=== PATIENT | female | born 1930 | race African-American/Black ===

== ENCOUNTER 2016-09-07 20:20 | Observation (INO) | payer MEDICARE, OTHER ==
[~2016-09-07] VITALS: Ht 162.6 cm; Wt 98.7 kg
[~2016-09-07 20:20] MED LIST: ADVA100A INH; ALBUAER3 INH; ASPI1TAB69 PO; CALCCHW9 CHEW; CARV6.252 PO; FURO1TAB60 PO; HYDR-3533 PO; ISOS30TA3 PO; LISI10TA3 PO; METF500T PO; POTA10TA2 PO; TRIA40P I-ARTICULR; TRIA40P IA; VITA200012 PO
[2016-09-07 20:23] VITALS: BP 210/96; PULSE 72; RESP 20; TEMP 98.1; O2SAT 96
--- NOTE | 2016-09-07 21:07 | PD ---
HPI Chief Complaint: Fall Time Seen by Provider: 20:30 Travel History International Travel<30 days: No Contact w/Intl Traveler<30days: No Traveled to known affect area: No History of Present Illness HPI Patient is an 85-year-old female presenting to emergency for evaluation after a mechanical fall at home approximate hour and half prior to arrival. Consciousness per EMS patient was washing her dog when she fell backwards hitting her back on the bathtub. Patient was given 6 mg of morphine en route as well as IV Zofran. Patient denies any chest pain, shortness of breath, abdominal pain, weakness or numbness in her legs, no saddle paresthesia, no bladder or bowel incontinence. Patient was able to get herself into her living room and then called a friend and then 911 was called when they arrived. Patient rates her pain a 6 out of 10. It's worse with movement, relieved somewhat with rest. PFSH Past Medical History Arthritis: Yes Asthma: Yes Autoimmune Disease: No Blood Disorders: No Anxiety: No Depression: No Heart Rhythm Problems: No Cancer: No High Cholesterol: No Chemotherapy: No Chest Pain: No Congestive Heart Failure: Yes COPD: Yes Cerebrovascular Accident: Yes Coronary Artery Disease: Yes Diabetes: Yes Patient Takes Glucophage: Yes Diminished Hearing: Yes Endocrine: Yes Gastrointestinal Disorders: No GERD: Yes Glaucoma: No Genitourinary: No Headaches: Yes Hepatitis: No Hiatal Hernia: No Hypertension: Yes Immune Disorder: No Implanted Vascular Access Dvce: Yes (AICD, Medtronic) Kidney Stones: No Musculoskeletal: No Psychiatric: No Reproductive: No Integumentary: No Immunizations Current: No Migraines: No Myocardial Infarction: Yes Radiation Therapy: No Renal Failure: No Seizures: No Sickle Cell Disease: No Sleep Apnea: No Thyroid Disease: No Ulcer: No PNEUMOCCOCAL Vaccine (Year): 2010 ?: Not Menopausal: Yes Past Surgical History AICD: No Appendectomy: Yes Arteriovenous Shunt: No Cardiac Surgery: No Cholecystectomy: Yes Ear Surgery: No Endocrine Surgery: No Eye Surgery: No Hysterectomy: Yes Insulin Pump: No Joint Replacement: No Neurologic Surgery: No Oral Surgery: No Pacemaker: Yes Thoracic Surgery: No Other Surgery: No Social History Alcohol Use: No Tobacco Use: Yes (FORMER) Substance Use: No Allergies-Medications (Allergen,Severity, Reaction): Coded Allergies: Effexor (Verified Allergy, Intermediate, swelling, 09/07/16) swelling in feet Reported Meds & Prescriptions Reported Meds & Active Scripts Active Advair Diskus Inh (Fluticasone-Salmeterol Inh) 100-50 Mcg/Blist Aer 1 Puff INH BID Rinse mouth after use. Lisinopril 10 Mg Tab 10 Mg PO DAILY Lasix (Furosemide) 40 Mg Tab 40 Mg PO BID Lortab (Hydrocodone-Acetaminophen) 5-325 Mg Tab 0.5-1 Tab PO Q6HR PRN Proair Hfa 8.5 GM Inh (Albuterol Sulfate) 90 Mcg/Act Aer 2 Puff INH Q4-6H PRN 108 mcg/actuation Isosorbide Mononitrate ER (Isosorbide Mononitrate) 30 Mg [place] 30 Mg PO DAILY Potassium Chloride ER (Potassium Chloride) 10 Meq Tab 10 Meq PO DAILY Carvedilol 6.25 Mg Tab 6.25 Mg PO BID Metformin (Metformin HCl) 500 Mg Tab 500 Mg PO DAILY With a meal Reported Vitamin D3 (Cholecalciferol) 2,000 Unit Tab 2,000 Units PO DAILY Aspirin 81 Mg Tabdr 81 Mg PO DAILY Calcium 1200 (Calcium Carbonate-Vitamin D W/Minerals) 1,200-1,000 Mg-Unit Chew 1 Tab CHEW DAILY Review of Systems Except as stated in HPI: all other systems reviewed are Neg Eyes: No: Blurred Vision HENT: No: Headaches, Neck Pain Cardiovascular: No: Chest Pain or Discomfort Respiratory: No: Shortness of Breath Gastrointestinal: No: Nausea, Abdominal Pain Musculoskeletal: Positive: Myalgias, Cramping, Pain Neurologic: No: Weakness, Focal Abnormalities, Change in Mentation, Sensory Disturbance Physical Exam Narrative GENERAL: Well-developed, well-nourished, elderly female. Resting comfortably in no acute distress. SKIN: Warm and dry. HEAD: Atraumatic. Normocephalic. EYES: Pupils equal and round. No scleral icterus. No injection or drainage. ENT: No nasal bleeding or discharge. Mucous membranes pink and moist. NECK: Trachea midline. No JVD. CARDIOVASCULAR: Regular rate and rhythm. No murmur appreciated. RESPIRATORY: No accessory muscle use. Clear to auscultation. Breath sounds equal bilaterally. GASTROINTESTINAL: Abdomen soft, non-tender, nondistended. Hepatic and splenic margins not palpable. MUSCULOSKELETAL: No obvious deformities. No clubbing. No cyanosis. No edema. Tenderness to palpation noted on lumbar spine. 5/5 muscle strength in bilateral lower extremities, right leg lift elicits pain in the lower back. NEUROLOGICAL: Awake and alert. No obvious cranial nerve deficits. Motor grossly within normal limits. Normal speech. PSYCHIATRIC: Appropriate mood and affect; insight and judgment normal. Data Data Last Documented VS Vital Signs Date Time Temp Pulse Resp B/P Pulse Ox O2 Delivery O2 Flow Rate FiO2 09/07/16 20:23 98.1 72 20 210/[address] Thor Spine W/O Contrast (09/07/16 ) Ct Lumb Spine W/O Contrast (09/07/16 ) LSO (09/07/16 ) Consult Neurosurgery (09/07/16 ) MDM Medical Decision Making Medical Screen Exam Complete: Yes Emergency Medical Condition: Yes Interpretation(s) Vital Signs Date Time Temp Pulse Resp B/P Pulse Ox O2 Delivery O2 Flow Rate FiO2 09/07/16 20:23 98.1 72 20 210/96 96 Differential Diagnosis Sprain versus strain versus discogenic pain versus fracture versus Narrative Course Patient is an 85-year-old female brought in by EMS for evaluation of back pain after mechanical fall at home in the bathroom. Patient slipped and fell on a wet floor while trying to wash her dog. She has significant point tenderness to her lumbar spine, CT scans ordered and pending. Patient is neurologically intact. CT scan of the lumbar spine shows a mild acute compression deformity at L1, there is oblique transverse fracture extending from an anterior cortical margin to the inferior endplate. There is loss of retropulsed fragment. There is no evidence of epidural or paraspinal hematoma. Discussed findings with Dr. Murrieta , neurosurgeon who recommended patient be placed under observation. Patient is followed by Dr. Schneider. The residents were paged and accepted admission on behalf of Dr. Shannan Baugh. LSO brace ordered. Basic labs ordered and pending. Patient is agreeable to stay. Family at bedside. Patient is resting comfortably. Diagnosis Primary Impression: L1 vertebral fracture Qualified Code: S32.019A - Closed fracture of first lumbar vertebra, unspecified fracture morphology, initial encounter Admitting Information Admitting Physician Requests: Observation Condition: Stable Peg Sharp Sep 07, 2016 21:07
[2016-09-07 22:00] VITALS: BP 176/87; PULSE 62; RESP 16; O2SAT 96
--- NOTE | 2016-09-07 22:02 | RADRPT ---
EXAM DATE/TIME: 09/07/2016 21:02 [facility] COMPARISON: No previous studies available for comparison. INDICATIONS : Slip and fall with upper back pain and trauma. RADIATION DOSE: 28.16 CTDIvol (mGy) ; Combined studies - Thoracic Spine/Lumbar Spine MEDICAL HISTORY : Cerebrovascular disease. Hypertension. Cardiovascular disease SURGICAL HISTORY : Appendectomy. Cholecystectomy. ENCOUNTER: Initial ACUITY: 1 day PAIN SCALE: 7/10 LOCATION: Paraspinal TECHNIQUE: Volumetric scanning of the thoracic spine was performed. Multiplanar reconstructions in the sagittal , coronal and oblique axial planes were performed. Using automated exposure control and adjustment o f the mA and/or kV according to patient size, radiation dose was kept as low as reasonably achievable to obtain optimal diagnostic quality images. FINDINGS: Acute fracture is identified of the first lumbar vertebral body. There is an oblique horizontal fract ure extending from the anterior cortex to the inferior endplate involving the anterior inferior jewell n. Mild loss of height is noted. There is no significant epidural hematoma or paraspinal hematoma. An old mild compression deformities identified at T12. Thoracic vertebral bodies are otherwise intact. There is no evidence of additional fractures. Posterior elements are intact. Mild degenerative disc disease with mild spondylosis is noted. CONCLUSION: Acute mild compression fracture of L1. Old compression deformity of T12. No evidence of acute thoracic compression fracture. No evidence of traumatic soft tissue abnormality. Peterson Ludwig MD on September 07, 2016 at 21:56 Board Certified Radiologist. This report was verified electronically.
--- NOTE | 2016-09-07 22:04 | RADRPT ---
EXAM DATE/TIME: 09/07/2016 21:04 [facility] COMPARISON: No previous studies available for comparison. INDICATIONS : Slip and fall with lower back pain and trauma. RADIATION DOSE: 28.16 CTDIvol (mGy) ; Combined studies - Thoracic Spine/Lumbar Spine MEDICAL HISTORY : Cerebrovascular disease. Hypertension. Cardiovascular disease SURGICAL HISTORY : None. ENCOUNTER: Initial ACUITY: 1 day PAIN SCALE: 7/10 LOCATION: Paraspinal TECHNIQUE: Volumetric scanning of the lumbar spine was performed. Multiplanar reconstructions in the sagittal, coronal and oblique axial planes were performed. Using automated exposure control and adjustment of the mA and/or kV according to patient size, radiation dose was kept as low as reasonably achievable t o obtain optimal diagnostic quality images. FINDINGS: A mild acute compression deformities identified of L1. There is oblique transverse fracture extending from the anterior cortical margin to the inferior endplate. There is loss of retropulsed fragment. T here is no evidence of epidural or paraspinal hematoma. Lumbar vertebral bodies are otherwise intact. Advanced facet arthropathy is identified in the lower l umbar spine at the L3-4, L4-5 and L5-S1 levels. CONCLUSION: Acute fracture of the L1 vertebral body as described. Otherwise intact lumbar vertebral bodies. Advanced mid to lower lumbar facet arthropathy. Peterson Ludwig MD on September 07, 2016 at 22:01 Board Certified Radiologist. This report was verified electronically.
[2016-09-07] MEDS: BUDESONIDE-FORMOTEROL 80/4.5 MCG INHALER INH SCH (23:30)
[2016-09-07] MEDS ORDERED: ALBUTEROL SULFATE 90 MCG/ACT HFA 8 GM INHALER INH PRN (23:30)
[2016-09-07] MEDS ORDERED: ACETAMINOPHEN/HYDROcodone 325 MG/5 MG TAB PO PRN (23:30)
--- NOTE | 2016-09-07 23:35 | HHI.HP ---
[facility] Service Family Medicine Primary Care Physician Dinora Schneider MD Admission Diagnosis L1 VERTEBRAL FRACTURE Diagnoses: International Travel<30 Days: No Contact w/Intl Traveler<30days: No Known Affected Area: No History of Present Illness 85 year-old female with impaired balance secondary to R knee arthritis presents to ED with acute low back pain after mechanical fall. Washing her dog in bathtub when when foot slipped on wet tub and she fell backwards, "landing on my butt". She was unable to stand secondary to pain, but crawled to telephone and called EMS. Denies hitting her head, loss of consciousness, or confusion prior to the fall. Reports severe midline lumbar back pain currently, but no other focal pain or weakness. ROS otherwise negative , denies headache, spots in front of her vision, blurry vision, chest pain, shortness of breath, focal weakness, bladder or bowel incontinence, or paraesthesias. She lives alone with her dog and uses cane intermittently for ambulation when her knee acts up. Review of Systems ROS Limitations: Hearing Impaired Constitutional: DENIES: Fever, Chills Eyes: DENIES: Blurred vision Ears, nose, mouth, throat: DENIES: Throat pain, Running Nose Respiratory: DENIES: Cough, Shortness of breath Cardiovascular: COMPLAINS OF: Lower Extremity Edema (Chronic), DENIES: Chest pain, Syncope Gastrointestinal: DENIES: Abdominal pain, Constipation, Diarrhea, Nausea, Vomiting Genitourinary: DENIES: Urgency, Hematuria, Dysuria Musculoskeletal: COMPLAINS OF: Back pain (lumbar), DENIES: Joint pain, Neck pain Integumentary: DENIES: Abnormal pigmentation, Rash Hematologic/lymphatic: DENIES: Bruising Neurologic: COMPLAINS OF: Poor Balance (walks with cane due to R knee pain), DENIES: Headache, Localized weakness, Paresthesias, Speech Problems Psychiatric: DENIES: Confusion, Depression, Hallucinations, Agitation Past Family Social History Past Medical History CHF with AICD (BI-V Medtronic) Asthma /COPD Diabetes mellitus type 2 GERD Chronic headache Depression Hypertension Osteoarthritis History of CVA Coronary artery disease Ventricular tachycardia (AICD in place, Medtronic) Bilateral carpal tunnel syndrome Past Surgical History Appendectomy Cholecystectomy Hysterectomy Bilateral bunionectomy Laparoscopic intestinal abscess drainage AICD placement Reported Medications Current Medications Medications (Trade) Dose Ordered Sig/Michael Route PRN Reason Start Time Stop Time Status Last Admin Dose Admin Albuterol Sulfate (Proair Hfa Inh) 2 puff Q4HR PRN INH SHORTNESS OF BREATH 09/07/16 23:30 UNV Carvedilol (Coreg) 6.25 mg BID PO 09/07/16 23:30 Furosemide (Lasix) 40 mg BID PO 09/07/16 23:30 UNV Acetaminophen/ Hydrocodone Bitart ([place] 5-325 Mg) 1 tab Q6HR PRN PO PAIN 5-10 09/07/16 23:30 UNV Isosorbide Mononitrate (Imdur) 30 mg DAILY@07 PO 09/08/16 07:00 Lisinopril (Prinivil) 10 mg DAILY PO 09/08/16 09:00 UNV Potassium Chloride (KCl) 10 meq DAILY PO 09/08/16 09:00 Non-Formulary Medication 1 puff BID INH AST 09/07/16 23:30 UNV Allergies: Coded Allergies: Effexor (Verified Allergy, Intermediate, swelling, 09/07/16) swelling in feet Family History Mother: of lung cancer in 60s Father: in 70s Grandfather lived to be past 100 Social History Past Medical History CHF with AICD (BI-V Medtronic) Asthma /COPD Diabetes mellitus GERD Headaches Depression Hypertension Osteoarthritis History of CVA Coronary artery disease Lives in elderly community, lives independently with small dog, [place] Support system includes friends and grandson Self-manages medications with pill organizer Denies alcohol, tobacco, or substance use Had a 5 pack year history of smoking. Quit over 40 years ago Physical Exam Vital Signs Vital Signs Date Time Temp Pulse Resp B/P Pulse Ox O2 Delivery O2 Flow Rate FiO2 09/07/16 20:23 98.1 72 20 210/96 96 Physical Exam GENERAL: Adult female in no acute distress. Lying absolutely flat. SKIN: No rashes, ecchymoses or lesions. Warm and dry HEENT: PERRL. EOMI. No nystagmus. No injection or scleral icterus. Oropharynx nonerythematous and without tonsillar exudate, erythema, or swelling. NECK: No lymphadenopathy. No tenderness to palpation of cervical spine. AROM neck full. CV: RRR. Without murmurs or gallop. RESP: Anterior lung exam: lungs clear to auscultation. Breath sounds equal bilaterally. No wheezes or rales. GI: Abdomen soft, non-tender, nondistended. No HSM. No guarding. +BS MSK: Lower extremity peripheral edema, 1+ left, 2+ right. HONG Bandage supporting right knee. No calf tenderness. NEURO: Awake and alert. Cranial nerves II through XII intact. Motor and sensory grossly within normal limits. Sensation intact to light touch in upper and lower extremities. Five out of 5 muscle strength in all muscle groups. Normal speech. Laboratory CBC, CMP, PT/INR, PTT pending Imaging Last Impressions Thoracic Spine CT 09/07/16 0000 Signed Impressions: Service Date/Time: Wednesday, September 07, 2016 21:02 - CONCLUSION: Acute mild compression fracture of L1. Old compression deformity of T12. No evidence of acute thoracic compression fracture. No evidence of traumatic soft tissue abnormality. Peterson Ludwig MD Lumbar Spine CT 09/07/16 0000 Signed Impressions: Service Date/Time: Wednesday, September 07, 2016 21:04 - CONCLUSION: Acute fracture of the L1 vertebral body as described. Otherwise intact lumbar vertebral bodies. Advanced mid to lower lumbar facet arthropathy. Peterson Ludwig MD Assessment and Plan Assessment and Plan 85-year-old AA female admitted 09/07/16 to observation after L1 compression fracture secondary to mechanical fall. Code Status Full Discussed Condition With SDW: Dr. Hodges Problem List: (1) L1 vertebral fracture Status: Acute Plan: L1 compression fracture after mechanical fall in the bathroom while bathing her dog. Impaired balance at baseline secondary to R knee pain/ arthritis. Walks with cane. PCP is Dr. Schneider. Imaging CT thoracic spine: mild compression fracture of L1 with old compression deformity T12. No acute thoracic fracture or soft tissue abnormality CT lumbar spine: compression fracture of L1, as above. Advanced lumbar facet arthropathy. Plan: -Admit to observation under Dr. Baugh/FPTS team -Neurosurgery consulted -Dr. Murrieta reviewed imaging, plans to see patient in the morning -LSO brace -NPO after midnight except PO meds in case of surgery tomorrow -PT/OT consulted, to evaluate 09/08/16 after neurosurgery recommendations -Case management consulted for assistance with discharge arrangements, if needed -Pain control -Continue home [place] 5-325 q6h PRN pain 3-10 -Morphine 2mg q4h PRN breakthrough pain -Bowel reg: Lucrecia-Colace 2 tabs BID MICHAEL -Supportive treatment -Vitals q4h, Bed rest with BRP, O2 supplementation PRN to maintain saturations 89%+ (2) CHF (NYHA class III, ACC/AHA stage C) Status: Acute Plan: CHF with biventricular AICD -Hold home aspirin 81mg daily -Continue home Lasix 40mg PO BID -Continue KCl ER 10mEq daily -Continue Imdur 30mg PO daily -Not currently on a statin, requires further chart review. (3) Essential hypertension Status: Chronic Plan: -Continue lisinopril 10 mg PO daily -Continue carvedilol 6.25mg PO BID -Hydralazine PRN B/P 180/100+ (4) Diabetes mellitus type 2 Status: Chronic Plan: Well-controlled. A1C January 2016 5.8%. Good kidney function with baseline Cr 1.1. -Hold home metformin 500mg 1 tab daily -Accue-checks acHS with [facility] (5) Asthma Status: Acute Plan: -Continue albuterol 2 puff q4h PRN -Continue Symbicort 2 puff BID MICHAEL (6) Vitamin D deficiency Status: Chronic Plan: -Hold home calcium and vitamin D supplements (7) Fluids, Electrolytes, Nutrition, Prophylaxis Status: Acute Plan: Fluids: 1/2MIVF secondary to Class III CHF, NS @65mL/hr Electrolyte: monitor and replete, as needed, on chronic potassium supplementation Nutrition: NPO after midnight except PO meds DVT prophylaxis: SCD, pharmacological prophylaxis contraindicated in case of possible surgery GI prophylaxis: not indicated Bowel regiment: Miralax daily Problem Qualifiers (1) L1 vertebral fracture: Qualified Code: S32.019A - Closed fracture of first lumbar vertebra, unspecified fracture morphology, initial encounter (2) Asthma: Qualified Code: J45.20 - Mild intermittent asthma without complication Karolina Licona MD R1 Sep 07, 2016 23:35
[2016-09-08] MEDS ORDERED: NALOXONE HCL 0.4 MG/ML AMP IV PRN (00:15)
[2016-09-08] MEDS ORDERED: SODIUM CHLORIDE 0.9% FLUSH 5 ML FLUSH FLUSH PRN (00:15)
[2016-09-08] MEDS ORDERED: ONDANSETRON HCL 4 MG/2 ML VIAL IVP PRN (00:15)
[2016-09-08] MEDS ORDERED: ACETAMINOPHEN 325 MG TAB PO PRN (00:15)
[2016-09-08] MEDS ORDERED: hydrALAZINE HCL 20 MG/ML VIAL IV PRN (01:00)
[2016-09-08] MEDS ORDERED: GLUCAGON 1 MG/ML VIAL OTHER PRN (01:00)
[2016-09-08] MEDS ORDERED: DEXTROSE 50% IN WATER 50 ML VIAL(D50) IV PUSH PRN (01:00)
[2016-09-08] MEDS: CARVEDILOL 6.25 MG TAB PO SCH ×3 (01:03→21:11)
[2016-09-08] MEDS: SODIUM CHLORIDE 0.9% FLUSH 5 ML FLUSH FLUSH SCH ×3 (01:04→21:11)
[2016-09-08] MEDS: FUROSEMIDE 40 MG TAB PO SCH ×3 (01:04→21:00)
[2016-09-08 01:09] LABS: AUTOMATED NEUTROPHIL # 7.8 TH/MM3 (1.8-7.7); BASOPHIL % 0.5 % (0.0-2.0); EOSINOPHIL % 0.2 % (0.0-4.0); HEMATOCRIT 34.3 % (35.0-46.0); HEMO FLAGS DIFF FINAL; LYMPH % 10.7 % (9.0-44.0); MEAN CELL VOLUME 82.2 FL (80.0-100.0); MEAN CORPUSCULAR HEMOGLOBIN 26.6 PG (27.0-34.0); MEAN CORPUSCULAR HGB CONC 32.3 % (32.0-36.0); MONO % 7.7 % (0.0-8.0); NEUT % 80.9 % (16.0-70.0); PLATELET COUNT 191 TH/MM3 (150-450); RED BLOOD COUNT 4.17 MIL/MM3 (4.00-5.30); RED CELL DISTRIBUTION WIDTH 14.1 % (11.6-17.2); WHITE BLOOD COUNT 9.6 TH/MM3 (4.0-11.0)
[2016-09-08 01:10] VITALS: BP 149/68; PULSE 68; RESP 18; O2SAT 97
[2016-09-08 01:18] LABS: APTT (PATIENT) 25.9 SEC (24.3-30.1); INTERNATIONAL NORMALIZED RATIO 0.9 RATIO; PROTHROMBIN TIME - PATIENT 10.4 SEC (9.8-11.6)
[2016-09-08 01:34] LABS: ALT (GPT) 34 U/L (10-53); ANION GAP 8 MEQ/L (5-15); AST (GOT) 29 U/L (15-37); BICARBONATE 26.4 MEQ/L (21.0-32.0); BLOOD UREA NITROGEN 27 MG/DL (7-18); CHLORIDE 108 MEQ/L (98-107); GLOMERULAR FILTRATION RATE 55 ML/MIN (>89); POTASSIUM 4.5 MEQ/L (3.5-5.1); SODIUM (NA) 142 MEQ/L (136-145)
[2016-09-08 01:35] LABS: ALKALINE PHOSPHATASE 72 U/L (45-117); TOTAL BILIRUBIN ADULT 0.3 MG/DL (0.2-1.0)
[2016-09-08] MEDS: SODIUM CHLOR 0.9% 1000 ML INJ 1,000 ML IV SCH ×2 (01:58→15:25)
[2016-09-08] MEDS: MORPHINE SULFATE 4 MG/ML INJ IV PUSH PRN ×2 (04:05→17:45)
[2016-09-08 04:28] VITALS: BP 162/79; PULSE 67; RESP 16; O2SAT 98
[2016-09-08] MEDS: ISOSORBIDE MONONITRATE 30 MG TAB PO SCH (06:20)
[2016-09-08] MEDS ORDERED: INSULIN ASPART SUPPLEMENTAL SCALE SQ SCH (07:00)
[2016-09-08] MEDS: BUDESONIDE-FORMOTEROL 80/4.5 MCG INHALER INH SCH ×2 (09:00→21:00)
[2016-09-08] MEDS ORDERED: LISINOPRIL 10 MG TAB PO SCH (09:00)
[2016-09-08 09:09] VITALS: BP 182/84; PULSE 64; RESP 18; O2SAT 99
[2016-09-08] MEDS: POTASSIUM CHLORIDE 10 MEQ CONTROLLED RELEASE TAB PO SCH (09:47)
[2016-09-08] MEDS: DOCUSATE SODIUM 50 MG/SENNA 8.6 MG TAB PO SCH ×2 (09:48→21:00)
--- NOTE | 2016-09-08 10:32 | HHI.HP ---
[facility] Service Family Medicine Primary Care Physician Dinora Schneider MD Admission Diagnosis L1 VERTEBRAL FRACTURE Diagnoses: (1) L1 vertebral fracture Diagnosis: Principal (2) CHF (NYHA class III, ACC/AHA stage C) Diagnosis: Principal (3) Essential hypertension Diagnosis: Principal (4) Diabetes mellitus type 2 Diagnosis: Principal (5) Asthma Diagnosis: Principal (6) Vitamin D deficiency Diagnosis: Principal (7) Fluids, Electrolytes, Nutrition, Prophylaxis Diagnosis: Principal International Travel<30 Days: No Contact w/Intl Traveler<30days: No Known Affected Area: No History of Present Illness Ms Davis is an 85 year-old female with impaired balance secondary to R knee arthritis who presented to ED with acute low back pain after mechanical fall. Washing her dog in bathtub when when foot slipped on wet tub and she fell backwards, "landing on my butt". She was unable to stand secondary to pain, but crawled to telephone and called EMS. Denies hitting her head, loss of consciousness, or confusion prior to the fall. Reports severe midline lumbar back pain currently, but no other focal pain or weakness. ROS otherwise negative, denies headache, spots in front of her vision, blurry vision , chest pain, shortness of breath, focal weakness, bladder or bowel incontinence , or paraesthesias. She lives alone with her dog and uses cane intermittently for ambulation when her knee acts up. She was placed in Observation as she has an acute L1 fracture. Neurosurgery is consulted. She has pain with movement but feels fine lying in bed. Review of Systems Other ROS Limitations: Hearing Impaired Constitutional: DENIES: Fever, Chills Eyes: DENIES: Blurred vision Ears, nose, mouth, throat: DENIES: Throat pain, Running Nose Respiratory: DENIES: Cough, Shortness of breath Cardiovascular: COMPLAINS OF: Lower Extremity Edema (Chronic), DENIES: Chest pain, Syncope Gastrointestinal: DENIES: Abdominal pain, Constipation, Diarrhea, Nausea, Vomiting Genitourinary: DENIES: Urgency, Hematuria, Dysuria Musculoskeletal: COMPLAINS OF: Back pain (lumbar), DENIES: Joint pain, Neck pain Integumentary: DENIES: Abnormal pigmentation, Rash Hematologic/lymphatic: DENIES: Bruising Neurologic: COMPLAINS OF: Poor Balance (walks with cane due to R knee pain), DENIES: Headache, Localized weakness, Paresthesias, Speech Problems Psychiatric: DENIES: Confusion, Depression, Hallucinations, Agitation Past Family Social History Past Medical History CHF with AICD (BI-V [employer]) Asthma /COPD Diabetes mellitus type 2 GERD Chronic headache Depression Hypertension Osteoarthritis History of CVA Coronary artery disease Ventricular tachycardia (AICD in place, Medtronic) Bilateral carpal tunnel syndrome Past Surgical History Appendectomy Cholecystectomy Hysterectomy Bilateral bunionectomy Laparoscopic intestinal abscess drainage AICD placement Allergies: Coded Allergies: Effexor (Verified Allergy, Intermediate, swelling, 09/07/16) swelling in feet Family History Mother: of lung cancer in 60s Father: in 70s Grandfather lived to be past 100 Social History Lives in elderly community, lives independently with small dog, [place] Support system includes friends and grandson, has family nearby Self-manages medications with pill organizer Denies alcohol, tobacco, or substance use Had a 5 pack year history of smoking. Quit over 40 years ago Physical Exam Vital Signs Vital Signs Date Time Temp Pulse Resp B/P Pulse Ox O2 Delivery O2 Flow Rate FiO2 09/08/16 09:09 64 18 182/84 99 09/08/16 04:28 67 16 162/79 98 Nasal Cannula 2 09/08/16 04:19 16 09/08/16 01:10 68 18 149/68 97 Nasal Cannula 2 09/07/16 22:00 62 16 176/87 96 Nasal Cannula 2 09/07/16 20:23 98.1 72 20 210/96 96 Physical Exam GENERAL: Adult female in no acute distress. Lying absolutely flat. SKIN: No rashes, ecchymoses or lesions. Warm and dry HEENT: PERRL. EOMI. No nystagmus. No injection or scleral icterus. Oropharynx nonerythematous and without tonsillar exudate, erythema, or swelling. NECK: No lymphadenopathy. No tenderness to palpation of cervical spine. AROM neck full. CV: RRR. Without murmurs or gallop. RESP: Anterior lung exam: lungs clear to auscultation. Breath sounds equal bilaterally. No wheezes or rales. GI: Abdomen soft, non-tender, nondistended. No HSM. No guarding. +BS MSK: Lower extremity peripheral edema, 1+ left, 2+ right. HONG Bandage supporting right knee. No calf tenderness. NEURO: Awake and alert. Cranial nerves II through XII intact. Motor and sensory grossly within normal limits. Sensation intact to light touch in upper and lower extremities. Five out of 5 muscle strength in all muscle groups. Normal speech. Laboratory Laboratory Tests Test 09/08/16 01:00 White Blood Count 9.6 Red Blood Count 4.17 Hemoglobin 11.1 Hematocrit 34.3 Mean Corpuscular Volume 82.2 Mean Corpuscular Hemoglobin 26.6 Mean Corpuscular Hemoglobin 32.3 Concent Red Cell Distribution Width 14.1 Platelet Count 191 Mean Platelet Volume 8.8 Neutrophils (%) (Auto) 80.9 Lymphocytes (%) (Auto) 10.7 Monocytes (%) (Auto) 7.7 Eosinophils (%) (Auto) 0.2 Basophils (%) (Auto) 0.5 Neutrophils # (Auto) 7.8 Lymphocytes # (Auto) 1.0 Monocytes # (Auto) 0.7 Eosinophils # (Auto) 0.0 Basophils # (Auto) 0.0 CBC Comment DIFF FINAL Differential Comment Erythrocyte Sedimentation Rate 29 Prothrombin Time 10.4 Prothromb Time International 0.9 Ratio Activated Partial 25.9 Thromboplast Time Sodium Level 142 Potassium Level 4.5 Chloride Level 108 Carbon Dioxide Level 26.4 Anion Gap 8 Blood Urea Nitrogen 27 Creatinine 1.13 Estimat Glomerular Filtration 55 Rate Random Glucose 124 Calcium Level 8.6 Total Bilirubin 0.3 Aspartate Amino Transf 29 (AST/SGOT) Alanine Aminotransferase 34 (ALT/SGPT) Alkaline Phosphatase 72 Total Protein 6.6 Albumin 3.2 Result Diagram: 09/08/16 0100 09/08/16 0100 Imaging Last Impressions Thoracic Spine CT 09/07/16 0000 Signed Impressions: Service Date/Time: Wednesday, September 07, 2016 21:02 - CONCLUSION: Acute mild compression fracture of L1. Old compression deformity of T12. No evidence of acute thoracic compression fracture. No evidence of traumatic soft tissue abnormality. Peterson Ludwig MD Lumbar Spine CT 09/07/16 0000 Signed Impressions: Service Date/Time: Wednesday, September 07, 2016 21:04 - CONCLUSION: Acute fracture of the L1 vertebral body as described. Otherwise intact lumbar vertebral bodies. Advanced mid to lower lumbar facet arthropathy. Peterson Ludwig MD Assessment and Plan Assessment and Plan 85-year-old AA female admitted 09/07/16 to observation after L1 compression fracture secondary to mechanical fall. Unsure what treatment she will need acutely but will likely need support after discharge Problem List: (1) L1 vertebral fracture Status: Acute Plan: L1 compression fracture after mechanical fall in the bathroom while bathing her dog. Impaired balance at baseline secondary to R knee pain/ arthritis. Walks with cane. PCP is Dr. Schneider. Imaging CT thoracic spine: mild compression fracture of L1 with old compression deformity T12. No acute thoracic fracture or soft tissue abnormality CT lumbar spine: compression fracture of L1, as above. Advanced lumbar facet arthropathy. Plan: -Admit to observation under Dr. Baugh/BLAKE team -Neurosurgery consulted -Dr. Murrieta reviewed imaging, plans to see patient in the morning -LSO brace -NPO after midnight except PO meds in case of surgery tomorrow -PT/OT consulted, to evaluate 09/08/16 after neurosurgery recommendations -Case management consulted for assistance with discharge arrangements, if needed -Pain control -Continue home [place] 5-325 q6h PRN pain 3-10 -Morphine 2mg q4h PRN breakthrough pain -Bowel reg: Lucrecia-Colace 2 tabs BID MEG -Supportive treatment -Vitals q4h, Bed rest with BRP, O2 supplementation PRN to maintain saturations 89%+ (2) CHF (NYHA class III, ACC/AHA stage C) Status: Acute Plan: CHF with biventricular AICD -Hold home aspirin 81mg daily -Continue home Lasix 40mg PO BID -Continue KCl ER 10mEq daily -Continue Imdur 30mg PO daily -Not currently on a statin, requires further chart review. (3) Essential hypertension Status: Chronic Plan: -Continue lisinopril 10 mg PO daily -Continue carvedilol 6.25mg PO BID -Hydralazine PRN B/P 180/100+ (4) Diabetes mellitus type 2 Status: Chronic Plan: Well-controlled. A1C January 2016 5.8%. Good kidney function with baseline Cr 1.1. -Hold home metformin 500mg 1 tab daily -Accue-checks acHS with [facility] (5) Asthma Status: Acute Plan: -Continue albuterol 2 puff q4h PRN -Continue Symbicort 2 puff BID MEG (6) Vitamin D deficiency Status: Chronic Plan: -Hold home calcium and vitamin D supplements (7) Fluids, Electrolytes, Nutrition, Prophylaxis Status: Acute Plan: Fluids: 1/2MIVF secondary to Class III CHF, NS @65mL/hr Electrolyte: monitor and replete, as needed, on chronic potassium supplementation Nutrition: NPO after midnight except PO meds DVT prophylaxis: SCD, pharmacological prophylaxis contraindicated in case of possible surgery GI prophylaxis: not indicated Bowel regiment: Miralax daily Problem Qualifiers (1) L1 vertebral fracture: Qualified Code: S32.019A - Closed fracture of first lumbar vertebra, unspecified fracture morphology, initial encounter (2) Asthma: Qualified Code: J45.20 - Mild intermittent asthma without complication Shannan Baugh MD Sep 08, 2016 10:32
--- NOTE | 2016-09-08 10:39 | RADRPT ---
EXAM DATE/TIME: 09/08/2016 10:16 [place] COMPARISON: No previous studies available for comparison. INDICATIONS : Low back/pelvic pain post fall. MEDICAL HISTORY : Myocardial infarction. Gastroesophageal reflux disease. Hypertension. COPD. CHF. Asthma. CVA. SURGICAL HISTORY : Appendectomy. Hysterectomy. Cholecystectomy. ENCOUNTER: Subsequent ACUITY: 2 days PAIN SCORE: 10/10 LOCATION: pelvis FINDINGS: A single frontal view of the pelvis demonstrates no evidence of fracture. The bony pelvic ring is in tact. Bony mineralization is normal. The soft tissues are intact. CONCLUSION: Unremarkable examination of the pelvis. Jonnathan Crawford MD on September 08, 2016 at 10:37 Board Certified Radiologist. This report was verified electronically.
--- NOTE | 2016-09-08 10:54 | PD.CONS ---
(Kelvin Murrieta MD) HPI Consult Requested By Primary Care Physician Dinora Schneider MD (Kelvin Murrieta MD) Service NRS Consult Requested By ED Physician Reason for Consult L1 fracture History of Present Illness Ms. Tess Davis is an 85 year female who presented for acute back pain. She was washing her dog in bathtub yesterday when she slipped and fell backwards landing on her buttocks. She reports of immediate severe low back pain and called EMS. She reports her pain is in the lumbar region, that becomes severe when she tries to move. She denies any radiating pain, sensory loss, focal weakness in her lower extremities. She denies bowel or bladder incontinence. She has a history of arthritis to the knee and uses a cane for ambulation. CT L spine shows an acute compression fracture of L1. A neurosurgical evaluation was requested. (Lisa Mtz) Review of Systems Constitutional: DENIES: Fever, Chills Eyes: DENIES: Diplopia Ears, nose, mouth, throat: DENIES: Tinnitus, Vertigo Respiratory: DENIES: Apneas, Cough, Hemoptysis, Shortness of breath Cardiovascular: DENIES: Chest pain, Palpitations Gastrointestinal: DENIES: Abdominal pain, Nausea, Vomiting Genitourinary: DENIES: Urinary incontinence Musculoskeletal: COMPLAINS OF: Joint pain, Back pain Neurologic: DENIES: Abnormal gait, Localized weakness, Paresthesias Psychiatric: DENIES: Hallucinations (Lisa Mtz) Past Family Social History Allergies: Coded Allergies: Effexor (Verified Allergy, Intermediate, swelling, 09/07/16) swelling in feet Past Medical History COPD Diabetes Congestive Heart Failure GERD Hypertension Osteoarthritis Hx of CVA CAD Past Surgical History AICD Placement Hysterectomy Appendectomy Cholecystectomy Reported Medications reviewed in EMR Active Ordered Medications Current Medications Medications (Trade) Dose Ordered Sig/Michael Route PRN Reason Start Time Stop Time Status Last Admin Dose Admin Albuterol Sulfate (Proair Hfa Inh) 2 puff Q4HR PRN INH SHORTNESS OF BREATH 09/07/16 23:30 Carvedilol (Coreg) 6.25 mg BID PO 09/07/16 23:30 09/08/16 09:47 Furosemide (Lasix) 40 mg BID PO 09/07/16 23:30 09/08/16 09:47 Acetaminophen/ Hydrocodone Bitart ([place] 5-325 Mg) 1 tab Q6HR PRN PO PAIN 5-10 09/07/16 23:30 Isosorbide Mononitrate (Imdur) 30 mg DAILY@07 PO 09/08/16 07:00 09/08/16 06:20 Potassium Chloride (KCl) 10 meq DAILY PO 09/08/16 09:00 09/08/16 09:47 Budesonide/ Formoterol Fumarate 2 puff 2 puff BID INH AST 09/07/16 23:30 Sodium Chloride (NS 1000 ml Inj) 1,000 ml @ 65 mls/hr [id number] IV 09/08/16 00:01 09/08/16 01:58 IV Flush (NS Flush) 2 ml UNSCH PRN FLUSH FLUSH AFTER USING IV ACCESS 09/08/16 00:15 IV Flush (NS Flush) 2 ml BID FLUSH 09/08/16 00:15 09/08/16 01:04 Acetaminophen (Tylenol) 650 mg Q4H PRN PO TEMP > 100.4 09/08/16 00:15 Ondansetron HCl (Zofran Inj) 4 mg Q6H PRN IVP NAUSEA OR VOMITING 09/08/16 00:15 Naloxone HCl (Narcan Inj) 0.4 mg UNSCH PRN IV SEE LABEL COMMENTS 09/08/16 00:15 Morphine Sulfate (Morphine Inj) 2 mg Q4HR PRN IV PUSH BREAKTHROUGH PAIN 09/08/16 00:15 09/08/16 04:05 Senna/Docusate Sodium (Lucrecia-Colace) 2 tab BID PO 09/08/16 09:00 09/08/16 09:48 Hydralazine HCl (Apresoline Inj) 10 mg Q6H PRN IV SBP> OR = 180, DBP> OR = 100 09/08/16 01:00 Dextrose (D50w (Vial) Inj) 25 ml UNSCH PRN IV PUSH HYPOGLYCEMIA-SEE COMMENTS 09/08/16 01:00 Glucagon (Glucagon Inj) 1 mg UNSCH PRN OTHER HYPOGLYCEMIA-SEE COMMENTS 09/08/16 01:00 Lisinopril (Prinivil) 20 mg DAILY PO 09/09/16 09:00 Enalaprilat (Vasotec Inj) 1.25 mg Q8H PRN IV PUSH SBP>170, DBP>90 09/08/16 11:00 Family History Mother: Lung CA Social History Denies alcohol abuse, tobacco, or illicit drug use (Lias Mtz) Physical Exam Vital Signs Vital Signs Date Time Temp Pulse Resp B/P Pulse Ox O2 Delivery O2 Flow Rate FiO2 09/08/16 09:09 64 18 182/84 99 09/08/16 04:28 67 16 162/79 98 Nasal Cannula 2 09/08/16 04:19 16 09/08/16 01:10 68 18 149/68 97 Nasal Cannula 2 09/07/16 22:00 62 16 176/87 96 Nasal Cannula 2 09/07/16 20:23 98.1 72 20 210/96 96 Laboratory Laboratory Tests Test 09/08/16 01:00 White Blood Count 9.6 Red Blood Count 4.17 Hemoglobin 11.1 Hematocrit 34.3 Mean Corpuscular Volume 82.2 Mean Corpuscular Hemoglobin 26.6 Mean Corpuscular Hemoglobin 32.3 Concent Red Cell Distribution Width 14.1 Platelet Count 191 Mean Platelet Volume 8.8 Neutrophils (%) (Auto) 80.9 Lymphocytes (%) (Auto) 10.7 Monocytes (%) (Auto) 7.7 Eosinophils (%) (Auto) 0.2 Basophils (%) (Auto) 0.5 Neutrophils # (Auto) 7.8 Lymphocytes # (Auto) 1.0 Monocytes # (Auto) 0.7 Eosinophils # (Auto) 0.0 Basophils # (Auto) 0.0 CBC Comment DIFF FINAL Differential Comment Erythrocyte Sedimentation Rate 29 Prothrombin Time 10.4 Prothromb Time International 0.9 Ratio Activated Partial 25.9 Thromboplast Time Sodium Level 142 Potassium Level 4.5 Chloride Level 108 Carbon Dioxide Level 26.4 Anion Gap 8 Blood Urea Nitrogen 27 Creatinine 1.13 Estimat Glomerular Filtration 55 Rate Random Glucose 124 Calcium Level 8.6 Total Bilirubin 0.3 Aspartate Amino Transf 29 (AST/SGOT) Alanine Aminotransferase 34 (ALT/SGPT) Alkaline Phosphatase 72 Total Protein 6.6 Albumin 3.2 (Kelvin Murrieta MD) Physical Exam Ms. Davis is alert, awake and oriented to time, place and person. Speech is fluent. Follows commands without apraxia. Cranial nerve examination demonstrates the pupils to be equal, round, and reactive to light. Extra-ocular movements are intact. Facial motor and sensory function are normal and symmetrical. Gross hearing is generally decreased bilaterally. The uvula is midline and elevates symmetrically with the soft palate. Sternocleidomastoid and trapezius muscles have normal and symmetrical strength. Other cranial nerves are intact. Cervical spine has decreased range of motion in anterior flexion, extension, lateral bending, and rotation due to age related spondylosis. Muscle strength is 5/5 in all muscle groups of both upper extremities including deltoid, biceps, triceps, brachioradialis, wrist extension and senior maintenance technician. In the lower extremities, strength is 5/5 in both iliopsoas, 4+ quadriceps, hamstrings with complaints of chronic knee pain, 5/5 plantar flexion, dorsiflexion, and extensor hallicus longus. Sensory examination is intact to light touch in both the upper and lower extremities, symmetrically. Deep tendon reflexes are 1+ and symmetrical in the biceps, triceps, and brachioradialis, bilaterally, in the upper extremities. In the lower extremities, the patellar are trace, and Achilles are 1+, bilaterally. There is a bilateral plantar flexion response. Hoffmanns sign is negative. Cerebellar examination is intact to [id number] test. (Lisa Mtz) Result Diagram: 09/08/16 0100 09/08/16 0100 Imaging Last Impressions Pelvis X-Ray 09/08/16 0000 Signed Impressions: Service Date/Time: September 10:16 - CONCLUSION: Unremarkable examination of the pelvis. Jonnathan Crawford MD Thoracic Spine CT 09/07/16 0000 Signed Impressions: Service Date/Time: Wednesday, September 07, 2016 21:02 - CONCLUSION: Acute mild compression fracture of L1. Old compression deformity of T12. No evidence of acute thoracic compression fracture. No evidence of traumatic soft tissue abnormality. Peterson Ludwig MD Lumbar Spine CT 09/07/16 0000 Signed Impressions: Service Date/Time: Wednesday, September 07, 2016 21:04 - CONCLUSION: Acute fracture of the L1 vertebral body as described. Otherwise intact lumbar vertebral bodies. Advanced mid to lower lumbar facet arthropathy. Peterson Ludwig MD (Lisa Mtz) Attending Statement I have reviewed her clinical and further studies. neuro checks in a serial fashion. She has suffered a subacute fracture at L1. The erythematous treatment were discussed. She would benefit by a kyphoplasty.. I have discussed with her the details including the [id number] details of the surgical procedure, its indications, alternatives, risks, and potential complications. Risks and potential complications include, but are not limited to, infection, blood loss, CSF leak, partial or complete loss of sight in one or both eyes, paresis, paralysis, permanent pain or difficulty swallowing, loss of bowel or bladder function, complications from anesthesia, blood clot, stroke , myocardial infarction, or even . Respiratory. pulmonary toilette, nasotracheal suction, and breathing treatments with nebulizers. PT and OT eval Nutrition. NPO after midnoght Renal. monitor closely urine output, BUN and creatinine Endocrine. Monitor serial Acu checks and SSI for tight control ID monitor for signs of infection Protonix for stress ulcer prophylaxis Edgar hose and SCD's for DVT prophylaxis The exam, history, and the medical decision-making described in the above note were completed with the assistance of the mid-level provider. I reviewed and agree with the findings presented. I attest that I had a [id number] encounter with the patient on the same day, and personally performed and documented my assessment and findings in the medical record. (Kelvin Murrieta MD) Kelvin Murrieta MD Sep 08, 2016 10:53 Lisa Mtz Sep 08, 2016 13:27
[2016-09-08] MEDS ORDERED: ENALAPRILAT 1.25 MG/ML VIAL IV PUSH PRN (11:00)
[2016-09-08] MEDS ORDERED: ACETAMINOPHEN/HYDROcodone 325 MG/5 MG TAB PO PRN ×2 (13:45)
--- NOTE | 2016-09-08 14:32 | OTSOAPIP ---
TIME SESSION COMPLETED: TREATMENT TIME: 0 MINS. CHART REVIEWED. RECEIVED OCCUPATIONAL THERAPY ORDERS STATING "OCCUPATIONAL THERAPY EVALUATE AND TREAT 09/08/16 AFTER RECOMMENDATIONS FROM NEUROSURGERY." REVIEWED ELECTRONIC MEDICAL RECORD AND PER DR. WHELAN' NOTES, RECOMMENDATION IS FOR PATIENT TO UNDERGO SURGERY KYPHOPLASTY. WILL FOLLOW UP AND EVALUATION S/P SURGERY. INTERDISCIPLINARY COMMUNICATION: REVIEWED ELECTRONIC MEDICAL RECORD Therapist: Bettie Zimmerman, OTR/L Signature on file
--- NOTE | 2016-09-08 19:03 | EC ---
Study Study Date:09/08/2016 STUDY CONCLUSIONS SUMMARY - Left ventricle: The cavity size was normal. Wall thickness was increased in a pattern of moderate LVH. Systolic function was severely reduced. The estimated ejection fraction was in the range of 25% to 30%. Wall motion was normal; there were no regional wall motion abnormalities. - Pulmonary arteries: PA peak pressure: 55mm Hg (S). If LV function is below 40, please consider prescribing an ACEI or ARB or document rationale for non-use. PROCEDURE DATA STUDY STATUS: Elective. Procedure: Transthoracic echocardiography. Image quality was poor. Scanning was performed from the parasternal, apical, and subcostal acoustic windows. Study completion: The patient tolerated the procedure well. Transthoracic echocardiography. M-mode, complete 2D, complete spectral Doppler, and color Doppler. Patient status: Inpatient. CARDIAC ANATOMY LEFT VENTRICLE: The cavity size was normal. Wall thickness was increased in a pattern of moderate LVH. Systolic function was severely reduced. The estimated ejection fraction was in the range of 25% to 30%. Wall motion was normal; there were no regional wall motion abnormalities. AORTIC VALVE: Trileaflet; mildly thickened, mildly calcified leaflets. Doppler: Transvalvular velocity was within the normal range. There was no stenosis. No regurgitation. AORTA: Aortic root: The aortic root was normal in size. MITRAL VALVE: Structurally normal valve. Doppler: Transvalvular velocity was within the normal range. There was no evidence for stenosis. No regurgitation. Valve area by pressure half-time: 2.68cm^2. LEFT ATRIUM: The atrium was normal in size. RIGHT VENTRICLE: The cavity size was normal. Wall thickness was normal. PULMONIC VALVE: Doppler: Transvalvular velocity was within the normal range. There was no evidence for stenosis. No regurgitation. TRICUSPID VALVE: Structurally normal valve. Doppler: Transvalvular velocity was within the normal range. No regurgitation. PULMONARY ARTERY: The main pulmonary artery was normal-sized. Systolic pressure was within the normal range. RIGHT ATRIUM: The atrium was normal in size. PERICARDIUM: There was no pericardial effusion. SYSTEMIC VEINS: Inferior vena cava: The vessel was normal in size. BASIC MEASUREMENTS ADULT Normal Left ventricle LV internal dimension, ED, chordal level, 50.2 mm 43-52 PLAX LV internal dimension, ES, chordal level, *45.8 mm 23-38 PLAX Fractional shortening, chordal level, PLAX *9 % >29 LV posterior wall thickness, ED 16.8 mm IVS/LVPW ratio, ED *1.68 <1.3 Ventricular septum Septal thickness, ED 28.2 mm Aortic valve Leaflet separation 21 mm 15-26 Right ventricle RV internal dimension, ED, PLAX 30 mm 19-38 BASIC MEASUREMENTS ADULT Normal Aortic valve Leaflet separation 21 mm 15-26 Aorta Root diameter, ED *40 mm 20-37 Left atrium Anterior-posterior dimension, ES 38 mm 19-40 LA/aortic root ratio 0.95 DOPPLER MEASUREMENTS ADULT Normal Main pulmonary artery Pressure, S *55 mm Hg =30 Mitral valve Pressure half-time 82 ms Valve area, pressure half-time 2.68 cm^2 Tricuspid valve Regurgitant peak velocity 337 cm/s Peak RV-RA gradient, S 45 mm Hg Maximal regurgitant velocity 337 cm/s Systemic veins Estimated CVP 10 mm Hg Right ventricle RV pressure, S *55 mm Hg <30 LEGEND: Mean values are shown as u=mean value. Asterisk (*) cervantes values outside specified normal range. Prepared and signed by Lazarus Zamora [id number]
[2016-09-08 19:08] VITALS: BP 152/70; PULSE 90; RESP 18; O2SAT 96
--- NOTE | 2016-09-08 21:12 | MB ---
cc: HECTOR JIMÉNEZ BETH A. MD FRITZE,GEORGINA Aguilar MD (FAX TO DR. LOOMIS AND DR. SCHNEIDER) DATE OF CONSULTATION 09/08/[address] Georgina Schneider PRIMARY URBAN RENEWAL MANAGER Dr. Lisa Loomis. REASON FOR CONSULTATION Cardiovascular risk assessment preoperatively HISTORY OF PRESENT ILLNESS Tess Davis is a pleasant 85-year-old -[place] female who presented to [facility] emergency room on September 08, 2016 after a mechanical fall. She states she was washing her dog in the bathroom when her right knee gave out, possibly due to slipping on a wet area landing on her backside. She crawled on the telephone and called EMS. She had no injury to her head or syncopal episode. She currently has mid lumbar back pain. She denies chest pain, shortness of breath or palpitations before the episode or currently. She uses the cane for ambulation only when her right knee is bothering her, but otherwise does chores around her house without a problem. PAST MEDICAL HISTORY 1. Nonischemic cardiomyopathy. 2. Chronic systolic heart failure (ACC/AHA stage C) 3. COPD 4. Type 2 diabetes mellitus 5. Gastroesophageal reflux disease 6. Depression 7. Hypertension 8. Osteoarthritis 9. History of CVA. 10. Nonsustained VT. 11. Bilateral carpal tunnel syndrome. PAST SURGICAL HISTORY 1. AICD placement for nonischemic cardiomyopathy and history of nonsustained VT. 2. Appendectomy. 3. Cholecystectomy. 4. Hysterectomy 5. Bilateral bunionectomy 6. Laparoscopic intestinal abscess drainage 7. Previous cardiac catheterization showing no significant coronary artery disease. ALLERGIES EFFEXOR MEDICATIONS 1. Lisinopril 10 mg daily 2. Albuterol 2 puffs every 4-6 hours as needed for shortness of breath. 3. Coreg 6.25 mg b.i.d. 4. Metformin 500 mg daily 5. Lasix 40 mg b.i.d. 6. Imdur 30 mg daily 7. Aspirin 81 mg daily 8. Potassium 10 mEq daily. FAMILY HISTORY Mother of lung cancer in her 60s. Father in his 70s. SOCIAL HISTORY The patient currently lives in an elderly community but lives independently. She denies current alcohol, tobacco or substance abuse. She previously smoked for a short period of time but quit over 40 years ago. She takes care of her house including the chores by herself. REVIEW OF SYSTEMS 14-systems were reviewed in the history and physical and above pertinent positives and negatives as above, otherwise negative. PHYSICAL EXAMINATION VITAL SIGNS: Temperature 98.1, heart rate 64, blood pressure 165/80, respirations 18, pulse ox 99% on 2 liters. GENERAL: The patient appears well in no acute distress, alert, awake and oriented x3. HEENT: Extraocular muscles intact. Mucous membranes moist. NECK: Supple. No JVD at 45 degrees. No carotid bruits heard bilaterally. Carotid upstroke is brisk in nature. HEART: Regular rate and rhythm. Positive first and second heart sounds with no murmurs, gallops or rubs. LUNGS: Clear to auscultation bilaterally. No wheezes or rales noted. ABDOMEN: Soft, nontender, nondistended. No organomegaly noted. EXTREMITIES: Trace edema bilaterally. No clubbing or cyanosis. NEUROLOGIC: No focal deficits. Cranial nerves II-XII grossly intact. SKIN: Warm, dry and intact. OSTEOPHATIC: No kyphoscoliosis or lordosis. Midline spinal tenderness in the lower back. LABORATORY FINDINGS Hemoglobin 11.1, hematocrit 34.3, platelets 191. Potassium 4.5, BUN 27, creatinine 1.13. IMPRESSION 1. Mechanical fall. 2. L1 vertebral compression fracture 3. Nonischemic cardiomyopathy (ACC/AHA stage C) status post biventricular ICD placement. 4. Essential hypertension 5. History of nonsustained VT (recent interrogation shows one episode of six beat nonsustained VT) 6. Diabetes mellitus type 2. 7. Asthma. RECOMMENDATIONS 1. Tess's fall appears to be mechanical in nature, causing an L1 compression fracture. 2. I have been asked to see her for risk stratification for possible kyphoplasty by Dr. Murrieta in the morning. As she can do greater than 4 METS by doing chores around the house, I would consider her a moderate cardiovascular risk for surgery and may proceed without further testing or procedures. We will attempt to better control her blood pressure preoperatively. 3. Blood pressure may be elevated due to current pain within her back, although it does appear that the last time she was in the family practice office her blood pressure was still elevated at that time. We will attempt to increase her carvedilol to help with her hypertension. Further recommendations will be made during hospital course. Thank you for allowing me to see Tess Davis. If there are any questions, please do not hesitate to call. Hector Jiménez DO VGP/SA /6:02 PM /8:46 PM SIMEON
[2016-09-09] MEDS: SODIUM CHLOR 0.9% 1000 ML INJ 1,000 ML IV SCH (02:08)
[2016-09-09] MEDS: MORPHINE SULFATE 4 MG/ML INJ IV PUSH PRN ×3 (02:08→15:45)
[2016-09-09 03:47] VITALS: BP 152/79; PULSE 85; RESP 19; TEMP 97.6; O2SAT 97
[2016-09-09] MEDS: ISOSORBIDE MONONITRATE 30 MG TAB PO SCH (06:08)
[2016-09-09 08:01] LABS: BICARBONATE 27.2 MEQ/L (21.0-32.0)
[2016-09-09 08:19] VITALS: BP 171/81; PULSE 84; RESP 17; TEMP 98; O2SAT 95
[2016-09-09] MEDS: SODIUM CHLORIDE 0.9% FLUSH 5 ML FLUSH FLUSH SCH (09:00)
[2016-09-09] MEDS: CARVEDILOL 6.25 MG TAB PO SCH (09:00)
[2016-09-09] MEDS: POTASSIUM CHLORIDE 10 MEQ CONTROLLED RELEASE TAB PO SCH (09:00)
[2016-09-09] MEDS: LISINOPRIL 20 MG TAB PO SCH (09:00)
[2016-09-09] MEDS: SPIRONOLACTONE 25 MG TAB PO SCH (09:00)
[2016-09-09] MEDS: FUROSEMIDE 40 MG TAB PO SCH ×2 (09:00→21:47)
[2016-09-09] MEDS: BUDESONIDE-FORMOTEROL 80/4.5 MCG INHALER INH SCH ×2 (09:00→21:47)
[2016-09-09] MEDS: DOCUSATE SODIUM 50 MG/SENNA 8.6 MG TAB PO SCH (09:00)
--- NOTE | 2016-09-09 10:26 | PD.CARD.PN ---
Subjective Subjective Remarks Patient seen earlier this morning, no chest pain, no shortness of breath Does have low back pain Objective Medications Current Medications Medications (Trade) Dose Ordered Sig/Michael Route Start Time Stop Time Status Last Admin (Proair Hfa Inh) 2 puff Q4HR PRN INH 09/07/16 23:30 (Coreg) 6.25 mg BID PO 09/07/16 23:30 09/08/16 21:11 (Lasix) 40 mg BID PO 09/07/16 23:30 09/08/16 09:47 (Imdur) 30 mg DAILY@07 PO 09/08/16 07:00 09/09/16 06:08 (KCl) 10 meq DAILY PO 09/08/16 09:00 09/08/16 09:47 Budesonide/ Formoterol Fumarate 2 puff 2 puff BID INH 09/07/16 23:30 (NS 1000 ml Inj) 1,000 ml @ 65 mls/hr [id number] IV 09/08/16 00:01 09/09/16 02:08 (NS Flush) 2 ml UNSCH PRN FLUSH 09/08/16 00:15 (NS Flush) 2 ml BID FLUSH 09/08/16 00:15 09/08/16 21:11 (Tylenol) 650 mg Q4H PRN PO 09/08/16 00:15 (Zofran Inj) 4 mg Q6H PRN IVP 09/08/16 00:15 (Narcan Inj) 0.4 mg UNSCH PRN IV 09/08/16 00:15 (Morphine Inj) 2 mg Q4HR PRN IV PUSH 09/08/16 00:15 09/09/16 09:41 (Lucrecia-Colace) 2 tab BID PO 09/08/16 09:00 09/08/16 09:48 (Apresoline Inj) 10 mg Q6H PRN IV 09/08/16 01:00 (D50w (Vial) Inj) 25 ml UNSCH PRN IV PUSH 09/08/16 01:00 (Glucagon Inj) 1 mg UNSCH PRN OTHER 09/08/16 01:00 (Prinivil) 20 mg DAILY PO 09/09/16 09:00 (Vasotec Inj) 1.25 mg Q8H PRN IV PUSH 09/08/16 11:00 09/09/16 09:49 ([place] 5-325 Mg) 1 tab Q4H PRN PO 09/08/16 13:45 ([place] 5-325 Mg) 2 tab Q4H PRN PO 09/08/16 13:45 (Aldactone) 25 mg DAILY PO 09/09/16 09:00 Vital Signs / I&O Vital Signs Date Time Temp Pulse Resp B/P Pulse Ox O2 Delivery O2 Flow Rate FiO2 09/09/16 08:19 98.0 84 17 171/81 95 09/09/16 03:47 97.6 85 19 152/79 97 09/09/16 02:33 16 09/08/16 19:08 90 18 152/70 96 I/O 09/08/16 09/08/16 09/08/16 09/09/16 09/09/16 09/09/16 07:00 15:00 23:00 07:00 15:00 23:00 Intake Total 142 ml Balance 142 ml IV Total 142 ml # Voids 1 4 2 Physical Exam GENERAL: NAD, AAOx3 SKIN: Warm and dry. HEAD: Atraumatic. Normocephalic. EYES: Pupils equal and round. No scleral icterus. No injection or drainage. ENT: No nasal bleeding or discharge. Mucous membranes pink and moist. NECK: Trachea midline. No JVD. CARDIOVASCULAR: Regular rate and rhythm. RESPIRATORY: No accessory muscle use. Clear to auscultation. Breath sounds equal bilaterally. GASTROINTESTINAL: Abdomen soft, non-tender, nondistended. Hepatic and splenic margins not palpable. MUSCULOSKELETAL: Extremities without clubbing, cyanosis, or edema. No obvious deformities. NEUROLOGICAL: Awake and alert. No obvious cranial nerve deficits. Motor grossly within normal limits. Five out of 5 muscle strength in the arms and legs. Normal speech. PSYCHIATRIC: Appropriate mood and affect; insight and judgment normal. Laboratory Laboratory Tests Test 09/09/16 07:26 Sodium Level 142 MEQ/L Potassium Level 4.0 MEQ/L Chloride Level 108 MEQ/L Carbon Dioxide Level 27.2 MEQ/L Anion Gap 7 MEQ/L Blood Urea Nitrogen 23 MG/DL Creatinine 1.05 MG/DL Estimat Glomerular Filtration 60 ML/MIN Rate Random Glucose 117 MG/DL Calcium Level 8.5 MG/DL Assessment and Plan Problem List: (1) L1 vertebral fracture (2) Essential hypertension (3) CHF (NYHA class III, ACC/AHA stage C) (4) AICD (automatic cardioverter/defibrillator) present (5) Dyslipidemia Assessment and Plan 1) Moderate cardiovascular risk for a moderate risk surgery, can proceed without further testing or procedures, can do >4 METS 2) Will attempt to better control HTN, may be elevated by pain 3) Will increase Coreg for now Problem Qualifiers (1) L1 vertebral fracture: Qualified Code: S32.019A - Closed fracture of first lumbar vertebra, unspecified fracture morphology, initial encounter Hector Liu DO Sep 09, 2016 10:26
[2016-09-09] MEDS ORDERED: CARVEDILOL 6.25 MG TAB PO ONE (10:30)
--- NOTE | 2016-09-09 10:58 | HHI.FPPN ---
Subjective Remarks Pt seen and examined. No acute events overnight. Reports pain in lumbar spine. No N/V, headache, chest pain, or shortness of breath. Able to lie flat without orthopnea. (Dinora Schneider MD) Objective Vitals Vital Signs Date Time Temp Pulse Resp B/P Pulse Ox O2 Delivery O2 Flow Rate FiO2 09/09/16 08:19 98.0 84 17 171/81 95 09/09/16 03:47 97.6 85 19 152/79 97 09/09/16 02:33 16 09/08/16 19:08 90 18 152/70 96 I/O 09/08/16 09/08/16 09/08/16 09/09/16 09/09/16 09/09/16 07:00 15:00 23:00 07:00 15:00 23:00 Intake Total 142 ml Balance 142 ml IV Total 142 ml # Voids 1 4 2 (Dinora Schneider MD) Result Diagram: 09/08/16 0100 09/09/16 0726 Imaging Pelvis X-Ray 09/08/16 0000 Signed Impressions: Service Date/Time: September 10:16 - CONCLUSION: Unremarkable examination of the pelvis. Jonnathan Crawford MD Thoracic Spine CT 09/07/16 0000 Signed Impressions: Service Date/Time: Wednesday, September 07, 2016 21:02 - CONCLUSION: Acute mild compression fracture of L1. Old compression deformity of T12. No evidence of acute thoracic compression fracture. No evidence of traumatic soft tissue abnormality. Peterson Ludwig MD Lumbar Spine CT 09/07/16 0000 Signed Impressions: Service Date/Time: Wednesday, September 07, 2016 21:04 - CONCLUSION: Acute fracture of the L1 vertebral body as described. Otherwise intact lumbar vertebral bodies. Advanced mid to lower lumbar facet arthropathy. Peterson Ludwig MD Objective Remarks GENERAL: WN, WD female, pleasant, laying flat in bed in NAD. SKIN: Warm and dry without rashes. AICD palpated in left upper chest. HEENT: AT/NC. Arcus senilis bilaterally. Conjunctiva without erythema. EOMI. Oropharynx without erythema or exudate. NECK: Supple, no tender LAD. No JVD or carotid bruits. HEART: RRR with 2/6 ARMIN. 2+ radial pulses. LUNGS: CTAB without crackles or wheezing. No increased respiratory effort. EXTREMITIES: Trace lower extremity edema. No posterior calf tenderness NEURO: Alert. No facial drooping. PSYCH: Appropriate mood and affect. Normal speech. (Dinora Schneider MD) A/P Assessment and Plan 85 year old female with CHF, DM, COPD, and HTN was admitted on 09/07/16 for L1 compression fracture secondary to a mechanical fall. Neurosurgery consulted and planning for kyphoplasty this afternoon. Discharge Planning Anticipate D/C tomorrow if stable. Case management assisting wtih D/C needs; PT recommending rehab. (Dinora Schneider MD) Attending Attestation Patient seen and examined. Case reviewed and discussed with the resident team. Agree with plan of care as discussed with me and documented in the resident note. (Shannan Baugh MD) Problem List: (1) L1 vertebral fracture Status: Acute Plan: L1 compression fracture after mechanical fall. Impaired balance at baseline secondary to R knee pain/arthritis and patient ambulates with cane. PT recommending rehab on discharge. - Neurosurgery consulted; planning for kyphoplasty this afternoon - Cardiology deems appropriate to proceed with surgery - Pain control with [place] 5/325 mg 1-2 tabs PRN and morphine 2 mg Q4H IV PRN breakthrough (2) CHF (NYHA class III, ACC/AHA stage C) Status: Chronic Plan: Patient with biventricular AICD in place. - Echo with EF 20-30% - Start spironolactone 25 mg PO daily - Increased Lisinopril to 20 mg PO daily and carvedilol to 12.5 mg PO BID in light of elevated pressures - Continue home Lasix 40 mg PO BID and KCl - Continue home Imdur 30 mg PO daily - Holding home baby aspirin in anticipation of surgery (3) Essential hypertension Status: Chronic Plan: BPs elevated. - Lisinopril increased to 20 mg PO daily - Carvedilol increased to 12.5 mg PO BID - Hydralazine PRN (4) Diabetes mellitus type 2 Status: Chronic Plan: Well-controlled. A1C January 2016 5.8. - Hold home metformin - Hold off on SSI since A1c so low (5) Asthma Status: Chronic Plan: Stable. Maintaining adequate oxygenation. Continue Symbicort and albuterol PRN. (6) Fluids, Electrolytes, Nutrition, Prophylaxis Status: Acute Plan: - Fluids: NS at 65 ml/hr since NPO - Electrolytes: WNL - Nutrition: NPO in anticipation of surgery dw Dr. Baugh (Dinora Schneider MD) Problem Qualifiers (1) L1 vertebral fracture: Qualified Code: S32.019A - Closed fracture of first lumbar vertebra, unspecified fracture morphology, initial encounter (2) Asthma: Qualified Code: J45.20 - Mild intermittent asthma without complication Dinora Schneider MD Sep 09, 2016 10:58 Shannan Baugh MD Sep 14, 2016 12:22
[2016-09-09 11:25] VITALS: BP 169/76; PULSE 79; RESP 18; TEMP 97.9; O2SAT 95
[2016-09-09] MEDS ORDERED: ePHEDrine/NS 25 MG/5 ML SYR IV ONE (12:00)
[2016-09-09] MEDS ORDERED: ONDANSETRON HCL 4 MG/2 ML VIAL IV PUSH ONE (12:00)
[2016-09-09] MEDS ORDERED: PROPOFOL 200 MG/20 ML AMP IV ONE (12:00)
[2016-09-09] MEDS ORDERED: PHENYLEPH/NS 1000 MCG/10 ML SYR IV ONE (12:00)
--- NOTE | 2016-09-09 13:39 | OTSOAPIP ---
TIME SESSION COMPLETED: PM TREATMENT TIME: 0 MINS. CHART REVIEWED. SPOKE WITH RN SAMI, PATIENT IS TO HAVE KYPHOPLASTY THIS AFTERNOON. WILL HOLD AND FOLLOW UP WITH PATIENT POST SURGERY FOR EVALUATION. INTERDISCIPLINARY COMMUNICATION: REVIEWED ELECTRONIC MEDICAL RECORD, SPOKE WITH RN Therapist: Bettie Zimmerman, OTR/L Signature on file
[2016-09-09] MEDS: ceFAZolin 2 GM PREMIX 50 ML IV SCH ×3 (14:38→21:47)
[2016-09-09] MEDS: VANCOMYCIN INJ 1,000 MG in SODIUM CHLOR 0.9% 250 ML INJ 250 ML IV SCH ×2 (14:39→15:05)
[2016-09-09] MEDS ORDERED: DO NOT ADM ANY ANTICOAGULANT DRUGS XX PRN (16:10)
[2016-09-09] MEDS ORDERED: BUPIVACAINE/EPINEPHRINE 0.5% PF 30 ML VIAL ONE (16:26)
[2016-09-09] MEDS ORDERED: ACETAMINOPHEN 1000 MG/100 ML VIAL IV ONE (16:32)
[2016-09-09] MEDS ORDERED: ARTIFICIAL TEARS OPTH OINT 3.5 APPLIC/3.5 GM TUBO ONE (16:32)
[2016-09-09] MEDS ORDERED: BUPIVACAINE/EPINEPHRINE 0.5% PF 30 ML VIAL INFIL ONE (17:23)
[2016-09-09] MEDS ORDERED: IOHEXOL 350 MG/ML 10 ML VIAL (for RAD DIAG) ONE (17:23)
[2016-09-09] MEDS ORDERED: SUGAMMADEX SODIUM 200 MG/2 ML VIAL IV PUSH ONE ×2 (17:42)
[2016-09-09] MEDS ORDERED: MIDAZOLAM HCL 2 MG/2 ML VIAL ONE (17:47)
[2016-09-09] MEDS ORDERED: NS + KCL 20 MEQ INJ 1,000 ML IV SCH (18:01)
--- NOTE | 2016-09-09 18:04 | PD.OP ---
Operative Report Date of Surgery: Sep 09, 2016 Preoperative Diagnosis: T12, L1 compression fracture Postoperative Diagnosis: T12, L1 compression fracture Procedure: T12, L1 kyphoplasty Anesthesia: general Surgeon: Kelvin Murrieta Information Assistant(s): MAEGAN Resident Surgeon: INDICATIONS FOR THE PROCEDURE Ms Davis is a 85 year-old female who presented with intractable pain related to a compression fracture of T12 and L1. The patient has failed nonsurgical management and a kyphoplasty was indicated as the most appropriate form of treatment. The [id number] details of the procedure, indications, alternatives, risks and potential complications were fully discussed with the patient. The patient fully understood. All The questions were answered. No guarantees were given. The patient voiced requesting the procedure and provided informed consents. The patient was offered the alternative of delaying the procedure and continuing with nonsurgical management. DETAILS OF THE SURGICAL PROCEDURE The patient was brought to the operating room and after the induction of general anesthesia, endotracheal intubation was performed. A Knight catheter and bilateral MIKE hose and sequential compression devices were placed and kept throughout the procedure. The patient was positioned prone on the Jeremias table over gel rods. All pressure points were carefully padded with egg crate mattress. The eyes were tapped shut after ointment was applied by the anesthesiologist to prevent corneal abrasion. A Monie hugger was placed over the exposed lower body to maintain control of the core body temperature. The lumbar region was prepped and draped in the usual sterile fashion. The C-arms were brought to the field and simultaneous AP and lateral x-rays were obtained. The levels were carefully counted and the pedicles were marked over the skin. An entry point was selected 1 centimeter superior and 1 centimeter lateral to the pedicle of L1. Two small incisions were outlined on the skin and infiltrated with 1% lidocaine with epinephrine in 1:100,000 dilution. Initially, two small skin incisions were made with a #11 blade. Then, Jamshidi needles were carefully advanced to the entrance of the pedicle, and then into the vertebral body under continuous fluoroscopic guidance. K-wires were placed inside the vertebral body of and the needles were carefully removed. A drill was used to create a trough into the vertebral body to insert a cannula. Once the cannula was located through the pedicle, the drill was removed and bilateral balloons were inserted into the T11 vertebral body. A careful expansion of the balloon under continuous fluoroscopic guidance and manometric evaluation allowed expansion of the vertebral body. Then, the procedure was repeated in the same fashion at T12, the next symptomatic level. The skin incisions were made with a #11 blade. Then, Jamshidi needles were carefully advanced to the entrance of the pedicle, and then into the vertebral body under continuous fluoroscopic guidance. The needles were advanced. The K-wire was advanced inside the vertebral body of L1 and the needles were carefully removed. A drill was used to create a trough into the vertebral body and to insert a cannula. Once the cannula was located through the pedicle, the drill was removed and bilateral balloons were inserted into the vertebral body for vertebral augmentation. A careful expansion of the balloon under continuous fluoroscopic guidance and manometric evaluation allowed expansion of the vertebral body. Then, the balloons were deflated and carefully removed and the voids created in the vertebral bodies were filled with bone cement. A very good expansion of the vertebral bodies was achieved without evidence of extravasation or cement or other complications. The cannulas were then removed. The incisions were closed using a single stitch at each incision. Dermabond was applied to the skin. At the end of the procedure, the sponge, needle, instrument counts correct. The estimated blood loss as minimal. No intraoperative complications occurred. The patient received prophylactic antibiotics. The patient was then extubated and transferred to the recovery room in stable condition. Kelvin Murrieta MD Sep 09, 2016 18:04
[2016-09-09] MEDS ORDERED: SODIUM CHLORIDE 0.9% FLUSH 5 ML FLUSH IVF PRN (18:15)
[2016-09-09] MEDS ORDERED: ACETAMINOPHEN/HYDROcodone 325 MG/10 MG TAB PO PRN (18:15)
[2016-09-09] MEDS ORDERED: MORPHINE SULFATE 4 MG/ML INJ IV PUSH PRN ×2 (18:15)
[2016-09-09] MEDS ORDERED: *morphine SULFATE 8 MG/ML PERIprocedure ONLY ONE (18:18)
[2016-09-09] MEDS ORDERED: *RESP: ALBUTEROL 2.5 MG/3 ML NEB (PRN) PERIprocedural Use ONLY NEB ONE (18:20)
--- NOTE | 2016-09-09 19:42 | RADRPT ---
EXAM DATE/TIME: 09/09/2016 17:54 [facility] COMPARISON: CT LUMBAR SPINE W/O CONTRAST, September 07, 2016, 21:04. INDICATIONS : Kyphoplasty T12 and L1. MEDICAL HISTORY : Hypertension. Cardiovascular disease. Cerebrovascular disease. Compression deformities identifie d of T12, L1. SURGICAL HISTORY : None. ENCOUNTER: Subsequent ACUITY: 3 days PAIN SCORE: Non-responsive. LOCATION: Thoracolumbar, FINDINGS: AP and lateral views of the thoracolumbar region demonstrates radiopaque bone cement in the T12 and L 1 vertebral bodies following augmentation. CONCLUSION: Status post augmentation of the T12 and L1 vertebral bodies. Peterson Ludwig MD on September 09, 2016 at 19:37 Board Certified Radiologist. This report was verified electronically.
[2016-09-09 21:07] VITALS: BP 181/85; PULSE 89; RESP 22; TEMP 98.6; O2SAT 92
[2016-09-09] MEDS: DOCUSATE SODIUM 100 MG CAP PO SCH (21:47)
[2016-09-09] MEDS: CARVEDILOL 12.5 MG TAB PO SCH (21:47)
[2016-09-09] MEDS: SODIUM CHLORIDE 0.9% FLUSH 5 ML FLUSH IVF SCH (21:48)
[2016-09-10] VITALS (8 sets, daily range): BP systolic 128–154; BP diastolic 63–88; PULSE 64–82; RESP 18; TEMP 96.4–98.8; O2SAT 94–98
[2016-09-10] MEDS: ceFAZolin 2 GM PREMIX 50 ML IV SCH ×2 (05:29→14:00)
[2016-09-10] MEDS: ISOSORBIDE MONONITRATE 30 MG TAB PO SCH (05:29)
--- NOTE | 2016-09-10 07:34 | HHI.FPPN ---
Subjective Remarks Pt seen and examined this morning. AFVSS. No acute events overnight. Reports she is feeling well and has no complaints. Denies pain anywhere. States she is able to roll around and change positions in bed without discomfort. Denies CP, SOB, abdominal pain, N/V. Wants to eat. Feels ready to go. Agreeable to going to a rehab/SNF. (Dinora Schneider MD) Objective Vitals Vital Signs Date Time Temp Pulse Resp B/P Pulse Ox O2 Delivery O2 Flow Rate FiO2 09/10/16 05:34 97.8 80 18 145/63 95 09/10/16 01:02 96.4 82 18 141/68 96 09/09/16 21:07 98.6 89 22 181/85 92 09/09/16 19:45 98.6 18 155/86 94 Nasal Cannula 3 09/09/16 19:30 78 18 160/82 92 Nasal Cannula 3 09/09/16 19:15 89 17 165/77 94 Nasal Cannula 3 09/09/16 18:45 77 173/86 100 Nasal Cannula 2 09/09/16 18:31 84 170/88 99 Nasal Cannula 2 09/09/16 18:10 97.7 94 20 186/92 95 Nasal Cannula 2 09/09/16 16:01 09/09/16 11:25 97.9 79 18 169/76 95 09/09/16 08:19 98.0 84 17 171/81 95 I/O 09/09/16 09/09/16 09/09/16 09/10/16 09/10/16 09/10/16 07:00 15:00 23:00 07:00 15:00 23:00 Intake Total 802 ml 700 ml Output Total 10 ml Balance 802 ml 690 ml Intake Oral 0 ml IV Total 802 ml Other 700 ml Output Estimated Blood Loss 10 ml # Voids 2 1 # Bowel Movements 0 (Dinora Schneider MD) Result Diagram: 09/08/16 0100 09/09/16 0726 Objective Remarks GENERAL: WN, WD female, pleasant, laying comfortably in bed in NAD. SKIN: Warm and dry without rashes. AICD palpated in left upper chest. HEENT: AT/NC. Arcus senilis bilaterally. Conjunctiva without erythema. EOMI. Oropharynx without erythema or exudate. Edentulous. HEART: RRR with 2/6 ARMIN. 2+ radial pulses. LUNGS: CTAB without crackles or wheezing. No increased respiratory effort. EXTREMITIES: Trace lower extremity edema. No posterior calf tenderness. SCDs in place. BACK: Two bandages over low back with no surrounding tenderness, erythema, or warmth. NEURO: Awake and alert. No facial drooping. PSYCH: Appropriate mood and affect. Normal speech. (Dinora Schneider MD) A/P Assessment and Plan 85 year old female with CHF, DM, COPD, and HTN was admitted on 09/07/16 for L1 compression fracture secondary to a mechanical fall. Neurosurgery consulted and patient underwent kyphoplasty yesterday. Her pain is well- controlled and she is stable for discharge. Discharge Planning D/C today if cleared by neurosurgery. Case management assisting with D/C needs; PT recommending rehab. (Dinora Schneider MD) Attending Attestation Patient seen and examined. Case reviewed and discussed with the resident team. Agree with plan of care as discussed with me and documented in the resident note. (Shannan Baugh MD) Problem List: (1) Compression fracture of L1 lumbar vertebra Status: Acute Plan: Patient sustained T12/L1 compression fracture after a mechanical fall at home. - POD1 s/p T12/L1 kyphoplasty; appreciate neurosurgical intervention - Pain control with [place] 5/325 mg 1-2 tabs PRN - PT recommending rehab on discharge (2) Compression fracture of T12 vertebra Status: Acute Plan: See plans above. (3) CHF (NYHA class III, ACC/AHA stage C) Status: Chronic Plan: Patient with biventricular AICD in place. - Echo with EF 20-30% - Spironolactone 25 mg PO daily - Lisinopril 20 mg PO daily - Itgytyhpmx20.5 mg PO BID - Continue home Lasix 40 mg PO BID and KCl - Continue home Imdur 30 mg PO daily (4) Essential hypertension Status: Chronic Plan: BPs improving. - Lisinopril increased to 20 mg PO daily - Carvedilol increased to 12.5 mg PO BID - Hydralazine PRN (5) Diabetes mellitus type 2 Status: Chronic Plan: Well-controlled. A1C January 2016 5.8. - Hold home metformin - Hold off on SSI since A1c so low (6) Asthma Status: Chronic Plan: Stable. Maintaining adequate oxygenation. Continue Symbicort and albuterol PRN. (7) Fluids, Electrolytes, Nutrition, Prophylaxis Status: Acute Plan: - Fluids: Tolerating PO - Electrolytes: WNL - Nutrition: Heart healthy diet dw Dr. Baugh (Dinora Schneider MD) Problem Qualifiers (1) Asthma: Qualified Code: J45.20 - Mild intermittent asthma without complication Dinora Schneider MD Sep 10, 2016 07:34 Shannan Baugh MD Sep 14, 2016 12:23
[2016-09-10 08:15] LABS: AUTOMATED NEUTROPHIL # 8.4 TH/MM3 (1.8-7.7); BASOPHIL % 0.2 % (0.0-2.0); EOSINOPHIL % 0.2 % (0.0-4.0); HEMATOCRIT 33.3 % (35.0-46.0); HEMO FLAGS DIFF FINAL; LYMPH % 6.1 % (9.0-44.0); LYMPHOCYTE # 0.6 TH/MM3 (1.0-4.8); MEAN CELL VOLUME 82.8 FL (80.0-100.0); MEAN CORPUSCULAR HEMOGLOBIN 26.9 PG (27.0-34.0); MEAN CORPUSCULAR HGB CONC 32.5 % (32.0-36.0); MONO % 8.4 % (0.0-8.0); NEUT % 85.1 % (16.0-70.0); PLATELET COUNT 145 TH/MM3 (150-450); RED BLOOD COUNT 4.02 MIL/MM3 (4.00-5.30); RED CELL DISTRIBUTION WIDTH 13.9 % (11.6-17.2); WHITE BLOOD COUNT 9.8 TH/MM3 (4.0-11.0)
[2016-09-10] MEDS ORDERED: VENTAER INH (08:16)
[2016-09-10] MEDS ORDERED: CARV12.5 PO (08:16)
[2016-09-10] MEDS ORDERED: SYMB80AE INH (08:16)
[2016-09-10] MEDS ORDERED: HYDR-3583 PO (08:16)
[2016-09-10] MEDS ORDERED: LISI-515 PO (08:17)
[2016-09-10] MEDS ORDERED: Spironolactone PO (08:17)
--- NOTE | 2016-09-10 08:17 | HHI.DCPOC ---
Discharge Care Plan Diagnosis: (1) L1 vertebral fracture Goals to Promote Your Health * To prevent worsening of your condition and complications * To maintain your health at the optimal level Directions to Meet Your Goals Take your medications as prescribed Follow your dietary instruction Follow activity as directed Keep your appointments as scheduled Take your immunizations and boosters as scheduled If your symptoms worsen call your PCP, if no PCP go to Urgent Care Center or Emergency Room Smoking is Dangerous to Your Health. Avoid second hand smoke Call the 24-hour hour crisis hotline for domestic abuse at Dinora Schneider MD Sep 10, 2016 08:17
[2016-09-10] MEDS: LISINOPRIL 20 MG TAB PO SCH (08:42)
[2016-09-10] MEDS: FUROSEMIDE 40 MG TAB PO SCH ×2 (08:42→21:54)
[2016-09-10] MEDS: SPIRONOLACTONE 25 MG TAB PO SCH (08:42)
[2016-09-10] MEDS: CARVEDILOL 12.5 MG TAB PO SCH ×2 (08:43→21:54)
[2016-09-10] MEDS: DOCUSATE SODIUM 100 MG CAP PO SCH ×2 (08:43→21:54)
[2016-09-10] MEDS: POTASSIUM CHLORIDE 10 MEQ CONTROLLED RELEASE TAB PO SCH (08:43)
[2016-09-10] MEDS: PANTOPRAZOLE SOD 40 MG DELAYED RELEASE TAB PO SCH (08:43)
[2016-09-10] MEDS: BUDESONIDE-FORMOTEROL 80/4.5 MCG INHALER INH SCH ×2 (08:45→21:55)
[2016-09-10] MEDS: SODIUM CHLORIDE 0.9% FLUSH 5 ML FLUSH IVF SCH ×2 (09:00→21:00)
--- NOTE | 2016-09-10 19:11 | EKG ---
Date Performed: 09/09/2016 Time Performed: 15:07:16 PTAGE: 85 years EKG: ELECTRONIC VENTRICULAR PACEMAKER Since previous tracing, no significant change noted ABNORM AL RHYTHM ECG PREVIOUS TRACING : 05/19/2014 08.44 DOCTOR: Lazarus Zamora Interpretating Date/Time 09/10/2016 19:10:45
--- NOTE | 2016-09-10 20:10 | HHI.NSPN ---
History Chief Complaint: back pain Interval History 85-year-old female who recently fell landing against a wall onto her buttocks. Sustained T12-L1 compression fractures. 09/09/16: T12-L1 kyphoplasty 09/10/16: Patient states pain much improved. Able to sit up in a chair and ambulate without significant pain today. Exam Results Vital Signs Date Time Temp Pulse Resp B/P Pulse Ox O2 Delivery O2 Flow Rate FiO2 09/10/16 18:14 98 Nasal Cannula 3.00 09/10/16 16:00 98.6 74 18 154/74 Intake and Output 09/09/16 09/09/16 09/10/16 08:00 16:00 00:00 Intake Total 802 ml 700 ml Output Total 10 ml Balance 802 ml 690 ml Physical Examination Lying in bed Awake and alert Speech is clear and appropriate Follow simple commands well Complains of right knee discomfort with range of motion-chronic Mild tenderness thoracolumbar midline Sensation intact by touch lower extremities Strength 5/5 in all major flexion and extension groups in the lower extremities Lab, Micro, Other Results Laboratory Tests Test 09/10/16 07:00 White Blood Count 9.8 TH/MM3 Red Blood Count 4.02 MIL/MM3 Hemoglobin 10.8 GM/DL Hematocrit 33.3 % Mean Corpuscular Volume 82.8 FL Mean Corpuscular Hemoglobin 26.9 PG Mean Corpuscular Hemoglobin 32.5 % Concent Red Cell Distribution Width 13.9 % Platelet Count 145 TH/MM3 Mean Platelet Volume 9.3 FL Neutrophils (%) (Auto) 85.1 % Lymphocytes (%) (Auto) 6.1 % Monocytes (%) (Auto) 8.4 % Eosinophils (%) (Auto) 0.2 % Basophils (%) (Auto) 0.2 % Neutrophils # (Auto) 8.4 TH/MM3 Lymphocytes # (Auto) 0.6 TH/MM3 Monocytes # (Auto) 0.8 TH/MM3 Eosinophils # (Auto) 0.0 TH/MM3 Basophils # (Auto) 0.0 TH/MM3 CBC Comment DIFF FINAL Differential Comment Medical Decision Making Impression and Plan Impression: 1. Doing well following T12-L1 kyphoplasty. Pain improved today. Mobilizing out of bed without significant pain according to patient. Plan: Discussed with patient TLSO brace is in room. Activity precautions and use of brace discussed with the patient. She is stable for discharge from neurosurgery standpoint My follow-up outpatient with Dr. lGenny Domingo,Dario Smiley MD Sep 10, 2016 20:10
[2016-09-11] VITALS (8 sets, daily range): BP systolic 108–190; BP diastolic 54–90; PULSE 66–81; RESP 18–20; TEMP 97.2–99.4; O2SAT 92–97
[2016-09-11] MEDS: ACETAMINOPHEN 325 MG TAB PO PRN (06:33)
[2016-09-11] MEDS: ISOSORBIDE MONONITRATE 30 MG TAB PO SCH (06:33)
--- NOTE | 2016-09-11 08:01 | HHI.FPPN ---
Subjective Remarks Pt seen and examined this morning. AFVSS. No acute events overnight. Patient denies any pain and has been able to mobilize without discomfort. Appetite is down and she is not eating much because she doesn't like the taste of the food. Denies CP, SOB, abdominal pain, N/V. Hasn't had a BM in two days but reports this is normal for her and she doesn't feel backed up. (Dinora Schneider MD) Objective Vitals Vital Signs Date Time Temp Pulse Resp B/P Pulse Ox O2 Delivery O2 Flow Rate FiO2 09/11/16 04:40 97.3 66 18 108/54 95 09/11/16 00:31 97.2 79 20 189/81 95 09/10/16 20:45 95 Nasal Cannula 3.00 09/10/16 20:44 98.8 76 18 128/73 94 09/10/16 18:14 98 Nasal Cannula 3.00 09/10/16 16:00 98.6 74 18 154/74 97 09/10/16 12:00 97.9 64 18 152/73 98 I/O 09/10/16 09/10/16 09/10/16 09/11/16 09/11/16 09/11/16 07:00 15:00 23:00 07:00 15:00 23:00 Intake Total 480 ml Output Total 250 ml Balance 480 ml -250 ml Intake Oral 480 ml Output Urine Total 250 ml # Voids 1 4 5 # Bowel Movements 0 0 2 (Dinora Schneider MD) Result Diagram: 09/10/16 0700 09/09/16 0726 Objective Remarks GENERAL: WN, WD female, pleasant, laying comfortably in bed in NAD. SKIN: Warm and dry without rashes. AICD palpated in left upper chest. HEENT: AT/NC. Arcus senilis bilaterally. Conjunctiva without erythema. EOMI. Oropharynx without erythema or exudate. Edentulous. HEART: RRR with 2/6 ARMIN. 2+ radial pulses. LUNGS: CTAB without crackles or wheezing. No increased respiratory effort. EXTREMITIES: Trace lower extremity edema. No posterior calf tenderness. SCDs in place. BACK: Two bandages over low back with no surrounding tenderness, erythema, or warmth. NEURO: Awake and alert. No facial drooping. PSYCH: Appropriate mood and affect. Normal speech. (Dinora Schneider MD) A/P Assessment and Plan 85 year old female with CHF, DM, COPD, and HTN was admitted on 09/07/16 for L1 compression fracture secondary to a mechanical fall. Neurosurgery consulted and patient underwent kyphoplasty on 09/09. Her pain is well-controlled and she is stable for discharge. PT recommending SNF; case management assisting with D/C needs. Discharge Planning Cleared for discharge but since patient needs SNF placement, may not be discharged until tomorrow per case management. (Dinora Schneider MD) Attending Attestation Patient seen and examined. Case reviewed and discussed with the resident team. Agree with plan of care as discussed with me and documented in the resident note. (Shannan Baugh MD) Problem List: (1) Compression fracture of L1 lumbar vertebra Status: Acute Plan: Patient sustained T12/L1 compression fracture after a mechanical fall at home. - POD2 s/p T12/L1 kyphoplasty; appreciate neurosurgical intervention - Pain control with [place] 5/325 mg 1-2 tabs PRN - PT recommending rehab/SNF on discharge (2) Compression fracture of T12 vertebra Status: Acute Plan: See plans above. (3) CHF (NYHA class III, ACC/AHA stage C) Status: Chronic Plan: Patient with biventricular AICD in place. - Echo with EF 20-30% - Spironolactone 25 mg PO daily - Lisinopril 20 mg PO daily - Gavozrasoi79.5 mg PO BID - Continue home Lasix 40 mg PO BID and KCl - Continue home Imdur 30 mg PO daily (4) Essential hypertension Status: Chronic Plan: BPs a little bit labile. - Lisinopril 20 mg PO daily - Carvedilol 12.5 mg PO BID - Hydralazine PRN (5) Diabetes mellitus type 2 Status: Chronic Plan: Well-controlled. A1C January 2016 5.8. - Hold home metformin - Hold off on SSI since A1c so low (6) Asthma Status: Chronic Plan: Stable. Maintaining adequate oxygenation. Continue Symbicort and albuterol PRN. (7) Fluids, Electrolytes, Nutrition, Prophylaxis Status: Acute Plan: - Fluids: Tolerating PO - Electrolytes: WNL - Nutrition: Regular diet dw Dr. Baugh (Dinora Schneider MD) Problem Qualifiers (1) Asthma: Qualified Code: J45.20 - Mild intermittent asthma without complication Dinora Schneider MD Sep 11, 2016 08:01 Shannan Baugh MD Sep 14, 2016 12:23
[2016-09-11] MEDS: POTASSIUM CHLORIDE 10 MEQ CONTROLLED RELEASE TAB PO SCH (09:00)
[2016-09-11] MEDS: SODIUM CHLORIDE 0.9% FLUSH 5 ML FLUSH IVF SCH ×2 (09:00→21:00)
[2016-09-11] MEDS: FUROSEMIDE 40 MG TAB PO SCH ×2 (09:00→21:00)
[2016-09-11] MEDS: LISINOPRIL 20 MG TAB PO SCH (10:05)
[2016-09-11] MEDS: DOCUSATE SODIUM 100 MG CAP PO SCH ×2 (10:05→22:17)
[2016-09-11] MEDS: PANTOPRAZOLE SOD 40 MG DELAYED RELEASE TAB PO SCH (10:06)
[2016-09-11] MEDS: CARVEDILOL 12.5 MG TAB PO SCH ×2 (10:06→22:17)
[2016-09-11] MEDS: SPIRONOLACTONE 25 MG TAB PO SCH (10:07)
[2016-09-11] MEDS: BUDESONIDE-FORMOTEROL 80/4.5 MCG INHALER INH SCH ×2 (10:09→22:17)
[2016-09-11 13:03] LABS: BICARBONATE 30.8 MEQ/L (21.0-32.0); POTASSIUM 3.7 MEQ/L (3.5-5.1)
[2016-09-11] MEDS: ENOXAPARIN SODIUM 40 MG/0.4 ML SYRINGE SQ SCH (13:55)
--- NOTE | 2016-09-11 19:24 | HHI.NSPN ---
History Chief Complaint: back pain Interval History 85-year-old female who recently fell landing against a wall onto her buttocks. Sustained T12-L1 compression fractures. 09/09/16: T12-L1 kyphoplasty 09/10/16: Patient states pain much improved. Able to sit up in a chair and ambulate without significant pain today. Exam Results Vital Signs Date Time Temp Pulse Resp B/P Pulse Ox O2 Delivery O2 Flow Rate FiO2 09/11/16 12:00 98.6 80 18 146/76 92 09/11/16 08:44 21 09/10/16 20:45 Nasal Cannula 3.00 Intake and Output 09/10/16 09/10/16 09/11/16 08:00 16:00 00:00 Intake Total 480 ml Balance 480 ml Physical Examination Lying in bed Friends in the room with the patient Awake and alert Speech is clear and appropriate Follow simple commands well Complains of right knee discomfort with range of motion-chronic Mild tenderness thoracolumbar midline Sensation intact by touch lower extremities Strength 5/5 in all major flexion and extension groups in the lower extremities Lab, Micro, Other Results Laboratory Tests Test 09/11/16 12:00 Sodium Level 143 MEQ/L Potassium Level 3.7 MEQ/L Chloride Level 105 MEQ/L Carbon Dioxide Level 30.8 MEQ/L Anion Gap 7 MEQ/L Blood Urea Nitrogen 26 MG/DL Creatinine 1.01 MG/DL Estimat Glomerular Filtration 63 ML/MIN Rate Random Glucose 92 MG/DL Calcium Level 8.5 MG/DL Medical Decision Making Impression and Plan Impression: 1. Doing well following T12-L1 kyphoplasty. Pain continues to improve today. Mobilizing out of bed without significant pain according to patient. Plan: Discussed with patient again today TLSO brace when out of bed Activity precautions and use of brace discussed with the patient. She is stable for discharge from neurosurgery standpoint My follow-up outpatient with Dr. Glenny Domingo,Dario Smiley MD Sep 11, 2016 19:24
[2016-09-12] MEDS: ACETAMINOPHEN 325 MG TAB PO PRN (00:51)
[2016-09-12] MEDS: ISOSORBIDE MONONITRATE 30 MG TAB PO SCH (06:13)
[2016-09-12 08:00] VITALS: BP 175/86; PULSE 71; RESP 18; TEMP 98.4; O2SAT 95
--- NOTE | 2016-09-12 08:36 | HHI.FPPN ---
Subjective Remarks Pt seen and examined this morning. AFVSS. No acute events overnight. Denies any pain in her back; getting up and sitting in the chair without pain or issues. Appetite better; no abdominal pain, N/V. Feels ready for discharge. Denies CP or SOB. (Dinora Schneider MD) Objective Vitals Vital Signs Date Time Temp Pulse Resp B/P Pulse Ox O2 Delivery O2 Flow Rate FiO2 09/11/16 23:15 98.8 81 18 146/63 97 09/11/16 20:05 99.4 77 18 163/84 97 09/11/16 16:00 98.2 69 18 190/90 95 09/11/16 12:00 98.6 80 18 146/76 92 09/11/16 08:44 94 21 I/O 09/11/16 09/11/16 09/11/16 09/12/16 09/12/16 09/12/16 07:00 15:00 23:00 07:00 15:00 23:00 Intake Total 1080 ml 240 ml Output Total 250 ml Balance -250 ml 1080 ml 240 ml Intake Oral 1080 ml 240 ml Output Urine Total 250 ml # Voids 5 6 1 # Bowel Movements 2 0 0 (Dinora Schneider MD) Result Diagram: 09/10/16 0700 09/11/16 1200 Objective Remarks GENERAL: WN, WD female, pleasant, laying comfortably in bed in NAD. SKIN: Warm and dry without rashes. AICD palpated in left upper chest. HEENT: AT/NC. Arcus senilis bilaterally. Conjunctiva without erythema. EOMI. Oropharynx without erythema or exudate. Edentulous. HEART: RRR with 2/6 ARMIN. 2+ radial pulses. LUNGS: CTAB without crackles or wheezing. No increased respiratory effort. EXTREMITIES: Trace lower extremity edema. No posterior calf tenderness. SCDs in place. BACK: Two bandages over low back with no surrounding tenderness, erythema, or warmth. NEURO: Awake and alert. No facial drooping. PSYCH: Appropriate mood and affect. Normal speech. (Dinora Schneider MD) A/P Assessment and Plan 85 year old female with CHF, DM, COPD, and HTN was admitted on 09/07/16 for L1 compression fracture secondary to a mechanical fall. Neurosurgery consulted and patient underwent kyphoplasty on 09/09. Her pain is well-controlled and she is stable for discharge. PT recommending SNF; case management assisting with D/C needs. Discharge Planning Hopefully discharge today; patient has been clear for discharge since 09/10 but needs insurance authorization for SNF. (Dinora Schneider MD) Attending Attestation Patient seen and examined. Case reviewed and discussed with the resident team. Agree with plan of care as discussed with me and documented in the resident note. (Shannan Baugh MD) Problem List: (1) Compression fracture of L1 lumbar vertebra Status: Acute Plan: Patient sustained T12/L1 compression fracture after a mechanical fall at home. - POD2 s/p T12/L1 kyphoplasty; appreciate neurosurgical intervention - Pain control with [place] 5/325 mg 1-2 tabs PRN - PT recommending rehab/SNF on discharge (2) Compression fracture of T12 vertebra Status: Acute Plan: See plans above. (3) CHF (NYHA class III, ACC/AHA stage C) Status: Chronic Plan: Patient with biventricular AICD in place. - Echo with EF 20-30% - Spironolactone 25 mg PO daily (started in the hospital; potassium WNL) - Lisinopril 20 mg PO daily - Carvedilol 12.5 mg PO BID - Continue home Lasix 40 mg PO BID and KCl - Continue home Imdur 30 mg PO daily (4) Essential hypertension Status: Chronic Plan: BPs a little bit labile. - Lisinopril 20 mg PO daily - Carvedilol 12.5 mg PO BID - Hydralazine PRN (5) Diabetes mellitus type 2 Status: Chronic Plan: Well-controlled. A1C January 2016 5.8. - Hold home metformin - Hold off on SSI since A1c so low (6) Asthma Status: Chronic Plan: Stable. Maintaining adequate oxygenation. Continue Symbicort and albuterol PRN. (7) Fluids, Electrolytes, Nutrition, Prophylaxis Status: Acute Plan: - Fluids: Tolerating PO - Electrolytes: WNL - Nutrition: Regular diet dw Dr. Baugh (Dinora Schneider MD) Problem Qualifiers (1) Asthma: Qualified Code: J45.20 - Mild intermittent asthma without complication Dinora Schneider MD Sep 12, 2016 08:36 Shannan Baugh MD Sep 14, 2016 12:24
[2016-09-12] MEDS: SPIRONOLACTONE 25 MG TAB PO SCH (10:26)
[2016-09-12] MEDS: LISINOPRIL 20 MG TAB PO SCH (10:26)
[2016-09-12] MEDS: POTASSIUM CHLORIDE 10 MEQ CONTROLLED RELEASE TAB PO SCH (10:26)
[2016-09-12] MEDS: DOCUSATE SODIUM 100 MG CAP PO SCH ×3 (10:26→21:00)
[2016-09-12] MEDS: FUROSEMIDE 40 MG TAB PO SCH ×3 (10:27→21:00)
[2016-09-12] MEDS: ACETAMINOPHEN/HYDROcodone 325 MG/10 MG TAB PO PRN ×3 (10:27→22:14)
[2016-09-12] MEDS: CARVEDILOL 12.5 MG TAB PO SCH ×2 (10:27→22:15)
[2016-09-12] MEDS: PANTOPRAZOLE SOD 40 MG DELAYED RELEASE TAB PO SCH (10:27)
[2016-09-12] MEDS: BUDESONIDE-FORMOTEROL 80/4.5 MCG INHALER INH SCH ×2 (10:28→22:18)
[2016-09-12] MEDS: SODIUM CHLORIDE 0.9% FLUSH 5 ML FLUSH IVF SCH ×3 (10:28→21:00)
[2016-09-12 12:00] VITALS: BP 153/77; PULSE 74; RESP 18; TEMP 97.5; O2SAT 97
[2016-09-12] MEDS: ENOXAPARIN SODIUM 40 MG/0.4 ML SYRINGE SQ SCH (13:41)
[2016-09-12 16:00] VITALS: BP 136/70; PULSE 60; RESP 17; TEMP 98; O2SAT 96
--- NOTE | 2016-09-12 16:21 | HHI.NSPN ---
(Lisa Mtz) Note Status Status: Progress Note (Lisa Mtz) Interval History Interval History 85 y/o female s/p L1 kyphoplasty for compression fracture on 09/09/16. 3: doing well, reports axial back pain resolved. no complaints of sensorimotor changes in LE's. (Lisa Mtz) Labs, Micro, & Vital Signs Results Date Time Temp Pulse Resp B/P Pulse Ox O2 Delivery O2 Flow Rate FiO2 09/12/16 12:00 97.5 74 18 153/77 97 09/12/16 11:42 18 09/12/16 08:00 98.4 71 18 175/86 95 09/11/16 23:15 98.8 81 18 146/63 97 09/11/16 20:05 99.4 77 18 163/84 97 09/12/16 07:00 Intake Total 1080 ml Balance 1080 ml Constitutional Vital Signs Date Time Temp Pulse Resp B/P Pulse Ox O2 Delivery O2 Flow Rate FiO2 09/12/16 12:00 97.5 74 18 153/77 97 09/12/16 11:42 18 09/12/16 08:00 98.4 71 18 175/86 95 09/11/16 23:15 98.8 81 18 146/63 97 09/11/16 20:05 99.4 77 18 163/84 97 09/12/16 07:00 Intake Total 1080 ml Balance 1080 ml (Lisa Mtz) Review of Systems/Exam Exam Sleeping comfortably, arousable. conversing well. CN: pupils equal, facial motor symmetric Neck: supple Motor: moving lower extremities well, exam limited due to her chronic knee pain Sensory: intact to light touch in lower extremities No ankle clonus (Lisa Mtz) Medications Current Medications Current Medications Medications (Trade) Dose Ordered Sig/Michael Route PRN Reason Start Time Stop Time Status Last Admin Dose Admin Albuterol Sulfate (Proair Hfa Inh) 2 puff Q4HR PRN INH SHORTNESS OF BREATH 09/07/16 23:30 Furosemide (Lasix) 40 mg BID PO 09/07/16 23:30 09/10/16 21:54 Isosorbide Mononitrate (Imdur) 30 mg DAILY@07 PO 09/08/16 07:00 09/12/16 06:13 Potassium Chloride (KCl) 10 meq DAILY PO 09/08/16 09:00 09/12/16 10:26 Budesonide/ Formoterol Fumarate (Symbicort 80-4.5 Mcg Inh) 2 puff BID INH AST 09/07/16 23:30 09/12/16 10:28 Ondansetron HCl (Zofran Inj) 4 mg Q6H PRN IVP NAUSEA OR VOMITING 09/08/16 00:15 Naloxone HCl (Narcan Inj) 0.4 mg UNSCH PRN IV SEE LABEL COMMENTS 09/08/16 00:15 Hydralazine HCl (Apresoline Inj) 10 mg Q6H PRN IV SBP> OR = 180, DBP> OR = 100 09/08/16 01:00 Dextrose (D50w (Vial) Inj) 25 ml UNSCH PRN IV PUSH HYPOGLYCEMIA-SEE COMMENTS 09/08/16 01:00 Glucagon (Glucagon Inj) 1 mg UNSCH PRN OTHER HYPOGLYCEMIA-SEE COMMENTS 09/08/16 01:00 Lisinopril (Prinivil) 20 mg DAILY PO 09/09/16 09:00 09/12/16 10:26 Enalaprilat (Vasotec Inj) 1.25 mg Q8H PRN IV PUSH SBP>170, DBP>90 09/08/16 11:00 09/09/16 09:49 Spironolactone (Aldactone) 25 mg DAILY PO 09/09/16 09:00 09/12/16 10:26 Carvedilol (Coreg) 12.5 mg Q12HR PO 09/09/16 21:00 09/12/16 10:27 IV Flush (NS Flush) 2 ml UNSCH PRN IVF FLUSH AFTER USING IV ACCESS 09/09/16 18:15 IV Flush (NS Flush) 2 ml BID IVF 09/09/16 21:00 09/10/16 09:00 Docusate Sodium (Colace) 100 mg BID PO 09/09/16 21:00 09/11/16 22:17 Pantoprazole Sodium (Protonix) 40 mg DAILY PO 09/10/16 09:00 09/12/16 10:27 Acetaminophen/ Hydrocodone Bitart ([place] 10-325 Mg) 1 tab Q4H PRN PO PAIN SCALE 1 TO 5 09/09/16 18:15 09/12/16 14:42 Acetaminophen/ Hydrocodone Bitart ([place] 10-325 Mg) 2 tab Q4H PRN PO PAIN SCALE 6 TO 10 09/09/16 18:15 Morphine Sulfate (Morphine Inj) 2 mg Q2H PRN IV PUSH PAIN SCALE 1 TO 6 09/09/16 18:15 Morphine Sulfate (Morphine Inj) 4 mg Q2H PRN IV PUSH PAIN SCALE 7 TO 10 09/09/16 18:15 Acetaminophen (Tylenol) 650 mg Q4H PRN PO TEMPERATURE > 101.5 F 09/09/16 18:15 09/12/16 00:51 Enoxaparin Sodium (Lovenox Inj) 40 mg Q24H SQ 09/11/16 13:00 09/12/16 13:41 (Lisa Mtz) Medical Decision Making MDM Remarks 85 y/o female s/p L1 Kyphoplasty on 09/09/16 with resolution of axial lumbar pain , doing well post-op, neuro stable (Lisa Mtz) Plan Plan Remarks cont lumbar brace when out of bed avoid strenuous activities, heavy lifting, bending, twisting avoid falls clear for dc from NRS standpoint, f/u in the office in 2 weeks will sign off, call prn (Lisa Mtz) Attending Statement The exam, history, and the medical decision-making described in the above note were completed with the assistance of the mid-level provider. I reviewed and agree with the findings presented. I attest that I had a [id number] encounter with the patient on the same day, and personally performed and documented my assessment and findings in the medical record. (Kelvin Murrieta MD) Lisa Mtz Sep 12, 2016 16:21 Kelvin Murrieta MD Sep 12, 2016 17:34
[2016-09-12 20:00] VITALS: BP 142/68; PULSE 70; RESP 18; TEMP 98.4; O2SAT 98
[2016-09-13] VITALS: BP 146/75; PULSE 77; RESP 17; TEMP 98.2; O2SAT 97
[2016-09-13 04:00] VITALS: BP 131/67; PULSE 72; RESP 18; TEMP 98; O2SAT 96
[2016-09-13] MEDS: ISOSORBIDE MONONITRATE 30 MG TAB PO SCH (07:00)
[2016-09-13 08:00] VITALS: BP 131/83; PULSE 78; RESP 18; TEMP 98.8; O2SAT 94
--- NOTE | 2016-09-13 09:21 | HHI.FPPN ---
Subjective Remarks Pt seen and examined this morning. AFVSS. No acute events overnight. Only complaint is aching in both of her feet and ankles that burn when she bears weight. Requesting a wheelchair. Denies pain in her calves. Otherwise no concerns; denies back pain, chest pain, or shortness of breath. She is able to mobilize without discomfort in her back. Tolerating a diet without nausea or vomiting. Ready to get out of the hospital but understanding of insurance process for authorization to SNF. (Dinora Schneider MD) Objective Vitals Vital Signs Date Time Temp Pulse Resp B/P Pulse Ox O2 Delivery O2 Flow Rate FiO2 09/13/16 04:00 98.0 72 18 131/67 96 09/13/16 00:00 98.2 77 17 146/75 97 09/12/16 20:00 98.4 70 18 142/68 98 09/12/16 16:00 98.0 60 17 136/70 96 09/12/16 12:00 97.5 74 18 153/77 97 09/12/16 11:42 18 I/O 09/12/16 09/12/16 09/12/16 09/13/16 09/13/16 09/13/16 07:00 15:00 23:00 07:00 15:00 23:00 Intake Total 240 ml 950 ml 240 ml Balance 240 ml 950 ml 240 ml Intake Oral 240 ml 950 ml 240 ml # Voids 1 5 1 # Bowel Movements 0 1 (Dinora Schneider MD) Result Diagram: 09/10/16 0700 09/11/16 1200 Objective Remarks GENERAL: WN, WD female, pleasant, laying comfortably in bed in NAD. SKIN: Warm and dry without rashes. AICD palpated in left upper chest. HEENT: Arcus senilis bilaterally. Conjunctiva without erythema. Oropharynx without erythema or exudate. HEART: RRR with 2/6 ARMIN. LUNGS: CTAB without crackles or wheezing. No increased respiratory effort. EXTREMITIES: No significant LE edema. Supple calves without tenderness. Feet and ankles diffusely TTP when squeezed. BACK: Brace in place. NEURO: Awake and alert. No facial drooping. PSYCH: Appropriate mood and affect. Normal speech. (Dinora Schneider MD) A/P Assessment and Plan 85 year old female with CHF, DM, COPD, and HTN was admitted on 09/07/16 for L1 compression fracture secondary to a mechanical fall. Neurosurgery consulted and patient underwent kyphoplasty on 09/09. Her pain is well-controlled and she is stable for discharge. PT recommending SNF; case management assisting with D/C needs. Discharge Planning Hopefully discharge today; patient has been clear for discharge since 09/10 but needs insurance authorization for SNF. (Dinora Schneider MD) Attending Attestation Patient seen and examined. Case reviewed and discussed with the resident team. Agree with plan of care as discussed with me and documented in the resident note. ready to go home (Shannan Baugh MD) Problem List: (1) Compression fracture of L1 lumbar vertebra Status: Acute Plan: Patient sustained T12/L1 compression fracture after a mechanical fall at home. - POD4 s/p T12/L1 kyphoplasty; appreciate neurosurgical intervention - Pain control with [place] 5/325 mg 1-2 tabs PRN - PT recommending rehab/SNF on discharge. Case management assisting with disposition (2) Compression fracture of T12 vertebra Status: Acute Plan: See plans above. (3) Foot pain, bilateral Status: Acute Plan: No bony deformities. Likely from ambulating with PT just in socks since she has diminished fat and padding around her feet. - Can try Gabapentin 100 mg PO HS (4) CHF (NYHA class III, ACC/AHA stage C) Status: Chronic Plan: Patient with biventricular AICD in place. - Echo with EF 20-30% - Spironolactone 25 mg PO daily (started in the hospital; potassium WNL) - Lisinopril 20 mg PO daily - Carvedilol 12.5 mg PO BID - Continue home Lasix 40 mg PO BID and KCl - Continue home Imdur 30 mg PO daily (5) Essential hypertension Status: Chronic Plan: BPs a little bit labile. - Lisinopril 20 mg PO daily - Carvedilol 12.5 mg PO BID - Hydralazine PRN (6) Diabetes mellitus type 2 Status: Chronic Plan: Well-controlled. A1C January 2016 5.8. - Hold home metformin - Hold off on SSI since A1c so low (7) Asthma Status: Chronic Plan: Stable. Maintaining adequate oxygenation. Continue Symbicort and albuterol PRN. (8) Fluids, Electrolytes, Nutrition, Prophylaxis Status: Acute Plan: - Fluids: Tolerating PO - Electrolytes: WNL - Nutrition: Regular diet dw Dr. Baugh (Dinora Schneider MD) Problem Qualifiers (1) Asthma: Qualified Code: J45.20 - Mild intermittent asthma without complication Dinora Schneider MD Sep 13, 2016 09:21 Shannan Baugh MD Sep 14, 2016 12:24
[2016-09-13] MEDS: SPIRONOLACTONE 25 MG TAB PO SCH (09:24)
[2016-09-13] MEDS: FUROSEMIDE 40 MG TAB PO SCH (09:24)
[2016-09-13] MEDS: LISINOPRIL 20 MG TAB PO SCH (09:24)
[2016-09-13] MEDS: POTASSIUM CHLORIDE 10 MEQ CONTROLLED RELEASE TAB PO SCH (09:24)
[2016-09-13] MEDS: DOCUSATE SODIUM 100 MG CAP PO SCH (09:24)
[2016-09-13] MEDS: PANTOPRAZOLE SOD 40 MG DELAYED RELEASE TAB PO SCH (09:24)
[2016-09-13] MEDS: CARVEDILOL 12.5 MG TAB PO SCH (09:24)
[2016-09-13] MEDS: BUDESONIDE-FORMOTEROL 80/4.5 MCG INHALER INH SCH (09:25)
[2016-09-13] MEDS: SODIUM CHLORIDE 0.9% FLUSH 5 ML FLUSH IVF SCH (09:25)
[2016-09-13] MEDS: ACETAMINOPHEN/HYDROcodone 325 MG/10 MG TAB PO PRN (09:42)
[2016-09-13] MEDS ORDERED: GABAPENTIN 100 MG CAP PO SCH ×2 (10:00→21:00)
[2016-09-13 12:00] VITALS: BP 105/59; PULSE 67; RESP 17; TEMP 98.3; O2SAT 93
[2016-10-03] MEDS ORDERED: [UNRECOGNIZED DRUG - REMARK] (13:52)
[2016-10-04] MEDS ORDERED: METF500T PO (12:02)
[2016-10-14] MEDS ORDERED: LISI-519 PO (13:41)
[2016-10-14] MEDS ORDERED: Spironolactone PO (13:41)
[2016-10-14] MEDS ORDERED: CARV6.252 PO (13:41)
[2016-10-14] MEDS ORDERED: FURO1TAB60 PO (13:41)
--- NOTE | 2016-11-02 12:17 | HHI.DS ---
Discharge Summary Admission Date Sep 07, 2016 at 22:55 Discharge Date: Nov 02, 2016 Admitting Diagnosis L1 VERTEBRAL FRACTURE (1) Compression fracture of L1 lumbar vertebra Plan: Patient sustained T12/L1 compression fracture after a mechanical fall at home. - POD4 s/p T12/L1 kyphoplasty; appreciate neurosurgical intervention - Pain control with [place] 5/325 mg 1-2 tabs PRN - PT recommending rehab/SNF on discharge. Case management assisting with disposition (2) Compression fracture of T12 vertebra Plan: See plans above. (3) Foot pain, bilateral Plan: No bony deformities. Likely from ambulating with PT just in socks since she has diminished fat and padding around her feet. - Can try Gabapentin 100 mg PO HS (4) CHF (NYHA class III, ACC/AHA stage C) Plan: Patient with biventricular AICD in place. - Echo with EF 20-30% - Spironolactone 25 mg PO daily (started in the hospital; potassium WNL) - Lisinopril 20 mg PO daily - Carvedilol 12.5 mg PO BID - Continue home Lasix 40 mg PO BID and KCl - Continue home Imdur 30 mg PO daily (5) Essential hypertension Plan: BPs a little bit labile. - Lisinopril 20 mg PO daily - Carvedilol 12.5 mg PO BID - Hydralazine PRN (6) Diabetes mellitus type 2 Plan: Well-controlled. A1C January 2016 5.8. - Hold home metformin - Hold off on SSI since A1c so low (7) Asthma Plan: Stable. Maintaining adequate oxygenation. Continue Symbicort and albuterol PRN. Consultants Neurosurgery Procedures Kyphoplasty Brief History Ms Davis is an 85 year-old female with impaired balance secondary to R knee arthritis who presented to ED with acute low back pain after mechanical fall. Washing her dog in bathtub when when foot slipped on wet tub and she fell backwards, "landing on my butt". She was unable to stand secondary to pain, but crawled to telephone and called EMS. Denies hitting her head, loss of consciousness, or confusion prior to the fall. Reports severe midline lumbar back pain currently, but no other focal pain or weakness. ROS otherwise negative, denies headache, spots in front of her vision, blurry vision , chest pain, shortness of breath, focal weakness, bladder or bowel incontinence , or paraesthesias. She lives alone with her dog and uses cane intermittently for ambulation when her knee acts up. She was placed in Observation as she has an acute L1 fracture. Neurosurgery is consulted. She has pain with movement but feels fine lying in bed. PE at Discharge GENERAL: WN, WD female, pleasant, laying comfortably in bed in NAD. SKIN: Warm and dry without rashes. AICD palpated in left upper chest. HEENT: Arcus senilis bilaterally. Conjunctiva without erythema. Oropharynx without erythema or exudate. HEART: RRR with 2/6 ARMIN. LUNGS: CTAB without crackles or wheezing. No increased respiratory effort. EXTREMITIES: No significant LE edema. Supple calves without tenderness. Feet and ankles diffusely TTP when squeezed. BACK: Brace in place. NEURO: Awake and alert. No facial drooping. PSYCH: Appropriate mood and affect. Normal speech. Hospital Course 85 year old female with CHF, DM, COPD, and HTN was admitted on 09/07/16 for L1 compression fracture secondary to a mechanical fall. Neurosurgery consulted and patient underwent kyphoplasty on 09/09. She was discharged in stable condition on 09/13/16. Hospital stay prolonged secondary to SNF placement. Pt Condition on Discharge: Stable Discharge Disposition: Discharge to SNF Discharge Instructions DIET: Follow Instructions for: Heart Healthy Diet Activities you can perform: Weight Bearing as Ghada Other Activity Instructions: Ambulate with use of wheeled walker. Pt recommended to have bedside commode. Follow up Referrals: Neurosurgery - 2 Weeks with Kelvin Murrieta MD Physician - 1 Week with Dinora Schneider MD SNF/S[facility]TER/ with [facility] New Orders: BASIC METABOLIC PROF - 1 Week New Medications: Albuterol 18 GM Inh (Ventolin Hfa 18 GM Inh) 90 Mcg/Act Aer 2 PUFF INH Q4HR PRN SHORTNESS OF BREATH #1 Ref 3 INHALER Budesonide-Formoterol Inh (Symbicort Inh) 80-4.5 Mcg/Act Aero 2 PUFF INH BID AST #1 Ref 3 INHALER Hydrocodone-Acetaminophen (Hydrocodone-Acetaminophen) 10-325 mg Tab 1 TAB PO Q6HR PRN PAIN SCALE 1 TO 5 #30 Ref 0 TAB Continued Medications: Aspirin (Aspirin) 81 Mg Tabdr 81 MG PO DAILY TAB Isosorbide Mononitrate ER (Isosorbide Mononitrate ER) 30 Mg Vesna 30 MG PO DAILY Prevent Chest Pain #30 Ref 5 TAB Potassium Chloride ER (Potassium Chloride ER) 10 Meq Tab 10 MEQ PO DAILY Electrolyte Replacement #30 Ref 5 TAB Discontinued Medications: Albuterol 8.5 GM Inh (Proair Hfa 8.5 GM Inh) 90 Mcg/Act Aer 2 PUFF INH Q4-6H 108 mcg/actuation PRN SHORTNESS OF BREATH #1 Ref 6 INHALER Carvedilol (Carvedilol) 6.25 Mg Tab 6.25 MG PO BID #60 Ref 5 TAB Lisinopril (Lisinopril) 10 Mg Tab 10 MG PO DAILY #30 Ref 5 TAB Dinora Schneider MD Nov 02, 2016 12:17
[2016-11-06] MEDS ORDERED: POTA10TA2 PO (12:29)
[2016-12-21] MEDS ORDERED: MEDR4PAK PO (14:48)
[2016-12-21] MEDS ORDERED: HYDR-3533 PO (14:48)
[2016-12-27] MEDS ORDERED: CALC200S NASAL (09:32)
== END 2016-09-13 15:55 ==
LOC: NEPE 20:20 → NEDA 22:55 → NEDH 09-08 03:05 → NEPFCDU 09-08 08:11 → N06B 09-09 18:43
PROVIDERS: ADMIT Family Medicine; ATTEND Family Medicine
DX: S22.080A Wedge compression fracture of T11-T12 vertebra, initial encounter for closed fracture (principal); S32.010A Wedge compression fracture of first lumbar vertebra, initial encounter for closed fracture; M46.96 Unspecified inflammatory spondylopathy, lumbar region; J44.9 Chronic obstructive pulmonary disease, unspecified; E11.9 Type 2 diabetes mellitus without complications; I11.0 Hypertensive heart disease with heart failure; I50.22 Chronic systolic (congestive) heart failure; I42.9 Cardiomyopathy, unspecified; I25.10 Atherosclerotic heart disease of native coronary artery without angina pectoris; K21.9 Gastro-esophageal reflux disease without esophagitis; Z86.73 Personal history of transient ischemic attack (TIA), and cerebral infarction without residual deficits; W01.0XXA Fall on same level from slipping, tripping and stumbling without subsequent striking against object, initial encounter; Y93.F1 Activity, caregiving, bathing; Y92.002 Bathroom of unspecified non-institutional (private) residence as the place of occurrence of the external cause
CPT/HCPCS: 01936; 22513; 22515; 72070; 72128; 72131; 72170; 80048; 80053; 82948; 85025; 85610; 85652; 85730; 93005; 93306; 94150; 97110; 97116; 97162; 97164; 97167; 97530; 97535; 99285; G0378; G8987; G8988; J0131; J0690; J1650; J2250; J2270; J2370; J2405; J3010; J3370; J3480; J7030; J7050; J7613; L0484; L0627; Q9967; 76937

== ENCOUNTER 2017-02-02 16:41 | Inpatient (IN) | payer MEDICARE, OTHER ==
[~2017-02-02] VITALS: Ht 172.7 cm; Wt 89.8 kg
[2017-02-02] VITALS (8 sets, daily range): BP systolic 149–184; BP diastolic 68–85; PULSE 63–79; RESP 16–19; TEMP 98.2–99.5; O2SAT 95–98
[~2017-02-02 16:41] MED LIST changes: -ADVA100A INH; -ALBUAER3 INH; -ASPI1TAB69 PO; +ASPI325T PO; +CALC200S NASAL; -CALCCHW9 CHEW; +LISI-519 PO; -LISI10TA3 PO; +OMEP40CA2 PO; +PERI8.6T PO; +SYMB80AE INH; +Spironolactone PO; +VENTAER INH; -VITA200012 PO; +[UNRECOGNIZED DRUG - REMARK]
--- NOTE | 2017-02-02 16:50 | PD ---
Physical Exam Time Seen by Provider: 16:49 Narrative 86 y/o female sent by PCP for low hgb, positive outpatient guiac+ stool. She does endorse abdominal pain. Vital signs reviewed. Seen at triage desk. Awaiting bed placement. Data Data Last Documented VS Vital Signs Date Time Temp Pulse Resp B/P Pulse Ox O2 Delivery O2 Flow Rate FiO2 02/02/17 16:43 99.5 78 16 154/85 95 Room Air [facility] Medical Record Reviewed: Yes Supervised Visit with DINORA: Chirag Palmer Feb 02, 2017 16:50
[2017-02-02 17:36] LABS: AUTOMATED NEUTROPHIL # 3.9 TH/MM3 (1.8-7.7); BASOPHIL % 0.5 % (0.0-2.0); EOSINOPHIL # 0.2 TH/MM3 (0-0.4); EOSINOPHIL % 3.5 % (0.0-4.0); HEMATOCRIT 23.4 % (35.0-46.0); HEMO FLAGS DIFF FINAL; LYMPH % 27.8 % (9.0-44.0); LYMPHOCYTE # 1.9 TH/MM3 (1.0-4.8); MEAN CELL VOLUME 84.8 FL (80.0-100.0); MEAN CORPUSCULAR HEMOGLOBIN 26.8 PG (27.0-34.0); MEAN CORPUSCULAR HGB CONC 31.6 % (32.0-36.0); MONO % 10.8 % (0.0-8.0); NEUT % 57.4 % (16.0-70.0); PLATELET COUNT 201 TH/MM3 (150-450); RED BLOOD COUNT 2.76 MIL/MM3 (4.00-5.30); RED CELL DISTRIBUTION WIDTH 14.7 % (11.6-17.2); WHITE BLOOD COUNT 6.8 TH/MM3 (4.0-11.0)
[2017-02-02 18:01] LABS: APTT (PATIENT) 22.2 SEC (24.3-30.1); INTERNATIONAL NORMALIZED RATIO 0.9 RATIO; PROTHROMBIN TIME - PATIENT 10.2 SEC (9.8-11.6)
[2017-02-02 18:04] LABS: ANION GAP 4 MEQ/L (5-15); BICARBONATE 24.6 MEQ/L (21.0-32.0); BLOOD UREA NITROGEN 38 MG/DL (7-18); CHLORIDE 111 MEQ/L (98-107); GLOMERULAR FILTRATION RATE 48 ML/MIN (>89); POTASSIUM 5.2 MEQ/L (3.5-5.1); SODIUM (NA) 140 MEQ/L (136-145)
[2017-02-02 18:05] LABS: ALT (GPT) 13 U/L (10-53)
[2017-02-02 18:11] LABS: ALKALINE PHOSPHATASE 61 U/L (45-117); AST (GOT) 16 U/L (15-37); TOTAL BILIRUBIN ADULT 0.2 MG/DL (0.2-1.0)
--- NOTE | 2017-02-02 18:58 | PD ---
HPI Chief Complaint: GI Complaint Time Seen by Provider: 17:38 Travel History International Travel<30 days: No Contact w/Intl Traveler<30days: No Traveled to known affect area: No History of Present Illness HPI Patient is an 86-year-old female presents emergency department for evaluation of GI bleeding. Patient has been attempting to do outpatient workup with a primary care physician for dark stools. Apparently she had already test fecal occult positive. Her primary care physician and sent blood work yesterday which showed today that she had a hemoglobin of 8, she was called and told to come to the emergency department further evaluation. She states she's been having a chronic ache in her low belly for the past week or so. Denies any fever denies any nausea or vomiting. Denies any use of blood thinners. She states that blood transfused before and denies history of colonoscopy ever. She states that she has been feeling somewhat weak almost looks to pass out. PFSH Past Medical History Arthritis: Yes Asthma: No Autoimmune Disease: No Blood Disorders: No Anxiety: No Depression: No Heart Rhythm Problems: Yes Cancer: No Cardiovascular Problems: Yes (CAD) High Cholesterol: Yes Chemotherapy: No Chest Pain: Yes Congestive Heart Failure: No COPD: Yes Cerebrovascular Accident: Yes Coronary Artery Disease: Yes Diabetes: Yes Patient Takes Glucophage: Yes Diminished Hearing: Yes Endocrine: Yes Gastrointestinal Disorders: No GERD: Yes Glaucoma: No Genitourinary: No Headaches: Yes Hepatitis: No Hiatal Hernia: No Hypertension: Yes Immune Disorder: No Implanted Vascular Access Dvce: Yes (AICD, [employer]tr[employer]) Kidney Stones: No Musculoskeletal: Yes (ARTHRITIS) Neurologic: No Psychiatric: No Reproductive: No Respiratory: Yes Integumentary: No Immunizations Current: No Migraines: No Myocardial Infarction: Yes Radiation Therapy: No Renal Failure: No Seizures: No Sickle Cell Disease: No Sleep Apnea: No Thyroid Disease: No Ulcer: No PNEUMOCCOCAL Vaccine (Year): 2010 Menopausal: Yes Past Surgical History AICD: No Appendectomy: Yes Arteriovenous Shunt: No Body Medical Devices: PACEMAKER Cardiac Surgery: No Cholecystectomy: Yes Ear Surgery: No Endocrine Surgery: No Eye Surgery: No Hysterectomy: Yes (PARTIAL) Insulin Pump: No Joint Replacement: No Neurologic Surgery: No Oral Surgery: No Pacemaker: Yes Thoracic Surgery: No Other Surgery: Yes (PACEMAKER) Social History Alcohol Use: No Tobacco Use: No Substance Use: No Allergies-Medications (Allergen,Severity, Reaction): Coded Allergies: Effexor (Verified Allergy, Intermediate, swelling, 01/25/17) swelling in feet Reported Meds & Prescriptions Reported Meds & Active Scripts Active Lucrecia-Colace (Sennosides-Docusate Sodium) 8.6-50 Mg Tab 1 Tab PO BID Calcitonin ([place]) Nasal [place] (Calcitonin [place]) 200 Units/Act Soln 1 [place] NASAL DAILY Alternate nostrils daily. Potassium Chloride ER (Potassium Chloride) 10 Meq Tab 10 Meq PO DAILY Lisinopril 5 Mg Tab 5 Mg PO DAILY Carvedilol 6.25 Mg Tab 6.25 Mg PO BID Lasix (Furosemide) 40 Mg Tab 40 Mg PO DAILY Metformin (Metformin HCl) 500 Mg Tab 500 Mg PO DAILY With a meal [personal care worker] Symbicort Inh (Budesonide/Formoterol Fumarate) 80-4.5 Mcg/Act Aero 2 Puff INH BID Ventolin Hfa 18 GM Inh (Albuterol Sulfate) 90 Mcg/Act Aer 2 Puff INH Q4HR PRN Isosorbide Mononitrate ER (Isosorbide Mononitrate) 30 Mg Vesna 30 Mg PO DAILY Review of Systems Except as stated in HPI: all other systems reviewed are Neg Physical Exam Narrative GENERAL: Well-developed well-nourished, appears younger than stated age, no apparent distress. SKIN: Focused skin assessment warm/dry. HEAD: Atraumatic. Normocephalic. EYES: Pupils equal and round. No scleral icterus. No injection or drainage. ENT: No nasal bleeding or discharge. Mucous membranes pink and moist. NECK: Trachea midline. No JVD. CARDIOVASCULAR: Regular rate and rhythm. No murmur appreciated. RESPIRATORY: No accessory muscle use. Clear to auscultation. Breath sounds equal bilaterally. GASTROINTESTINAL: Abdomen soft, non-tender, nondistended. Hepatic and splenic margins not palpable. Rectal exam was performed with female bus repair supervisor present at all times, grossly melanotic, fecal occult positive. No hemorrhoids. MUSCULOSKELETAL: No obvious deformities. No clubbing. No cyanosis. No edema. NEUROLOGICAL: Awake and alert. No obvious cranial nerve deficits. Motor grossly within normal limits. Normal speech. PSYCHIATRIC: Appropriate mood and affect; insight and judgment normal. Data Data Last Documented VS Vital Signs Date Time Temp Pulse Resp B/P Pulse Ox O2 Delivery O2 Flow Rate FiO2 02/02/17 19:44 63 18 184/81 96 Room Air 02/02/17 16:43 99.5 Orders Complete Blood Count With Diff (02/02/17 16:51) Comprehensive Metabolic Panel (02/02/17 16:51) Lipase (02/02/17 16:51) Prothrombin Time / Inr (Pt) (02/02/17 16:51) Act Partial Throm Time (Ptt) (02/02/17 16:51) Urinalysis - C+S If Indicated (02/02/17 16:51) Iv Access Insert/Monitor (02/02/17 16:51) Type And Screen (02/02/17 16:51) Ct Abd/Pel W Iv Contrast(Rout) (02/02/17 ) Red Blood Cells (Rbc) (02/02/17 19:38) Blood Product Administration .UPON TRANSFUSION (02/02/17 19:38) Sodium Chlor 0.9% 250 Ml Inj (Ns 250 Ml (02/02/17 19:45) Admit Order (Ed Use Only) (02/02/17 ) Labs Laboratory Tests Test 02/02/17 17:00 White Blood Count 6.8 TH/MM3 Red Blood Count 2.76 MIL/MM3 Hemoglobin 7.4 GM/DL Hematocrit 23.4 % Mean Corpuscular Volume 84.8 FL Mean Corpuscular Hemoglobin 26.8 PG Mean Corpuscular Hemoglobin 31.6 % Concent Red Cell Distribution Width 14.7 % Platelet Count 201 TH/MM3 Mean Platelet Volume 9.0 FL Neutrophils (%) (Auto) 57.4 % Lymphocytes (%) (Auto) 27.8 % Monocytes (%) (Auto) 10.8 % Eosinophils (%) (Auto) 3.5 % Basophils (%) (Auto) 0.5 % Neutrophils # (Auto) 3.9 TH/MM3 Lymphocytes # (Auto) 1.9 TH/MM3 Monocytes # (Auto) 0.7 TH/MM3 Eosinophils # (Auto) 0.2 TH/MM3 Basophils # (Auto) 0.0 TH/MM3 CBC Comment DIFF FINAL Differential Comment Prothrombin Time 10.2 SEC Prothromb Time International 0.9 RATIO Ratio Activated Partial 22.2 SEC Thromboplast Time Sodium Level 140 MEQ/L Potassium Level 5.2 MEQ/L Chloride Level 111 MEQ/L Carbon Dioxide Level 24.6 MEQ/L Anion Gap 4 MEQ/L Blood Urea Nitrogen 38 MG/DL Creatinine 1.28 MG/DL Estimat Glomerular Filtration 48 ML/MIN Rate Random Glucose 90 MG/DL Calcium Level 9.1 MG/DL Total Bilirubin 0.2 MG/DL Aspartate Amino Transf 16 U/L (AST/SGOT) Alanine Aminotransferase 13 U/L (ALT/SGPT) Alkaline Phosphatase 61 U/L Total Protein 6.5 GM/DL Albumin 3.3 GM/DL Lipase 241 U/L Blood Type O POSITIVE Antibody Screen NEGATIVE MDM Medical Decision Making Medical Screen Exam Complete: Yes Emergency Medical Condition: Yes Differential Diagnosis GI bleeding, anemia, low platelets, hypocoagulable, varices, ulcers, colon cancer. Narrative Course Patient roomed in the emergency Department, hemodynamically stable, she appears to lost a significant amount of blood since her last blood test and is even dropped her presumable gram of hemoglobin in the day and half exudate 7.4.. Blood transfusion has been ordered. Discussed with Dr. Baker for admission likely may need colonoscopy/endoscopy. Platelets normal, PTT and INR normal. Risks benefits competitions and alternatives were discussed of blood transfusion with the patient. Diagnosis Primary Impression: Anemia Additional Impression: GI bleeding Admitting Information Admitting Physician Requests: Admit Condition: Stable Pete Snow MD Feb 02, 2017 18:58
[2017-02-02] MEDS ORDERED: SODIUM CHLOR 0.9% 250 ML INJ 250 ML IV ONE (19:45)
[2017-02-02] MEDS ORDERED: IOHEXOL 350 MG/ML 10 ML VIAL (for RAD DIAG) IV ONE (20:48)
[2017-02-02] MEDS ORDERED: NALOXONE HCL 0.4 MG/ML AMP IV PRN (21:00)
[2017-02-02] MEDS ORDERED: SODIUM CHLORIDE 0.9% FLUSH 10 ML FLUSH IV FLUSH PRN (21:00)
[2017-02-02] MEDS: SODIUM CHLORIDE 0.9% FLUSH 10 ML FLUSH IV FLUSH SCH (21:00)
--- NOTE | 2017-02-02 21:07 | RADRPT ---
EXAM DATE/TIME: 02/02/2017 20:25 [place] COMPARISON: No previous studies available for comparison. INDICATIONS : Abdominal pain with blood in stool. IV CONTRAST: 80 cc Omnipaque 350 (iohexol) IV ORAL CONTRAST: No oral contrast ingested. RADIATION DOSE: 10.96 CTDIvol (mGy) MEDICAL HISTORY : Cardiovascular disease. Hypertension. Diabetes mellitus type 1. SURGICAL HISTORY : Pacemaker. Appendectomy.Cholecystectomy. ENCOUNTER: Initial ACUITY: 1 day PAIN SCALE: 6/10 LOCATION: lower quadrant TECHNIQUE: Volumetric scanning of the abdomen and pelvis was performed. Using automated exposure control and ad justment of the mA and/or kV according to patient size, radiation dose was kept as low as reasonably achievable to obtain optimal diagnostic quality images. DICOM format image data is available electro nically for review and comparison. FINDINGS: There is minimal basal atelectasis and lungs. Cardiomegaly. Pacer leads overlie right and right ventr icle. No significant abnormality in the liver, spleen, adrenals, kidneys or pancreas. Previous cholec ystectomy. Mild constipation. No free air or free fluid. No bowel obstruction. CONCLUSION: 1. Mild constipation. No obstruction, free fluid or free air. 2. Previous cholecystectomy. No hydronephrosis. Previous kyphoplasty at T12-L1. Azeem Bragg MD on February 02, 2017 at 21:02 Board Certified Radiologist. This report was verified electronically.
[2017-02-03] VITALS (9 sets, daily range): BP systolic 121–171; BP diastolic 58–75; PULSE 60–85; RESP 16–20; TEMP 98–98.8; O2SAT 94–98
[2017-02-03] MEDS ORDERED: FUROSEMIDE 20 MG/2 ML VIAL IV ONE (01:15)
[2017-02-03] MEDS ORDERED: PANTOPRAZOLE INJ 80 MG in SODIUM CHLORIDE 0.9% INJ 35 ML IV ONE (04:00)
[2017-02-03] MEDS ORDERED: GLUCAGON 1 MG/ML VIAL OTHER PRN (04:30)
[2017-02-03] MEDS ORDERED: DEXTROSE 50% IN WATER 50 ML VIAL(D50) IV PRN (04:30)
[2017-02-03] MEDS ORDERED: ALBUTEROL SULFATE 90 MCG/ACT HFA 8 GM INHALER INH PRN (04:30)
[2017-02-03] MEDS ORDERED: ALBUTEROL SULFATE 90 MCG/ACT HFA 18 GM INHALER INH PRN (04:45)
[2017-02-03] MEDS: PANTOPRAZOLE INJ 80 MG in SODIUM CHLORIDE 0.9% INJ 100 ML IV SCH ×2 (04:55→14:00)
--- NOTE | 2017-02-03 04:56 | HHI.HP ---
HPI Service Family Medicine Primary Care Physician Unknown Admission Diagnosis GI bleed Diagnoses: International Travel<30 Days: No Contact w/Intl Traveler<30days: No Known Affected Area: No History of Present Illness Of note slightly poor story and as patient had been woken in the middle the night to obtain history, most of history obtained from chart review This is a 86-year-old -[place] female with extensive past medical history significant for type 2 diabetes, hypertension, history of CVA, congestive heart failure with AICD. She presented to her PCP Dr. Bettina Leong on 01/31/17, where she was complaining of few day history of dark tarry stools. She says she's been having low energy since September 08, 2016. Her PCP provider with the fecal occult blood test was positive. Yesterday she obtained a hemoglobin lab value of 8, and was told to go to the hospital for further evaluation. At that time she reported having a chronic ache in her lower belly for the past week or so. She is having some mild nausea due to the belly pain, but denies any vomiting. Only blood thinner she is taking his aspirin. She denies ever having blood transfusions or colonoscopy. (Charlie Conway MD R2) Review of Systems Constitutional: COMPLAINS OF: Fatigue, DENIES: Fever, Weight gain, Weight loss , Chills, Change in appetite Eyes: DENIES: Blurred vision, Eye pain, Double Vision Ears, nose, mouth, throat: DENIES: Hoarseness, Running Nose, Sinus Pain Respiratory: DENIES: Cough, Wheezing, Sputum production, Shortness of breath Cardiovascular: DENIES: Chest pain, Syncope, Lower Extremity Edema Gastrointestinal: COMPLAINS OF: Black stools (tarry), Nausea, DENIES: Abdominal pain, Bloody stools, Constipation, Diarrhea, Vomiting Genitourinary: DENIES: Urinary incontinence, Vaginal discharge Musculoskeletal: COMPLAINS OF: Back pain, DENIES: Joint pain, Muscle aches Integumentary: DENIES: Rash Hematologic/lymphatic: DENIES: Bruising Neurologic: DENIES: Abnormal gait, Headache, Paresthesias, Seizures, Poor Balance Psychiatric: DENIES: Anxiety, Confusion, Depression (Charlie Conway MD R2) Past Family Social History Past Medical History CHF with AICD (BI-V Medtronic) - echo September 2016 25-30% Asthma /COPD Diabetes mellitus GERD Headaches Depression Hypertension Osteoarthritis History of CVA Coronary artery disease Ventricular tachycardia (AICD in place, Medtronic) Bilateral carpal tunnel syndrome L1 compression fracture September 2016 Past Surgical History Appendectomy Cholecystectomy Hysterectomy Bilateral bunionectomy Laparoscopic intestinal abscess drainage AICD placement Kyphoplasty September 2016 Reported Medications Reported Meds & Active Scripts Active Lucrecia-Colace (Sennosides-Docusate Sodium) 8.6-50 Mg Tab 1 Tab PO BID Calcitonin ([place]) Nasal [place] (Calcitonin [place]) 200 Units/Act Soln 1 [place] NASAL DAILY Alternate nostrils daily. 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] Symbicort Inh (Budesonide/Formoterol Fumarate) 80-4.5 Mcg/Act Aero 2 Puff INH BID Ventolin Hfa 18 GM Inh (Albuterol Sulfate) 90 Mcg/Act Aer 2 Puff INH Q4HR PRN Isosorbide Mononitrate ER (Isosorbide Mononitrate) 30 Mg Vesna 30 Mg PO DAILY ( Charlie Conway MD R2) Allergies: Coded Allergies: Effexor (Verified Allergy, Intermediate, swelling, 01/25/17) swelling in feet Active Ordered Medications Current Medications Medications (Trade) Dose Ordered Sig/Michael Route Start Time Stop Time Status Last Admin (NS 250 ml Inj) 250 ml @ 15 mls/hr ONCE ONCE IV 02/02/17 19:45 02/03/17 12:24 02/02/17 21:39 (NS Flush) 2 ml UNSCH PRN IV FLUSH 02/02/17 21:00 (NS Flush) 2 ml BID IV FLUSH 02/02/17 21:00 02/02/17 21:00 Naloxone HCl 0.4 mg 0.4 mg UNSCH PRN IV 02/02/17 21:00 (Protonix Inj/NS Inj) 100 ml @ 10 mls/hr Q10H IV 02/03/17 04:00 Family History Mother: of lung cancer in 60s Father: in 70s Grandfather lived to be past 100 Social History Lives in elderly community Support system includes friends and grandson Has a small dog Self-manages medications with pill organizer Denies alcohol, tobacco, or substance use Had a 5 pack year history of smoking. Quit over 40 years ago (Charlie Conway MD R2) Physical Exam Vital Signs Vital Signs Date Time Temp Pulse Resp B/P Pulse Ox O2 Delivery O2 Flow Rate FiO2 02/03/17 01:30 98.0 62 20 171/75 98 02/03/17 01:15 98.3 64 20 164/72 97 02/03/17 00:30 98.3 62 20 165/74 97 02/02/17 23:55 98.5 64 16 149/68 96 02/02/17 22:35 98.2 64 16 169/79 97 02/02/17 21:54 98.3 74 18 158/75 98 Room Air 02/02/17 21:39 98.3 73 18 166/77 96 Room Air 02/02/17 20:57 79 18 166/77 95 Room Air 02/02/17 19:44 63 18 184/81 96 Room Air 02/02/17 18:00 74 19 161/78 98 Room Air 02/02/17 16:43 99.5 78 16 154/85 95 Room Air Physical Exam GENERAL: This is a well-nourished, well-developed patient, in no apparent distress, lying in bed sleeping comfortably followed receiving blood transfusion. SKIN: No rashes, ecchymoses or lesions. Cool and dry. HEAD: Atraumatic. Normocephalic. No temporal or scalp tenderness. EYES: Pupils equal round and reactive. Extraocular motions intact. No scleral icterus. No injection or drainage. Sclera appears jack prizer ENT: Nose without bleeding, purulent drainage or septal hematoma. Throat without erythema, tonsillar hypertrophy or exudate. Uvula midline. Airway patent. NECK: Trachea midline. No JVD or lymphadenopathy. Supple, nontender, no meningeal signs. CARDIOVASCULAR: Regular rate and rhythm without murmurs, gallops, or rubs. RESPIRATORY: Clear to auscultation. Breath sounds equal bilaterally. No wheezes , rales, or rhonchi. GASTROINTESTINAL: Abdomen soft, non-tender, nondistended. No hepato-splenomegaly , or palpable masses. No guarding. MUSCULOSKELETAL: Extremities without clubbing, cyanosis, or edema. No joint tenderness, effusion, or edema noted. No calf tenderness. Negative Homans sign bilaterally. NEUROLOGICAL: Awake and alert. Cranial nerves II through XII grossly intact. Motor and sensory grossly within normal limits. Full range of motion Normal speech. Laboratory Laboratory Tests Test 02/02/17 02/02/17 17:00 20:00 White Blood Count 6.8 Red Blood Count 2.76 Hemoglobin 7.4 Hematocrit 23.4 Mean Corpuscular Volume 84.8 Mean Corpuscular Hemoglobin 26.8 Mean Corpuscular Hemoglobin 31.6 Concent Red Cell Distribution Width 14.7 Platelet Count 201 Mean Platelet Volume 9.0 Neutrophils (%) (Auto) 57.4 Lymphocytes (%) (Auto) 27.8 Monocytes (%) (Auto) 10.8 Eosinophils (%) (Auto) 3.5 Basophils (%) (Auto) 0.5 Neutrophils # (Auto) 3.9 Lymphocytes # (Auto) 1.9 Monocytes # (Auto) 0.7 Eosinophils # (Auto) 0.2 Basophils # (Auto) 0.0 CBC Comment DIFF FINAL Differential Comment Prothrombin Time 10.2 Prothromb Time International 0.9 Ratio Activated Partial 22.2 Thromboplast Time Sodium Level 140 Potassium Level 5.2 Chloride Level 111 Carbon Dioxide Level 24.6 Anion Gap 4 Blood Urea Nitrogen 38 Creatinine 1.28 Estimat Glomerular Filtration 48 Rate Random Glucose 90 Calcium Level 9.1 Total Bilirubin 0.2 Aspartate Amino Transf 16 (AST/SGOT) Alanine Aminotransferase 13 (ALT/SGPT) Alkaline Phosphatase 61 Total Protein 6.5 Albumin 3.3 Lipase 241 Blood Type O POSITIVE O POSITIVE Antibody Screen NEGATIVE Crossmatch Leukocyte-Reduced Red Blood Cells Blood Bank Comment (Charlie Conway MD R2) Result Diagram: 02/02/17 1700 02/02/17 1700 Imaging Last Impressions Abdomen/Pelvis CT 02/02/17 0000 Signed Impressions: Service Date/Time: January 20:25 - CONCLUSION: 1. Mild constipation. No obstruction, free fluid or free air. 2. Previous cholecystectomy. No hydronephrosis. Previous kyphoplasty at T12-L1. Azeem Bragg MD (Charlie Conway MD R2) Assessment and Plan Assessment and Plan This is a 86-year-old -[place] female with extensive past medical history significant for type 2 diabetes, hypertension, history of CVA, congestive heart failure with AICD. Admitted hospital for GI bleed Code Status Full code Discussed Condition With wdw: Med Team B (Charlie Conway MD R2) Attending Attestation Round table discussion with Dr Conway, Dr Leong, Dr Cespedes and Dr Swenson about patients admission and subsequent hospital course was held this am,EMR reviewed , patient seen and examined by team,agree with Assessment and Plan and contents of this note, see Orders. (Edis Schmitt MD) Problem List: (1) GI bleeding Status: Acute Plan: Patient found to have positive Hemoccult 2 once in the PCPs office and once in the ED. Outpatient hemoglobin/hematocrit was 8.0/25.5 respectively. In the ED her hemoglobin and hematocrit was 7.4/23.4 respectively. Patient was in the process of getting 1 unit of blood transfused during exam. Patient reports feeling better having received the blood. * Admitted to inpatient * GI applications development consultant recommendations appreciated * Diet nothing by mouth * Started Protonix drip * Blood transfusion 2 * CBC, BMP ordered for the a.m. (2) Diabetes mellitus Status: Chronic Plan: Patient with a history of type 2 diabetes * Holding home metformin * Blood glucose checks per protocol * Low-dose insulin sliding scale (3) Hypertension Status: Chronic Plan: Long-standing history of hypertension * Continue home medications of carvedilol * Continue home medication of Lasix * Continue home medication of Imdur * Continue home medication of lisinopril * Monitor blood pressure while in the hospital (4) Chronic congestive heart failure Status: Chronic Plan: Patient with history of chronic congestive heart failure, status post AICD. * We'll monitor her vitals she is in the hospital. * We'll monitor for fluid overload while she is in the hospital. * See hypertension plan above (5) COPD (chronic obstructive pulmonary disease) Status: Chronic Plan: She has a long-standing history of COPD. * Continue home medication of albuterol * Continue home medications Symbicort (6) Nutrition, metabolism, and development symptoms Status: Acute Plan: Diet: Nothing by mouth Fluids: NS at 84 MLS per hour (half maintenance due to concern for fluid overload with history of congestive heart failure) Monitor electrolytes and replace accordingly Vitals every 4 Out of bed with assistance DVT prophylaxis: Holding pharmacological prophylaxis due to GI bleed, we'll use SCDs GI prophylaxis: Protonix drip CODE STATUS: Full code Disposition: Pending GI recommendations, and improvement of GI bleed/anemia (Charlie Conway MD R2) Physician Certification 2 Midnight Certification Type: Admission for Inpatient Services Order for Inpatient Services The services are ordered in accordance with Medicare regulations or non- Medicare payer requirements, as applicable. In the case of services not specified as inpatient-only, they are appropriately provided as inpatient services in accordance with the 2-midnight benchmark. Estimated LOS (days): 3 days is the estimated time the patient will need to remain in the hospital, assuming treatment plan goals are met and no additional complications. Post-Hospital Plan: Home (Charlie Conway MD R2) Problem Qualifiers (1) GI bleeding: Qualified Code: K92.2 - Gastrointestinal hemorrhage, unspecified gastrointestinal hemorrhage type (2) Diabetes mellitus: Qualified Code: E11.8 - Type 2 diabetes mellitus with complication, without long-term current use of insulin (3) Hypertension: Qualified Code: I10 - Essential hypertension Charlie Conway MD R2 Feb 03, 2017 04:56 Edis Schmitt MD Feb 03, 2017 13:56
[2017-02-03] MEDS: SODIUM CHLOR 0.9% 1000 ML INJ 1,000 ML IV SCH ×2 (05:21→16:40)
[2017-02-03] MEDS: ISOSORBIDE MONONITRATE 30 MG TAB PO SCH ×2 (05:21→10:27)
[2017-02-03] MEDS: INSULIN ASPART SUPPLEMENTAL SCALE SQ SCH ×4 (05:27→21:00)
[2017-02-03] MEDS ORDERED: PEG (High)/E-LYTE SOLN 4000 ML BTL PO ONE (08:45)
[2017-02-03] MEDS: BUDESONIDE-FORMOTEROL 80/4.5 MCG INHALER INH SCH ×2 (09:00→21:32)
[2017-02-03] MEDS: SODIUM CHLORIDE 0.9% FLUSH 10 ML FLUSH IV FLUSH SCH ×2 (09:00→21:33)
--- NOTE | 2017-02-03 09:06 | PD.CONS ---
HPI History of Present Illness This is a 86-year-old -[place] female with past medical history significant for type 2 diabetes, hypertension, history of CVA, congestive heart failure with AICD who presents to [facility] per PCP recommendations for evaluation of out patient labs that revealed hgb of 8, and black stools. Patient broke her back in September and under went Kyphoplasty and since then, she has been having pain in lower abd, so she started taking OTC NSAIDs to get some relief, but the pain continue to get worse. She had a f/u with the back surgeon , but was told nothing wrong there. Was evaluated by PCP and was told this is constipation and was prescribed laxatives, but the pain continued to get worse, and was starting to feel weak. She also had decreased appetite. She noticed black stools for the past 2 weeks but didn't think much of it. She denies previous hx of PUD or bleeding. She is on ASA. Denies nausea, vomiting, hematemesis, or hematochezia. She never had colonoscopy before. Abdomen/Pelvis CT 02/02/17 1. Mild constipation. No obstruction, free fluid or free air. 2. Previous cholecystectomy. No hydronephrosis. Previous kyphoplasty at T12-L1. hgb yesterday 7.4, she received 2 units of blood, repeat labs pending. (Frederick Restrepo) PFSH Past Medical History CHF with AICD (BI-V Medtronic) - echo September 2016 25-30% Asthma /COPD Diabetes mellitus GERD Headaches Depression Hypertension Osteoarthritis History of CVA Coronary artery disease Ventricular tachycardia (AICD in place, Medtronic) Bilateral carpal tunnel syndrome L1 compression fracture September 2016 Past Surgical History Appendectomy Cholecystectomy Hysterectomy Bilateral bunionectomy Laparoscopic intestinal abscess drainage AICD placement Kyphoplasty September 2016 (Frederick Restrepo) Coded Allergies: Effexor (Verified Allergy, Intermediate, swelling, 01/25/17) swelling in feet Medications Current Medications Medications (Trade) Dose Ordered Sig/Michael Route Start Time Stop Time Status Last Admin (NS 250 ml Inj) 250 ml @ 15 mls/hr ONCE ONCE IV 02/02/17 19:45 02/03/17 12:24 02/02/17 21:39 (NS Flush) 2 ml UNSCH PRN IV FLUSH 02/02/17 21:00 (NS Flush) 2 ml BID IV FLUSH 02/02/17 21:00 02/02/17 21:00 Naloxone HCl 0.4 mg 0.4 mg UNSCH PRN IV 02/02/17 21:00 (Protonix Inj/NS Inj) 100 ml @ 10 mls/hr Q10H IV 02/03/17 04:00 02/03/17 04:55 (Symbicort 80-4.5 Mcg Inh) 2 puff BID INH 02/03/17 09:00 (Coreg) 6.25 mg BID PO 02/03/17 09:00 (Lasix) 40 mg DAILY PO 02/03/17 09:00 (Imdur) 30 mg DAILY@07 PO 02/03/17 07:00 (Prinivil) 5 mg DAILY PO 02/03/17 09:00 (D50w (Vial) Inj) 50 ml UNSCH PRN IV 02/03/17 04:30 (Glucagon Inj) 1 mg UNSCH PRN OTHER 02/03/17 04:30 Albuterol Sulfate 2 puff 2 puff Q4H PRN INH 02/03/17 04:45 (NS 1000 ml Inj) 1,000 ml @ 84 mls/hr [id number] IV 02/03/17 04:45 02/03/17 05:21 Family History Non contributory Social History No alcohol No smoking No illicit drug use (Frederick Restrepo) Review of Systems Constitutional: COMPLAINS OF: Fatigue Endocrine: DENIES: Polyuria Eyes: DENIES: Double Vision Ears, nose, mouth, throat: DENIES: Hoarseness Respiratory: COMPLAINS OF: Shortness of breath Cardiovascular: DENIES: Lower Extremity Edema Gastrointestinal: COMPLAINS OF: Abdominal pain, Black stools, Constipation, Anorexia, DENIES: Bloody stools, Diarrhea, Nausea, Vomiting, Difficulty Swallowing, Odynophagia, Swelling of Abdomen, Heartburn, Hematemesis Genitourinary: DENIES: Nocturia Musculoskeletal: COMPLAINS OF: Back pain Integumentary: DENIES: Jaundice Hematologic/lymphatic: DENIES: Bruising Immunologic/allergic: DENIES: Eczema Neurologic: DENIES: Abnormal gait Psychiatric: DENIES: Anxiety (Frederick Restrepo) GI Exam Vitals I&O Vital Signs Date Time Temp Pulse Resp B/P Pulse Ox O2 Delivery O2 Flow Rate FiO2 7/28/17 04:00 98.4 62 20 139/64 97 02/03/17 01:30 98.0 62 20 171/75 98 02/03/17 01:15 98.3 64 20 164/72 97 02/03/17 00:30 98.3 62 20 165/74 97 02/02/17 23:55 98.5 64 16 149/68 96 02/02/17 22:35 98.2 64 16 169/79 97 02/02/17 21:54 98.3 74 18 158/75 98 Room Air 02/02/17 21:39 98.3 73 18 166/77 96 Room Air 02/02/17 20:57 79 18 166/77 95 Room Air 02/02/17 19:44 63 18 184/81 96 Room Air 02/02/17 18:00 74 19 161/78 98 Room Air 02/02/17 16:43 99.5 78 16 154/85 95 Room Air I/O 02/02/17 02/02/17 02/02/17 02/03/17 02/03/17 02/03/17 07:00 15:00 23:00 07:00 15:00 23:00 Intake Total 0 ml Output Total 1100 ml Balance -1100 ml Intake Oral 0 ml Output Urine Total 1100 ml # Bowel Movements 0 Imaging Last Impressions Abdomen/Pelvis CT 02/02/17 0000 Signed Impressions: Service Date/Time: January 20:25 - CONCLUSION: 1. Mild constipation. No obstruction, free fluid or free air. 2. Previous cholecystectomy. No hydronephrosis. Previous kyphoplasty at T12-L1. Azeem Bragg MD Laboratory Test 02/02/17 02/02/17 17:00 20:00 White Blood Count 6.8 TH/MM3 Red Blood Count 2.76 MIL/MM3 Hemoglobin 7.4 GM/DL Hematocrit 23.4 % Mean Corpuscular Volume 84.8 FL Mean Corpuscular Hemoglobin 26.8 PG Mean Corpuscular Hemoglobin 31.6 % Concent Red Cell Distribution Width 14.7 % Platelet Count 201 TH/MM3 Mean Platelet Volume 9.0 FL Neutrophils (%) (Auto) 57.4 % Lymphocytes (%) (Auto) 27.8 % Monocytes (%) (Auto) 10.8 % Eosinophils (%) (Auto) 3.5 % Basophils (%) (Auto) 0.5 % Neutrophils # (Auto) 3.9 TH/MM3 Lymphocytes # (Auto) 1.9 TH/MM3 Monocytes # (Auto) 0.7 TH/MM3 Eosinophils # (Auto) 0.2 TH/MM3 Basophils # (Auto) 0.0 TH/MM3 CBC Comment DIFF FINAL Differential Comment Prothrombin Time 10.2 SEC Prothromb Time International 0.9 RATIO Ratio Activated Partial 22.2 SEC Thromboplast Time Sodium Level 140 MEQ/L Potassium Level 5.2 MEQ/L Chloride Level 111 MEQ/L Carbon Dioxide Level 24.6 MEQ/L Anion Gap 4 MEQ/L Blood Urea Nitrogen 38 MG/DL Creatinine 1.28 MG/DL Estimat Glomerular Filtration 48 ML/MIN Rate Random Glucose 90 MG/DL Calcium Level 9.1 MG/DL Total Bilirubin 0.2 MG/DL Aspartate Amino Transf 16 U/L (AST/SGOT) Alanine Aminotransferase 13 U/L (ALT/SGPT) Alkaline Phosphatase 61 U/L Total Protein 6.5 GM/DL Albumin 3.3 GM/DL Lipase 241 U/L Blood Type O POSITIVE O POSITIVE Antibody Screen NEGATIVE Crossmatch Leukocyte-Reduced Red Blood Cells Blood Bank Comment Physical Examination HEENT: normocephalic; atraumatic; no jaundice. NECK: Neck is supple, no JVD, no lymphadenopathy. CHEST: Chest is clear to auscultation and percussion. CARDIAC: Regular rate and rhythm with no murmur gallop or rubs. ABDOMEN: Soft, nondistended, lower abd tenderness; no hepatosplenomegaly; bowel sounds are present in all four quadrants. EXTREMITIES: No clubbing, cyanosis, or edema. SKIN: Normal; no rash; no jaundice. UNION CARPENTER: No focal deficits; alert and oriented times three. (Julienawi,José Miguelawavani CORRECTIONAL MANAGER) Assessment and Plan Plan - GI bleed, melena, anemia, heme (+) stools- black stools X 2 weeks, (+) for NSAIDs/ ASA. No previous hx of PUD Hgb of 7.4, received 2 units of blood, repeat labs pending. PPI - lower abd pain- Unclear etiology, possible constipation or musculoskeletal due to recent back injury and kyphoplasty Abdomen/Pelvis CT 02/02/17 1. Mild constipation. No obstruction, free fluid or free air. 2. Previous cholecystectomy. No hydronephrosis. Previous kyphoplasty at T12-L1 - history significant for type 2 diabetes, hypertension, history of CVA, congestive heart failure with AICD per attending Plan: - NPO - EGD today - Cont. PPI - Monitor hh - Transfuse as needed - If above negative, consider colonoscopy - Supportive care - Patient seen and examined by Dr. Murillo and myself and this note is written on his behalf. (Frederick Restrepo) Physician Comments Patient seen and examined Agree with above Continue with current supportive care Monitor labs Plan for an EGD today (Armando Murillo MD) Frederick Restrepo Feb 03, 2017 09:06 Armando Murillo MD Feb 03, 2017 12:56
[2017-02-03] MEDS: CARVEDILOL 6.25 MG TAB PO SCH ×2 (10:28→21:34)
[2017-02-03] MEDS: FUROSEMIDE 40 MG TAB PO SCH (10:28)
[2017-02-03] MEDS: LISINOPRIL 5 MG TAB PO SCH (10:28)
[2017-02-03 12:07] LABS: BICARBONATE 23.8 MEQ/L (21.0-32.0); POTASSIUM 4.5 MEQ/L (3.5-5.1)
[2017-02-03 12:10] LABS: AUTOMATED NEUTROPHIL # 4.2 TH/MM3 (1.8-7.7); BASOPHIL # 0.1 TH/MM3 (0-0.2); BASOPHIL % 1.3 % (0.0-2.0); EOSINOPHIL # 0.2 TH/MM3 (0-0.4); EOSINOPHIL % 2.6 % (0.0-4.0); HEMATOCRIT 27.1 % (35.0-46.0); HEMO FLAGS DIFF FINAL; LYMPH % 21.4 % (9.0-44.0); LYMPHOCYTE # 1.4 TH/MM3 (1.0-4.8); MEAN CELL VOLUME 82.8 FL (80.0-100.0); MEAN CORPUSCULAR HEMOGLOBIN 28.1 PG (27.0-34.0); MEAN CORPUSCULAR HGB CONC 33.9 % (32.0-36.0); MONO % 9.6 % (0.0-8.0); NEUT % 65.1 % (16.0-70.0); PLATELET COUNT 174 TH/MM3 (150-450); RED BLOOD COUNT 3.28 MIL/MM3 (4.00-5.30); RED CELL DISTRIBUTION WIDTH 15.7 % (11.6-17.2); WHITE BLOOD COUNT 6.5 TH/MM3 (4.0-11.0)
--- NOTE | 2017-02-03 12:13 | HHI.FPPN ---
Subjective Remarks Pt seen and examined this morning. Pt afebrile, vital signs stable. Pt reports feeling better after transfusion. She denies chest pain, shortness of breath. She endorses abdominal discomfort, worse in left lower quadrant. (Jessica Leong MD R2) Objective Vitals Vital Signs Date Time Temp Pulse Resp B/P Pulse Ox O2 Delivery O2 Flow Rate FiO2 02/03/17 04:00 98.4 62 20 139/64 97 02/03/17 01:30 98.0 62 20 171/75 98 02/03/17 01:15 98.3 64 20 164/72 97 02/03/17 00:30 98.3 62 20 165/74 97 02/02/17 23:55 98.5 64 16 149/68 96 02/02/17 22:35 98.2 64 16 169/79 97 02/02/17 21:54 98.3 74 18 158/75 98 Room Air 02/02/17 21:39 98.3 73 18 166/77 96 Room Air 02/02/17 20:57 79 18 166/77 95 Room Air 02/02/17 19:44 63 18 184/81 96 Room Air 02/02/17 18:00 74 19 161/78 98 Room Air 02/02/17 16:43 99.5 78 16 154/85 95 Room Air I/O 02/02/17 02/02/17 02/02/17 02/03/17 02/03/17 02/03/17 07:00 15:00 23:00 07:00 15:00 23:00 Intake Total 0 ml Output Total 1100 ml Balance -1100 ml Intake Oral 0 ml Output Urine Total 1100 ml # Bowel Movements 0 (Jessica Leong MD R2) Result Diagram: 02/03/17 1117 02/03/17 1117 Objective Remarks GENERAL: This is a well-nourished, well-developed patient, in no apparent distress, lying in bed sleeping comfortably followed receiving blood transfusion. SKIN: No rashes, ecchymoses or lesions. Cool and dry. HEENT: Atraumatic. Normocephalic. No temporal or scalp tenderness. Pupils equal round and reactive. Extraocular motions intact. No scleral icterus. No injection or drainage. Arcus senilis. Nose without bleeding, purulent drainage. Uvula midline. Airway patent. NECK: Trachea midline. No JVD or lymphadenopathy. Supple, nontender, no meningeal signs. CARDIOVASCULAR: Regular rate and rhythm. RESPIRATORY: Clear to auscultation. Breath sounds equal bilaterally. No wheezes , rales, or rhonchi. GASTROINTESTINAL: Abdomen soft, mild diffuse abdominal discomfort, nondistended. No guarding. MUSCULOSKELETAL: Extremities without clubbing, cyanosis, or edema. NEUROLOGICAL: Awake and alert. (Jessica Leong MD R2) A/P Assessment and Plan This is a 86-year-old -[place] female with extensive past medical history significant for type 2 diabetes, hypertension, history of CVA, congestive heart failure with AICD. Admitted hospital for GI bleed Discharge Planning Anticipate discharge once H&H is stable and patient is cleared by GI. (Jessica Leong MD R2) Attending Attestation Patient seen and examined. Case reviewed and discussed with the resident team. Agree with plan of care as discussed with me and documented in the resident note. (Edis Schmitt MD) Problem List: (1) GI bleeding Status: Acute Plan: Patient found to have positive Hemoccult 2 once in the PCPs office and once in the ED. Outpatient hemoglobin/hematocrit was 8.0/25.5 respectively. In the ED her hemoglobin and hematocrit was 7.4/23.4 respectively. Pt transfused 2 units of packed red blood cells. * GI consulted, appreciate recommendations and intervention * Patient currently NPO in anticipation of EGD * Protonix drip * Continue to monitor H&H, currently stable at 9.2 and 27.1 (2) Diabetes mellitus Status: Chronic Plan: Patient with a history of type 2 diabetes * Holding home metformin * Blood glucose checks per protocol * Low-dose insulin sliding scale (3) Hypertension Status: Chronic Plan: Long-standing history of hypertension * Continue home medications of carvedilol * Continue home medication of Lasix * Continue home medication of Imdur * Continue home medication of lisinopril * Monitor blood pressure while in the hospital (4) Chronic congestive heart failure Status: Chronic Plan: Patient with history of chronic congestive heart failure, status post AICD. * We'll monitor her vitals she is in the hospital. * We'll monitor for fluid overload while she is in the hospital. * See hypertension plan above (5) COPD (chronic obstructive pulmonary disease) Status: Chronic Plan: She has a long-standing history of COPD. * Continue home medication of albuterol * Continue home medications Symbicort (6) Nutrition, metabolism, and development symptoms Status: Acute Plan: Diet: Nothing by mouth Fluids: NS at 84 MLS per hour (half maintenance due to concern for fluid overload with history of congestive heart failure) Monitor electrolytes and replace accordingly DVT prophylaxis: Holding pharmacological prophylaxis due to GI bleed, we'll use SCDs GI prophylaxis: Protonix drip CODE STATUS: Full code (Jessica Leong MD R2) Problem Qualifiers (1) GI bleeding: Qualified Code: K92.2 - Gastrointestinal hemorrhage, unspecified gastrointestinal hemorrhage type (2) Diabetes mellitus: Qualified Code: E11.8 - Type 2 diabetes mellitus with complication, without long-term current use of insulin (3) Hypertension: Qualified Code: I10 - Essential hypertension Jessica Leong MD R2 Feb 03, 2017 12:13 Edis Schmitt MD Feb 03, 2017 16:10
[2017-02-03] MEDS ORDERED: PROPOFOL 200 MG/20 ML AMP IV ONE (13:20)
--- NOTE | 2017-02-03 13:30 | PD.PROCEDR ---
GI Procedure REFERRING PHYSICIAN Derrick PROCEDURE PERFORMED EGD with biopsy INDICATION FOR PROCEDURE Melena, anemia PROCEDURE: The procedure, risks and benefits were discussed with Ms. Davis and informed consent was obtained. Anesthesia sedated her with Diprivan. She was placed in the left lateral decubitus position. EGD: The Pentax videoscope was introduced through the oropharynx and advanced to the second portion of the duodenum under direct visualization. Retroflexion was performed in the stomach. FINDINGS: Esophagus this was normal Stomach there was punctate patchy erythema in the antrum with superficial erosions this was biopsied otherwise the gastric mucosa was unremarkable Duodenum this was normal ESTIMATED BLOOD LOSS: None SPECIMENS REMOVED: Antrum COMPLICATIONS: None IMPRESSION: Erosive gastritis PLAN: Await biopsy Continue PPI Avoid NSAIDs and aspirin Monitor labs Armando Murillo MD Feb 03, 2017 13:30
[2017-02-03] MEDS ORDERED: DO NOT ADM ANY ANTICOAGULANT DRUGS PRN (13:31)
[2017-02-04] VITALS (8 sets, daily range): BP systolic 118–143; BP diastolic 63–86; PULSE 61–79; RESP 16–18; TEMP 98.4–99.3; O2SAT 94–97
[2017-02-04] MEDS: PANTOPRAZOLE INJ 80 MG in SODIUM CHLORIDE 0.9% INJ 100 ML IV SCH (01:05)
[2017-02-04] MEDS: SODIUM CHLOR 0.9% 1000 ML INJ 1,000 ML IV SCH (04:47)
[2017-02-04] MEDS: INSULIN ASPART SUPPLEMENTAL SCALE SQ SCH ×4 (05:26→20:13)
[2017-02-04 08:21] LABS: HEMATOCRIT 23.9 % (35.0-46.0); MEAN CELL VOLUME 83.3 FL (80.0-100.0); MEAN CORPUSCULAR HGB CONC 33.6 % (32.0-36.0); PLATELET COUNT 168 TH/MM3 (150-450); RED BLOOD COUNT 2.87 MIL/MM3 (4.00-5.30); RED CELL DISTRIBUTION WIDTH 15.9 % (11.6-17.2); REVIEW FLAG FINAL; WHITE BLOOD COUNT 6.1 TH/MM3 (4.0-11.0)
[2017-02-04 08:33] LABS: BICARBONATE 25.8 MEQ/L (21.0-32.0); POTASSIUM 4.2 MEQ/L (3.5-5.1)
--- NOTE | 2017-02-04 09:01 | HHI.FPPN ---
Subjective Remarks Patient seen and examined this morning. She reports feeling well overall. She denies chest pain, shortness of breath. Abdominal discomfort is stable. She has not yet had a bowel movement. She had an EGD done yesterday that was significant for erosive gastritis. No bleeding source identified. Patient ate dinner last night without any complications or worsening of abdominal pain. She denies nausea, vomiting, lower extremity edema. Patient denies any bleeding , black/bloody stools. Update: Pt had a black, tarry bowel movement. Patient to be transferred 2 units of packed red blood cells. Objective Vitals Vital Signs Date Time Temp Pulse Resp B/P Pulse Ox O2 Delivery O2 Flow Rate FiO2 02/04/17 04:27 98.4 74 16 143/65 97 02/03/17 23:54 98.1 74 16 143/67 94 02/03/17 20:00 Room Air 02/03/17 19:54 98.6 77 16 149/73 94 02/03/17 16:00 98.0 60 18 122/58 96 02/03/17 14:00 75 16 140/60 100 02/03/17 13:45 70 20 138/71 100 Nasal Cannula 2 02/03/17 13:32 98.1 78 16 108/61 99 02/03/17 12:00 98.8 72 18 121/65 98 I/O 02/03/17 02/03/17 02/03/17 02/04/17 02/04/17 02/04/17 06:59 14:59 22:59 06:59 14:59 22:59 Intake Total 0 ml 400 ml 528 ml 240 ml Output Total 1100 ml 900 ml 1000 ml 600 ml Balance -1100 ml -500 ml -472 ml -360 ml Intake Oral 0 ml 480 ml 240 ml IV Total 48 ml Other 400 ml Output Urine Total 1100 ml 900 ml 1000 ml 600 ml # Bowel Movements 0 0 0 Result Diagram: 02/04/17 0735 02/04/17 0735 Objective Remarks GENERAL: This is a well-nourished, well-developed patient, in no apparent distress, lying in bed. SKIN: No rashes, ecchymoses or lesions. Cool and dry. HEENT: Atraumatic. Normocephalic. No temporal or scalp tenderness. Pupils equal round and reactive. Extraocular motions intact. No scleral icterus. No injection or drainage. Arcus senilis. Nose without bleeding, purulent drainage. Uvula midline. Airway patent. NECK: Trachea midline. No JVD or lymphadenopathy. Supple, nontender, no meningeal signs. CARDIOVASCULAR: Regular rate and rhythm. RESPIRATORY: Clear to auscultation. Breath sounds equal bilaterally. No wheezes , rales, or rhonchi. GASTROINTESTINAL: Abdomen soft, mild diffuse abdominal discomfort, worse in left lower quadrant, nondistended. No guarding. MUSCULOSKELETAL: Extremities without clubbing, cyanosis, or edema. NEUROLOGICAL: Awake and alert. A/P Assessment and Plan This is a 86-year-old -[place] female with extensive past medical history significant for type 2 diabetes, hypertension, history of CVA, congestive heart failure with AICD. Admitted hospital for GI bleed. Discharge Planning Anticipate discharge once H&H is stable and patient is cleared by GI. Problem List: (1) GI bleeding Status: Acute Plan: Patient found to have positive Hemoccult 2 once in the PCPs office and once in the ED. Outpatient hemoglobin/hematocrit was 8.0/25.5 respectively. In the ED her hemoglobin and hematocrit was 7.4/23.4 respectively. Pt transfused 2 units of packed red blood cells. Hemoglobin this morning decreased from 9.2 yesterday to 8.0. * GI consulted, appreciate recommendations and intervention * Patient status post EGD on 02/03. Findings were significant for erosive gastritis. No bleeding source identified. Biopsy taken in the antrum, results pending. * Patient tolerating a normal diet * Protonix * Continue to monitor H&H (2) Diabetes mellitus Status: Chronic Plan: Patient with a history of type 2 diabetes * Holding home metformin * Blood glucose checks per protocol * Low-dose insulin sliding scale (3) Hypertension Status: Chronic Plan: Long-standing history of hypertension * Continue home medications of carvedilol * Continue home medication of Lasix * Continue home medication of Imdur * Continue home medication of lisinopril * Monitor blood pressure while in the hospital (4) Chronic congestive heart failure Status: Chronic Plan: Patient with history of chronic congestive heart failure, status post AICD. * Continue to monitor vitals * Avoid excess fluids * See hypertension plan above (5) COPD (chronic obstructive pulmonary disease) Status: Chronic Plan: She has a long-standing history of COPD. * Continue home medication of albuterol * Continue home medications Symbicort (6) Nutrition, metabolism, and development symptoms Status: Acute Plan: Diet: Heart healthy diet Fluids: None, patient currently tolerating by mouth Monitor electrolytes and replace accordingly DVT prophylaxis: Holding pharmacological prophylaxis due to GI bleed, we'll use SCDs GI prophylaxis: Protonix CODE STATUS: Full code Problem Qualifiers (1) GI bleeding: Qualified Code: K92.2 - Gastrointestinal hemorrhage, unspecified gastrointestinal hemorrhage type (2) Diabetes mellitus: Qualified Code: E11.8 - Type 2 diabetes mellitus with complication, without long-term current use of insulin (3) Hypertension: Qualified Code: I10 - Essential hypertension Jessica Leong MD R2 Feb 04, 2017 09:01
[2017-02-04] MEDS: LISINOPRIL 5 MG TAB PO SCH (09:15)
[2017-02-04] MEDS: CARVEDILOL 6.25 MG TAB PO SCH ×2 (09:15→20:06)
[2017-02-04] MEDS: FUROSEMIDE 40 MG TAB PO SCH (09:15)
[2017-02-04] MEDS: BUDESONIDE-FORMOTEROL 80/4.5 MCG INHALER INH SCH ×2 (09:18→20:06)
[2017-02-04] MEDS: DOCUSATE SODIUM 50 MG/SENNA 8.6 MG TAB PO SCH ×2 (09:22→20:06)
[2017-02-04] MEDS ORDERED: MAGNESIUM HYDROXIDE SUSP 30 ML CUP PO PRN (09:30)
[2017-02-04] MEDS: PANTOPRAZOLE SOD 40 MG DELAYED RELEASE TAB PO SCH (10:19)
[2017-02-04] MEDS: SODIUM CHLORIDE 0.9% FLUSH 10 ML FLUSH IV FLUSH SCH ×2 (10:20→20:07)
--- NOTE | 2017-02-04 10:44 | HHI.GIFU ---
Subjective Remarks Patient in the bathroom washing up, had black tarry BM this morning, no other associated symptoms (Amawi,Khawla BROACH TROUBLE SHOOTER) Objective Vitals I&O Vital Signs Date Time Temp Pulse Resp B/P Pulse Ox O2 Delivery O2 Flow Rate FiO2 02/04/17 08:05 98.6 79 18 140/74 97 02/04/17 04:27 98.4 74 16 143/65 97 02/03/17 23:54 98.1 74 16 143/67 94 02/03/17 20:00 Room Air 02/03/17 19:54 98.6 77 16 149/73 94 02/03/17 16:00 98.0 60 18 122/58 96 02/03/17 14:00 75 16 140/60 100 02/03/17 13:45 70 20 138/71 100 Nasal Cannula 2 02/03/17 13:32 98.1 78 16 108/61 99 02/03/17 12:00 98.8 72 18 121/65 98 I/O 02/03/17 02/03/17 02/03/17 02/04/17 02/04/17 02/04/17 06:59 14:59 22:59 06:59 14:59 22:59 Intake Total 0 ml 400 ml 528 ml 240 ml Output Total 1100 ml 900 ml 1000 ml 600 ml Balance -1100 ml -500 ml -472 ml -360 ml Intake Oral 0 ml 480 ml 240 ml IV Total 48 ml Other 400 ml Output Urine Total 1100 ml 900 ml 1000 ml 600 ml # Bowel Movements 0 0 0 Laboratory Laboratory Tests Test 02/03/17 02/04/17 11:17 07:35 White Blood Count 6.5 6.1 Red Blood Count 3.28 2.87 Hemoglobin 9.2 8.0 Hematocrit 27.1 23.9 Mean Corpuscular Volume 82.8 83.3 Mean Corpuscular Hemoglobin 28.1 28.0 Mean Corpuscular Hemoglobin 33.9 33.6 Concent Red Cell Distribution Width 15.7 15.9 Platelet Count 174 168 Mean Platelet Volume 9.9 9.2 Neutrophils (%) (Auto) 65.1 Lymphocytes (%) (Auto) 21.4 Monocytes (%) (Auto) 9.6 Eosinophils (%) (Auto) 2.6 Basophils (%) (Auto) 1.3 Neutrophils # (Auto) 4.2 Lymphocytes # (Auto) 1.4 Monocytes # (Auto) 0.6 Eosinophils # (Auto) 0.2 Basophils # (Auto) 0.1 CBC Comment DIFF FINAL Differential Comment Sodium Level 143 143 Potassium Level 4.5 4.2 Chloride Level 111 111 Carbon Dioxide Level 23.8 25.8 Anion Gap 8 6 Blood Urea Nitrogen 33 32 Creatinine 1.10 1.06 Estimat Glomerular Filtration 57 59 Rate Random Glucose 86 91 Calcium Level 8.6 8.3 Imaging Last Impressions Abdomen/Pelvis CT 02/02/17 0000 Signed Impressions: Service Date/Time: January 20:25 - CONCLUSION: 1. Mild constipation. No obstruction, free fluid or free air. 2. Previous cholecystectomy. No hydronephrosis. Previous kyphoplasty at T12-L1. Azeem Bragg MD Physical Exam HEENT: normocephalic; atraumatic; no jaundice. NECK: Neck is supple, no JVD, no lymphadenopathy. CHEST: Chest is clear to auscultation and percussion. CARDIAC: Regular rate and rhythm with no murmur gallop or rubs. ABDOMEN: Soft, nondistended, nontender; no hepatosplenomegaly; bowel sounds are present in all four quadrants. EXTREMITIES: No clubbing, cyanosis, or edema. SKIN: Normal; no rash; no jaundice. [employer]LL[employer]PERATOR: No focal deficits; alert and oriented times three. (Frederick Restrepo BROACH TROUBLE SHOOTER) Assessment and Plan Plan - GI bleed, melena, anemia, heme (+) stools- black stools X 2 weeks, (+) for NSAIDs/ ASA. No previous hx of PUD S/P EGD on (01/2817)---> erosive esophagitis, Stomach there was punctate patchy erythema in the antrum with superficial erosions this was biopsied otherwise the gastric mucosa was unremarkable, Duodenum this was normal, Bx pending Black tarry BM this morning, drop in hgb today, 8, was 9.2 yesterday - lower abd pain- improving. Unclear etiology, possible constipation or musculoskeletal due to recent back injury and kyphoplasty Abdomen/Pelvis CT 02/02/17 1. Mild constipation. No obstruction, free fluid or free air. 2. Previous cholecystectomy. No hydronephrosis. Previous kyphoplasty at T12-L1 - history significant for type 2 diabetes, hypertension, history of CVA, congestive heart failure with AICD per attending Plan: - DAVEY - Await bx - Transfuse 2 units of blood - Cont. PPI - Monitor hh - consider colonoscopy - Supportive care - Patient seen and examined by Dr. Murillo and myself and this note is written on his behalf. (Frederick Restrepo) Physician Comments Patient seen and examined Agree with above Continue with current supportive care Monitor labs Stable with no active bleeding Continue PPI Avoid NSAIDs and aspirin We will sign off (Armando Murillo MD) Frederick Restrepo Feb 04, 2017 10:43 Armando Murillo MD Feb 04, 2017 19:04
[2017-02-04] MEDS ORDERED: SODIUM CHLOR 0.9% 250 ML INJ 250 ML IV ONE (10:45)
[2017-02-04 15:38] LABS: HEMATOCRIT 26.4 % (35.0-46.0); REVIEW FLAG FINAL
[2017-02-05] VITALS (10 sets, daily range): BP systolic 115–165; BP diastolic 54–72; PULSE 61–85; RESP 16–20; TEMP 97.7–99.3; O2SAT 93–98
[2017-02-05] MEDS: INSULIN ASPART SUPPLEMENTAL SCALE SQ SCH ×4 (06:19→21:00)
[2017-02-05] MEDS: ISOSORBIDE MONONITRATE 30 MG TAB PO SCH (06:20)
[2017-02-05] MEDS: DOCUSATE SODIUM 50 MG/SENNA 8.6 MG TAB PO SCH ×2 (09:34→21:00)
[2017-02-05] MEDS: CARVEDILOL 6.25 MG TAB PO SCH ×2 (09:34→21:08)
[2017-02-05] MEDS: SODIUM CHLORIDE 0.9% FLUSH 10 ML FLUSH IV FLUSH SCH ×2 (09:34→21:08)
[2017-02-05] MEDS: PANTOPRAZOLE SOD 40 MG DELAYED RELEASE TAB PO SCH (09:34)
[2017-02-05] MEDS: FUROSEMIDE 40 MG TAB PO SCH (09:34)
[2017-02-05] MEDS: BUDESONIDE-FORMOTEROL 80/4.5 MCG INHALER INH SCH ×2 (09:34→21:08)
[2017-02-05] MEDS: LISINOPRIL 5 MG TAB PO SCH (09:34)
--- NOTE | 2017-02-05 10:44 | HHI.FPPN ---
Subjective Remarks Patient seen and examined this morning. Patient states that she is feeling much better after receiving the transfusion yesterday. She has not had a bowel movement since yesterday morning, which was dark black in color and tarry. No abdominal pain at this time. No other complaints of nausea, vomiting, fever, chills, chest pain, shortness of breath, abdominal pain, change in bowel habits , change in urinary habits. Objective Vitals Vital Signs Date Time Temp Pulse Resp B/P Pulse Ox O2 Delivery O2 Flow Rate FiO2 02/05/17 08:00 98.4 85 20 121/62 97 02/05/17 05:04 97.8 61 18 165/72 94 02/05/17 04:00 97.8 61 18 165/72 94 02/05/17 02:30 97.7 71 17 145/67 97 02/05/17 02:15 98.4 81 16 139/65 96 02/05/17 00:00 98.3 67 18 116/54 96 02/04/17 21:00 99.0 74 16 128/80 97 02/04/17 21:00 61 02/04/17 20:00 98.6 73 18 138/63 94 02/04/17 17:00 99.1 70 18 118/81 96 02/04/17 16:45 98.9 77 18 134/76 96 02/04/17 16:05 98.9 77 18 134/76 96 02/04/17 12:05 99.3 76 18 131/86 96 I/O 02/04/17 02/04/17 02/04/17 02/05/17 02/05/17 02/05/17 07:00 15:00 23:00 07:00 15:00 23:00 Intake Total 240 ml 320 ml 480 ml 0 ml Output Total 600 ml 0 ml 0 ml Balance -360 ml 320 ml 480 ml 0 ml Intake Oral 240 ml 320 ml 480 ml 0 ml Output Urine Total 600 ml 0 ml Stool Total 0 ml # Voids 4 1 # Bowel Movements 0 0 0 Result Diagram: 02/04/17 1505 02/04/17 0735 Objective Remarks GENERAL: This is a well-nourished, well-developed patient, in no apparent distress, sitting in bed. SKIN: No rashes, ecchymoses or lesions. Cool and dry. HEENT: Atraumatic. Normocephalic. No temporal or scalp tenderness. Pupils equal round and reactive. Extraocular motions intact. No scleral icterus. No injection or drainage. Arcus senilis. Nose without bleeding, purulent drainage. Uvula midline. Airway patent. NECK: Trachea midline. No JVD or lymphadenopathy. Supple, nontender, no meningeal signs. CARDIOVASCULAR: Regular rate and rhythm. RESPIRATORY: Clear to auscultation. Breath sounds equal bilaterally. No wheezes , rales, or rhonchi. GASTROINTESTINAL: Abdomen soft, mild abdominal tenderness in lower quadrants, worse in left lower quadrant, nondistended. No guarding. MUSCULOSKELETAL: Extremities without clubbing, cyanosis, or edema. NEUROLOGICAL: Awake and alert. Medications and IVs Current Medications Medications (Trade) Dose Ordered Sig/Michael Route Start Time Stop Time Status Last Admin (NS Flush) 2 ml UNSCH PRN IV FLUSH 02/02/17 21:00 (NS Flush) 2 ml BID IV FLUSH 02/02/17 21:00 02/05/17 09:34 (Narcan Inj) 0.4 mg UNSCH PRN IV 02/02/17 21:00 (Symbicort 80-4.5 Mcg Inh) 2 puff BID INH 02/03/17 09:00 02/05/17 09:34 (Coreg) 6.25 mg BID PO 02/03/17 09:00 02/05/17 09:34 (Lasix) 40 mg DAILY PO 02/03/17 09:00 02/05/17 09:34 (Imdur) 30 mg DAILY@07 PO 02/03/17 07:00 02/05/17 06:20 (Prinivil) 5 mg DAILY PO 02/03/17 09:00 02/05/17 09:34 (D50w (Vial) Inj) 50 ml UNSCH PRN IV 02/03/17 04:30 (Glucagon Inj) 1 mg UNSCH PRN OTHER 02/03/17 04:30 (Ventolin Hfa Inh) 2 puff Q4H PRN INH 02/03/17 04:45 (Lucrecia-Colace) 1 tab BID PO 02/04/17 10:00 02/05/17 09:34 (Protonix) 40 mg DAILY PO 02/04/17 09:30 02/05/17 09:34 (Milk Of Magnesia Liq) 30 ml DAILY PRN PO 02/04/17 09:30 A/P Assessment and Plan This is a 86-year-old -[place] female with extensive past medical history significant for type 2 diabetes, hypertension, history of CVA, congestive heart failure with AICD. Admitted hospital for GI bleed. Discharge Planning Anticipate discharge once H&H is stable and patient is cleared by GI. Problem List: (1) GI bleeding Status: Acute Plan: Patient found to have positive Hemoccult 2 once in the PCPs office and once in the ED. Outpatient hemoglobin/hematocrit was 8.0/25.5 respectively. In the ED her hemoglobin and hematocrit was 7.4/23.4 respectively. Pt transfused 2 units of packed red blood cells. Hemoglobin 8.6 yesterday s/p transfusion x2 prbc after being 8.0 in the morning. * GI signed off * Patient status post EGD on 02/03. Findings were significant for erosive gastritis. No bleeding source identified. Biopsy taken in the antrum, results pending. * Patient tolerating a normal diet * Protonix * Continue to monitor H&H * Avoid ASA and NSAIDS * Monitor for next BM (2) Diabetes mellitus Status: Chronic Plan: Patient with a history of type 2 diabetes * Holding home metformin * Blood glucose checks per protocol * Low-dose insulin sliding scale (3) Hypertension Status: Chronic Plan: Long-standing history of hypertension * Continue home medications of carvedilol * Continue home medication of Lasix * Continue home medication of Imdur * Continue home medication of lisinopril * Monitor blood pressure while in the hospital (4) Chronic congestive heart failure Status: Chronic Plan: Patient with history of chronic congestive heart failure, status post AICD. * Continue to monitor vitals * Avoid excess fluids * See hypertension plan above (5) COPD (chronic obstructive pulmonary disease) Status: Chronic Plan: She has a long-standing history of COPD. * Continue home medication of albuterol * Continue home medications Symbicort (6) Nutrition, metabolism, and development symptoms Status: Acute Plan: Diet: Heart healthy diet Fluids: None, patient currently tolerating by mouth Monitor electrolytes and replace accordingly DVT prophylaxis: Holding pharmacological prophylaxis due to GI bleed, we'll use SCDs GI prophylaxis: Protonix CODE STATUS: Full code Problem Qualifiers (1) GI bleeding: Qualified Code: K92.2 - Gastrointestinal hemorrhage, unspecified gastrointestinal hemorrhage type (2) Diabetes mellitus: Qualified Code: E11.8 - Type 2 diabetes mellitus with complication, without long-term current use of insulin (3) Hypertension: Qualified Code: I10 - Essential hypertension Ferny Kim MD R1 Feb 05, 2017 10:44
[2017-02-05 13:39] LABS: HEMATOCRIT 31.2 % (35.0-46.0); REVIEW FLAG FINAL
[2017-02-05] MEDS ORDERED: POTASSIUM CHLORIDE 20 MEQ CONTROLLED RELEASE TAB PO ONE (14:00)
[2017-02-05 22:44] LABS: BICARBONATE 26.7 MEQ/L (21.0-32.0); POTASSIUM 4.1 MEQ/L (3.5-5.1)
[2017-02-06] VITALS: BP 139/65; PULSE 66; RESP 18; TEMP 98.3; O2SAT 96
[2017-02-06] MEDS ORDERED: ACETAMINOPHEN 325 MG TAB PO PRN (03:15)
[2017-02-06 04:00] VITALS: BP 157/68; PULSE 65; RESP 18; TEMP 98.4; O2SAT 95
[2017-02-06] MEDS: INSULIN ASPART SUPPLEMENTAL SCALE SQ SCH ×2 (06:50→11:00)
[2017-02-06] MEDS: ISOSORBIDE MONONITRATE 30 MG TAB PO SCH (06:53)
[2017-02-06 07:54] LABS: HEMATOCRIT 32.6 % (35.0-46.0); MEAN CELL VOLUME 84.3 FL (80.0-100.0); MEAN CORPUSCULAR HEMOGLOBIN 27.4 PG (27.0-34.0); MEAN CORPUSCULAR HGB CONC 32.5 % (32.0-36.0); PLATELET COUNT 199 TH/MM3 (150-450); RED BLOOD COUNT 3.87 MIL/MM3 (4.00-5.30); RED CELL DISTRIBUTION WIDTH 16.6 % (11.6-17.2); REVIEW FLAG FINAL; WHITE BLOOD COUNT 5.2 TH/MM3 (4.0-11.0)
[2017-02-06 08:00] VITALS: BP 116/59; PULSE 80; PULSE 86; RESP 20; TEMP 98.3; O2SAT 96
[2017-02-06 08:18] LABS: BICARBONATE 29.6 MEQ/L (21.0-32.0); POTASSIUM 4.1 MEQ/L (3.5-5.1)
--- NOTE | 2017-02-06 09:37 | HHI.FPPN ---
Subjective Remarks Pt seen and examined this morning. No acute events overnight. AFVSS. Pt reports feeling better this morning. Pt reports light brown stools, stools are not black or bloody. Denies any bleeding. No abdominal pain, this has improved. She is eating and drinking well, no nausea or vomiting. She has no other acute concerns. Objective Vitals Vital Signs Date Time Temp Pulse Resp B/P Pulse Ox O2 Delivery O2 Flow Rate FiO2 02/06/17 04:00 98.4 65 18 157/68 95 02/06/17 00:00 98.3 66 18 139/65 96 02/05/17 20:00 98.9 77 18 124/65 98 02/05/17 20:00 72 02/05/17 16:00 99.3 74 20 130/68 97 02/05/17 12:00 98.4 75 20 115/67 93 02/05/17 09:43 71 I/O 02/05/17 02/05/17 02/05/17 02/06/17 02/06/17 02/06/17 07:00 15:00 23:00 07:00 15:00 23:00 Intake Total 0 ml 240 ml 0 ml 240 ml Output Total 0 ml Balance 0 ml 240 ml 0 ml 240 ml Intake Oral 0 ml 240 ml 0 ml 240 ml Output Urine Total 0 ml # Voids 7 1 1 # Bowel Movements 1 1 Result Diagram: 02/06/1771802/06/17718 Objective Remarks GENERAL: This is a well-nourished, well-developed patient, in no apparent distress, sitting in bed. SKIN: No rashes, ecchymoses or lesions. Cool and dry. HEENT: Atraumatic. Normocephalic. No temporal or scalp tenderness. Pupils equal round and reactive. Extraocular motions intact. No scleral icterus. No injection or drainage. Arcus senilis. Nose without bleeding, purulent drainage. Uvula midline. Airway patent. NECK: Trachea midline. No JVD or lymphadenopathy. Supple, nontender, no meningeal signs. CARDIOVASCULAR: Regular rate and rhythm. RESPIRATORY: Clear to auscultation. Breath sounds equal bilaterally. No wheezes , rales, or rhonchi. GASTROINTESTINAL: Abdomen soft, non-tender, nondistended. No guarding. MUSCULOSKELETAL: Extremities without clubbing, cyanosis, or edema. NEUROLOGICAL: Awake and alert. A/P Assessment and Plan This is a 86-year-old -[place] female with extensive past medical history significant for type 2 diabetes, hypertension, history of CVA, congestive heart failure with AICD. Admitted hospital for GI bleed. Discharge Planning Anticipate discharge later today. Problem List: (1) GI bleeding Status: Acute Plan: Patient found to have positive Hemoccult 2 once in the PCPs office and once in the ED. Outpatient hemoglobin/hematocrit was 8.0/25.5 respectively. In the ED her hemoglobin and hematocrit was 7.4/23.4 respectively. Pt transfused total of 4 units of packed red blood cells. H&H stable this morning, no new bleeding. * GI signed off * Patient status post EGD on 02/03. Findings were significant for erosive gastritis. No bleeding source identified. Biopsy taken in the antrum, results pending. * Patient tolerating a normal diet * Protonix * Continue to monitor H&H * Avoid ASA and NSAIDS (2) Diabetes mellitus Status: Chronic Plan: Patient with a history of type 2 diabetes * Holding home metformin * Blood glucose checks per protocol * Low-dose insulin sliding scale (3) Hypertension Status: Chronic Plan: Long-standing history of hypertension * Continue home medications of carvedilol * Continue home medication of Lasix * Continue home medication of Imdur * Continue home medication of lisinopril * Monitor blood pressure while in the hospital (4) Chronic congestive heart failure Status: Chronic Plan: Patient with history of chronic congestive heart failure, status post AICD. * Continue to monitor vitals * Avoid excess fluids * See hypertension plan above (5) COPD (chronic obstructive pulmonary disease) Status: Chronic Plan: She has a long-standing history of COPD. * Continue home medication of albuterol * Continue home medications Symbicort (6) Nutrition, metabolism, and development symptoms Status: Acute Plan: Diet: Heart healthy diet Fluids: None, patient currently tolerating by mouth Monitor electrolytes and replace accordingly DVT prophylaxis: Holding pharmacological prophylaxis due to GI bleed, we'll use SCDs GI prophylaxis: Protonix CODE STATUS: Full code Problem Qualifiers (1) GI bleeding: Qualified Code: K92.2 - Gastrointestinal hemorrhage, unspecified gastrointestinal hemorrhage type (2) Diabetes mellitus: Qualified Code: E11.8 - Type 2 diabetes mellitus with complication, without long-term current use of insulin (3) Hypertension: Qualified Code: I10 - Essential hypertension Jessica Leong MD R2 Feb 06, 2017 09:37
[2017-02-06] MEDS ORDERED: PANT40TA3 PO (09:47)
--- NOTE | 2017-02-06 09:55 | HHI.FF ---
Face to Face Verification Diagnosis: (1) Diabetes mellitus type 2 (2) CHF (congestive heart failure) (3) GI bleeding (4) Hypertension Home Health Nursing Order: Medical education Signs/symptoms of disease process Nursing assessment with vital signs I have seen patient Tess Davis on 02/06/17. My clinical findings support the need for the requested home health care services because: Patient has SOB Deconditioned w/ increased weakness Limited ability to care for self High risk of falls I certify that my clinical findings support that this patient is homebound because: Hx COPD- exertion dyspnea/weakness Unsteady gait/balance Jessica Leong MD R2 Feb 06, 2017 09:55
[2017-02-06] MEDS: LISINOPRIL 5 MG TAB PO SCH (10:00)
[2017-02-06] MEDS: FUROSEMIDE 40 MG TAB PO SCH (10:00)
[2017-02-06] MEDS: DOCUSATE SODIUM 50 MG/SENNA 8.6 MG TAB PO SCH (10:00)
[2017-02-06] MEDS: CARVEDILOL 6.25 MG TAB PO SCH (10:00)
[2017-02-06] MEDS: PANTOPRAZOLE SOD 40 MG DELAYED RELEASE TAB PO SCH (10:00)
[2017-02-06] MEDS: SODIUM CHLORIDE 0.9% FLUSH 10 ML FLUSH IV FLUSH SCH (10:04)
[2017-02-06 12:00] VITALS: BP 111/57; PULSE 72; RESP 20; TEMP 98.3; O2SAT 96
== END 2017-02-06 15:30 | disposition home or self-care (01) | DRG 379 ==
LOC: NEPC 16:41 → NEDA 20:31 → N04B 22:23
PROVIDERS: ADMIT Family Medicine; ATTEND Family Medicine
PROC: 30253N1 (ICD-10-PCS; 2017-02-03)
PROC: 0DB68ZX Excision of Stomach, Via Natural or Artificial Opening Endoscopic, Diagnostic (ICD-10-PCS; principal; 2017-02-03 13:13)
DX: K92.1 Melena (principal); I11.0 Hypertensive heart disease with heart failure; I50.9 Heart failure, unspecified; E11.8 Type 2 diabetes mellitus with unspecified complications; J44.9 Chronic obstructive pulmonary disease, unspecified; D64.9 Anemia, unspecified; Z95.810 Presence of automatic (implantable) cardiac defibrillator; Z86.73 Personal history of transient ischemic attack (TIA), and cerebral infarction without residual deficits; K21.9 Gastro-esophageal reflux disease without esophagitis; R51 Headache; F32.9 Major depressive disorder, single episode, unspecified; I25.10 Atherosclerotic heart disease of native coronary artery without angina pectoris; K59.00 Constipation, unspecified; E78.00 Pure hypercholesterolemia, unspecified; I25.2 Old myocardial infarction; K29.60 Other gastritis without bleeding; Z79.82 Long term (current) use of aspirin; Z87.891 Personal history of nicotine dependence; H91.90 Unspecified hearing loss, unspecified ear
CPT/HCPCS: 36430; 74177; 80048; 80053; 82948; 83690; 85014; 85018; 85025; 85027; 85610; 85730; 86850; 86900; 86901; 86920; 88305; 88312; C9113; J1815; J1940; J7030; J7050; P9016; Q9967

== ENCOUNTER 2017-03-21 08:51 | Inpatient (IN) | payer MEDICARE, OTHER ==
[~2017-03-21] VITALS: Ht 160 cm; Wt 87.2 kg
[2017-03-21] VITALS (14 sets, daily range): BP systolic 122–190; BP diastolic 69–113; PULSE 61–86; RESP 14–22; TEMP 97.8–98.5; O2SAT 90–99
[~2017-03-21 08:51] MED LIST changes: -ASPI325T PO; +BLOOD GLUCOSE M1 KIT; +BLOOD GLUCOSE T1 TES; +BLOOD PRESSURE1 M20; -HYDR-3533 PO; -OMEP40CA2 PO; +PANT40TA3 PO; -Spironolactone PO
[2017-03-21] MEDS ORDERED: FUROSEMIDE 40 MG/4 ML VIAL IVP ONE (09:15)
[2017-03-21] MEDS ORDERED: SODIUM CHLORIDE 0.9% FLUSH 10 ML FLUSH IVF PRN (09:15)
[2017-03-21] MEDS ORDERED: methylPREDNISolone SOD SUCC 125 MG/2 ML VIAL IV PUSH ONE (09:15)
[2017-03-21] MEDS: RESP: ALBUTEROL 2.5 MG/3 ML NEB (SCH) INH ×3 (09:30→09:56)
--- NOTE | 2017-03-21 09:51 | RADRPT ---
EXAM DATE/TIME: 03/21/2017 09:32 [facility] COMPARISON: CHEST SINGLE AP, March 17, 2014, 13:11. INDICATIONS : Short of breath, wheezing, cough, weakness. MEDICAL HISTORY : Myocardial infarction. SURGICAL HISTORY : Pacemaker. ENCOUNTER: Initial ACUITY: 1 day PAIN SCORE: 1/10 LOCATION: Bilateral chest FINDINGS: Multiple lead AICD device in stable position. Cardiac silhouette is enlarged. Linear break of opaciti es in the right mid lung zone with bilateral mild lower lobe airspace disease. Remainder of the exam is unchanged. CONCLUSION: 1. Compensated cardiomegaly. 2. Right mid lung zone atelectasis/scarring. 3. Mild bibasilar airspace disease, likely atelectasis. Olu Beebe MD on March 21, 2017 at 9:44 Board Certified Radiologist. This report was verified electronically.
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
[2017-03-21 10:21] LABS: AUTOMATED NEUTROPHIL # 4.3 TH/MM3 (1.8-7.7); BASOPHIL # 0.1 TH/MM3 (0-0.2); BASOPHIL % 0.8 % (0.0-2.0); EOSINOPHIL # 0.2 TH/MM3 (0-0.4); EOSINOPHIL % 3.4 % (0.0-4.0); HEMO FLAGS DIFF FINAL; LYMPH % 16.1 % (9.0-44.0); LYMPHOCYTE # 1.1 TH/MM3 (1.0-4.8); MEAN CELL VOLUME 85.1 FL (80.0-100.0); MEAN CORPUSCULAR HEMOGLOBIN 26.7 PG (27.0-34.0); MEAN CORPUSCULAR HGB CONC 31.4 % (32.0-36.0); MONO % 14.5 % (0.0-8.0); NEUT % 65.2 % (16.0-70.0); PLATELET COUNT 174 TH/MM3 (150-450); RED BLOOD COUNT 3.99 MIL/MM3 (4.00-5.30); RED CELL DISTRIBUTION WIDTH 15.3 % (11.6-17.2); WHITE BLOOD COUNT 6.7 TH/MM3 (4.0-11.0)
[2017-03-21 10:48] LABS: ALT (GPT) 24 U/L (10-53); ANION GAP 6 MEQ/L (5-15); AST (GOT) 28 U/L (15-37); BICARBONATE 26.6 MEQ/L (21.0-32.0); BLOOD UREA NITROGEN 25 MG/DL (7-18); CHLORIDE 111 MEQ/L (98-107); GLOMERULAR FILTRATION RATE 45 ML/MIN (>89); POTASSIUM 3.9 MEQ/L (3.5-5.1); SODIUM (NA) 144 MEQ/L (136-145)
[2017-03-21 10:52] LABS: ALKALINE PHOSPHATASE 80 U/L (45-117); TOTAL BILIRUBIN ADULT 0.3 MG/DL (0.2-1.0)
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
[2017-03-21] MEDS ORDERED: SODIUM CHLORIDE 0.9% FLUSH 10 ML FLUSH IV FLUSH PRN (13:30)
[2017-03-21] MEDS ORDERED: DEXTROSE 50% IN WATER 50 ML VIAL(D50) IV PRN (13:30)
[2017-03-21] MEDS: POTASSIUM CHLORIDE 20 MEQ CONTROLLED RELEASE TAB PO SCH ×2 (13:30→21:50)
[2017-03-21] MEDS ORDERED: RESP: ALBUTEROL 2.5 MG/3 ML NEB (PRN) INH (13:30)
[2017-03-21] MEDS ORDERED: GLUCAGON 1 MG/ML VIAL OTHER PRN (13:30)
[2017-03-21] MEDS ORDERED: ALBUTEROL SULFATE 90 MCG/ACT HFA 8 GM INHALER INH PRN (13:45)
[2017-03-21] MEDS ORDERED: cloNIDine HCL 0.1 MG TAB PO PRN (13:45)
[2017-03-21] MEDS: HEPARIN SODIUM - SQ 10,000 UNITS/ML VIAL SQ SCH (14:00)
[2017-03-21] MEDS: INSULIN ASPART SUPPLEMENTAL SCALE SQ SCH ×2 (16:00→20:21)
[2017-03-21] MEDS: RESP: ALBUTEROL 2.5 MG/IPRATROPIUM 0.5 MG NEB (SCH) INH ×2 (16:59→19:45)
[2017-03-21] MEDS ORDERED: LACTULOSE SYRUP 20 GM/30 ML CUP PO PRN (17:15)
[2017-03-21] MEDS ORDERED: CALCIUM CARBONATE 500 MG CHEWABLE TAB CHEW PRN (17:15)
[2017-03-21] MEDS ORDERED: MORPHINE SULFATE 4 MG/ML INJ IV PRN (17:15)
[2017-03-21] MEDS ORDERED: MAGNESIUM HYDROXIDE SUSP 30 ML CUP PO PRN (17:15)
[2017-03-21] MEDS ORDERED: NALOXONE HCL 0.4 MG/ML AMP IV PRN (17:15)
[2017-03-21] MEDS ORDERED: BISACODYL 10 MG SUPP RECTAL PRN (17:15)
[2017-03-21] MEDS ORDERED: ONDANSETRON HCL 4 MG/2 ML VIAL IV PRN (17:15)
[2017-03-21] MEDS ORDERED: ALUMINUM/MAGNESIUM/SIMETH 30 ML CUP PO PRN (17:15)
[2017-03-21] MEDS ORDERED: SENNOSIDES 8.6 MG TAB PO PRN (17:15)
[2017-03-21] MEDS ORDERED: ACETAMINOPHEN/HYDROcodone 325 MG/5 MG TAB PO PRN (17:15)
[2017-03-21] MEDS ORDERED: ACETAMINOPHEN 325 MG TAB PO PRN (17:15)
[2017-03-21] MEDS: FUROSEMIDE 40 MG/4 ML VIAL IVP SCH (18:10)
[2017-03-21] MEDS: DOCUSATE SODIUM 50 MG/SENNA 8.6 MG TAB PO SCH (21:50)
[2017-03-21] MEDS: SODIUM CHLORIDE 0.9% FLUSH 10 ML FLUSH IV FLUSH SCH (21:50)
[2017-03-21] MEDS: CARVEDILOL 6.25 MG TAB PO SCH (21:50)
[2017-03-21] MEDS: BUDESONIDE-FORMOTEROL 80/4.5 MCG INHALER INH SCH (22:01)
[2017-03-22] VITALS (13 sets, daily range): BP systolic 104–149; BP diastolic 65–76; PULSE 60–83; RESP 17–18; TEMP 96.2–98.1; O2SAT 92–99
[2017-03-22] MEDS: RESP: ALBUTEROL 2.5 MG/IPRATROPIUM 0.5 MG NEB (SCH) INH ×6 (01:02→19:28)
[2017-03-22] MEDS: HEPARIN SODIUM - SQ 10,000 UNITS/ML VIAL SQ SCH ×2 (02:45→14:22)
[2017-03-22] MEDS: ACETAMINOPHEN/HYDROcodone 325 MG/7.5 MG TAB PO PRN ×2 (04:21→22:26)
[2017-03-22] MEDS: ISOSORBIDE MONONITRATE 30 MG TAB PO SCH (06:12)
[2017-03-22] MEDS: INSULIN ASPART SUPPLEMENTAL SCALE SQ SCH ×5 (08:00→21:00)
[2017-03-22] MEDS: POTASSIUM CHLORIDE 20 MEQ CONTROLLED RELEASE TAB PO SCH ×2 (08:43→22:35)
[2017-03-22] MEDS: BUDESONIDE-FORMOTEROL 80/4.5 MCG INHALER INH SCH ×2 (08:43→22:30)
[2017-03-22] MEDS: PANTOPRAZOLE SOD 40 MG DELAYED RELEASE TAB PO SCH (08:43)
[2017-03-22] MEDS: predniSONE 20 MG TAB PO SCH (08:44)
[2017-03-22] MEDS: LISINOPRIL 5 MG TAB PO SCH (08:44)
[2017-03-22] MEDS: DOCUSATE SODIUM 50 MG/SENNA 8.6 MG TAB PO SCH ×2 (08:44→21:00)
[2017-03-22] MEDS: CARVEDILOL 6.25 MG TAB PO SCH ×2 (08:44→22:28)
[2017-03-22] MEDS: SODIUM CHLORIDE 0.9% FLUSH 10 ML FLUSH IV FLUSH SCH ×2 (08:46→22:28)
[2017-03-22] MEDS: FUROSEMIDE 40 MG/4 ML VIAL IVP SCH (12:00)
[2017-03-22 15:08] LABS: BICARBONATE 25.7 MEQ/L (21.0-32.0); POTASSIUM 4.6 MEQ/L (3.5-5.1)
--- NOTE | 2017-03-22 15:26 | HHI.FPPN ---
Subjective Remarks Patient had some hypertension overnight, but has since been afebrile with vital signs stable and normotensive since this morning. She reports that her breathing is better. However, she does not feel well enough to go home yet. She notes that she is still wheezing. However, her lower extremity swelling is better. She reports that she is going to the bathroom very frequently with Lasix administration. She denies any chest pain. (Ferny Draper MD R2) Objective Vitals Vital Signs Date Time Temp Pulse Resp B/P (MAP) Pulse Ox O2 Delivery O2 Flow Rate FiO2 03/22/17 12:00 97.8 76 17 104/65 (78) 96 03/22/17 11:23 95 03/22/17 08:13 60 03/22/17 08:10 96 03/22/17 08:00 96.6 60 17 132/71 (91) 99 03/22/17 04:20 98.1 62 17 148/74 (98) 95 03/22/17 00:10 97.1 83 18 129/66 (87) 92 03/22/17 00:03 68 03/21/17 21:49 122/69 (86) 03/21/17 21:20 97.8 86 21 188/113 (138) 94 03/21/17 20:36 81 177/79 (111) 03/21/17 20:10 77 03/21/17 19:48 94 03/21/17 18:00 98.2 81 14 183/85 (117) 94 03/21/17 16:53 03/21/17 15:37 74 16 148/77 (100) 96 I/O 03/21/17 03/21/17 03/21/17 03/22/17 03/22/17 03/22/17 07:00 15:00 23:00 07:00 15:00 23:00 Intake Total 50 ml Output Total 800 ml Balance -750 ml Intake Oral 50 ml Output Urine Total 800 ml # Voids 2 (Ferny Draper MD R2) Result Diagram: 03/21/17 1003 03/22/17 1412 Imaging Last Impressions Chest X-Ray 03/21/17 0915 Signed Impressions: Service Date/Time: Tuesday, March 21, 2017 09:32 - CONCLUSION: 1. Compensated cardiomegaly. 2. Right mid lung zone atelectasis/scarring. 3. Mild bibasilar airspace disease, likely atelectasis. Olu Beebe MD Objective Remarks GENERAL: Well-nourished, well-developed female lying in bed without acute distress. She is alone. SKIN: Warm and dry. No rashes or bruises noted. HEAD: Atraumatic. Normocephalic. EYES: PERRL. Arcus senilis present bilaterally. No conjunctival pallor. No scleral icterus. No injection or drainage. ENT: No nasal bleeding or discharge. Mucous membranes pink and moist. Patient has upper dentures and is missing her lower dentures. NECK: Trachea midline. No JVD. CARDIOVASCULAR: Regular rate and rhythm, no murmurs on auscultation. Pacemaker noted in superficial left upper chest wall. RESPIRATORY: Good air movement bilaterally, much improved air movement relative to yesterday's exam, still with diffuse wheezes bilaterally. GASTROINTESTINAL: Abdomen soft, non-tender, nondistended. MUSCULOSKELETAL: No LE edema. Extremities without clubbing or cyanosis. No obvious deformities. Ambulates with assistive device. NEUROLOGICAL: Awake and alert. No obvious cranial nerve deficits. Moves all extremities well. Normal speech. PSYCHIATRIC: Appropriate mood and affect; insight and judgment normal. (Ferny Draper MD R2) A/P Assessment and Plan Mrs. Davis is an 86-year-old female with a history of CHF and COPD who presented to the emergency department with shortness of breath. History consistent with CHF exacerbation with BNP of 447. Physical exam consistent with COPD exacerbation. We will admit patient for treatment of CHF exacerbation as well as COPD exacerbation. Discharge Planning Pending improvement in dyspnea and respiratory status. (Ferny Draper MD R2) Attending Attestation Patient seen and examined. Case reviewed and discussed with the resident team. Agree with plan of care as discussed with me and documented in the resident note. she is improved today but not at baseline. agree with decreasing diuretics as she is more dry at this point. she is a DNR and does not want aggressive measures. a discussion can be made regarding what if any work up she wants re cardiac problems. at her age and stage in life she could suffer consequences from catheterization and she seems to be leaning against such measures (Shannan Baugh MD) Problem List: (1) Acute exacerbation of CHF (congestive heart failure) ICD Codes: I50.9 - Acute exacerbation of CHF (congestive heart failure) Status: Acute Plan: -Admit patient -ACS rule out until troponins trended down -Heart healthy diet with 2 L fluid restriction -Lasix 40 mg IV twice a day; given that patient appears dry on exam today, will switch IV to oral Lasix (home dose) -Potassium supplementation (home dose), BMP in the morning -Continue patient's home medications of carvedilol, Imdur, lisinopril -monitoring analyst/telemetry -Monitor intake and output and daily weights -Monitor vital signs including pulse ox -Physical therapy -Oxygen as needed (2) COPD (chronic obstructive pulmonary disease) ICD Codes: J44.9 - Chronic obstructive pulmonary disease, unspecified Status: Chronic Plan: -Admit to inpatient -Consult COPD educator -Duo Neb every 4 hours -Albuterol neb every 2 hours when necessary for shortness of breath, to be transitioned to albuterol inhaler every 4 hours when necessary for shortness of breath -Continue home medication of Symbicort -Prednisone 40 mg by mouth daily -Monitor vital signs and pulse ox -PT consult -Oxygen as needed (3) SAUNDRA (acute kidney injury) ICD Codes: N17.9 - Acute kidney failure, unspecified Plan: Patient with previous creatinines ranging from 1.06-1.28 presented with creatinine of 1.36 (likely from fluid overload) trended up to 1.5 to with current BUN to creatinine ratio of greater than 20:1 (likely from fluid underload). 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 She denies any chest pain. Elevations likely from fluid overload and cardiac hypoperfusion. -ACS rule out with troponin and EKG every 6 hours until troponins trended down (5) Hypertensive urgency ICD Codes: I16.0 - Hypertensive urgency Plan: Patient presented with hypertensive urgency with blood pressure up to 190 /84. -Continue home blood pressure medications -Continue Lasix as above -Clonidine when necessary for hypertension (6) Diabetes mellitus ICD Codes: E11.9 - Type 2 diabetes mellitus without complications Status: Chronic Plan: Patient with a diagnosis of diabetes reports that she does not feel educated about diabetes or know how to manage her diabetes. -Consult software educator and dietitian -Low-dose scale insulin -Monitor blood sugar -Hold patient's home metformin (7) Nutrition, metabolism, and development symptoms ICD Codes: R63.8 - Other symptoms and signs concerning food and fluid intake Status: Acute Plan: Fluids: Fluid restrict Electrolytes: Monitor and replete as necessary Nutrition: Heart healthy diet with fluid restriction She prophylaxis: Heparin every 12 hours GI prophylaxis: Continue patient's home medication of Protonix 40 g by mouth daily Other chronic medical problems: -Continue patient's home medication calcitonin nasal spray daily for osteoporosis -Continue patient's home medication Lucrecia-Colace one tab by mouth twice a day for constipation (Ferny Draper MD R2) Problem List: (1) Acute exacerbation of CHF (congestive heart failure) ICD Codes: I50.9 - Acute exacerbation of CHF (congestive heart failure) Status: Acute Plan: -Admit patient -ACS rule out until troponins trended down -Heart healthy diet with 2 L fluid restriction -Lasix 40 mg IV twice a day; given that patient appears dry on exam today, will switch IV to oral Lasix (home dose) -Potassium supplementation (home dose), BMP in the morning -Continue patient's home medications of carvedilol, Imdur, lisinopril -monitoring analyst/telemetry -Monitor intake and output and daily weights -Monitor vital signs including pulse ox -Physical therapy -Oxygen as needed (2) COPD (chronic obstructive pulmonary disease) ICD Codes: J44.9 - Chronic obstructive pulmonary disease, unspecified Status: Chronic Plan: -Admit to inpatient -Consult COPD educator -Duo Neb every 4 hours -Albuterol neb every 2 hours when necessary for shortness of breath, to be transitioned to albuterol inhaler every 4 hours when necessary for shortness of breath -Continue home medication of Symbicort -Prednisone 40 mg by mouth daily -Monitor vital signs and pulse ox -PT consult -Oxygen as needed (3) SAUNDRA (acute kidney injury) ICD Codes: N17.9 - Acute kidney failure, unspecified Plan: Patient with previous creatinines ranging from 1.06-1.28 presented with creatinine of 1.36 (likely from fluid overload) trended up to 1.5 to with current BUN to creatinine ratio of greater than 20:1 (likely from fluid underload). 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 She denies any chest pain. Elevations likely from fluid overload and cardiac hypoperfusion. -ACS rule out with troponin and EKG every 6 hours until troponins trended down (5) Hypertensive urgency ICD Codes: I16.0 - Hypertensive urgency Plan: Patient presented with hypertensive urgency with blood pressure up to 190 /84. -Continue home blood pressure medications -Continue Lasix as above -Clonidine when necessary for hypertension (6) Diabetes mellitus ICD Codes: E11.9 - Type 2 diabetes mellitus without complications Status: Chronic Plan: Patient with a diagnosis of diabetes reports that she does not feel educated about diabetes or know how to manage her diabetes. -Consult software educator and dietitian -Low-dose scale insulin -Monitor blood sugar -Hold patient's home metformin (7) Nutrition, metabolism, and development symptoms ICD Codes: R63.8 - Other symptoms and signs concerning food and fluid intake Status: Acute Plan: Fluids: Fluid restrict Electrolytes: Monitor and replete as necessary Nutrition: Heart healthy diet with fluid restriction She prophylaxis: Heparin every 12 hours GI prophylaxis: Continue patient's home medication of Protonix 40 g by mouth daily Other chronic medical problems: -Continue patient's home medication calcitonin nasal spray daily for osteoporosis -Continue patient's home medication Lucrecia-Colace one tab by mouth twice a day for constipation (Shannan Baugh MD) Problem Qualifiers (1) Acute exacerbation of CHF (congestive heart failure): Qualified Codes: I50.9 - Heart failure, unspecified Ferny Draper MD R2 Mar 22, 2017 15:25 Shannan Baugh MD Mar 22, 2017 16:35
[2017-03-22] MEDS ORDERED: SODIUM CHLOR 0.9% 250 ML INJ 250 ML IV ONE (16:00)
[2017-03-22] MEDS ORDERED: FUROSEMIDE 40 MG TAB PO SCH (18:00)
[2017-03-22] MEDS: CALCITONIN SALM 200 UNIT/SPRAY 3.7 ML BTLN NASAL SCH (18:30)
--- NOTE | 2017-03-22 21:23 | EKG ---
Date Performed: 03/22/2017 Time Performed: 01:22:51 PTAGE: 86 years EKG: ELECTRONIC VENTRICULAR PACEMAKER ABNORMAL RHYTHM ECG Compared to prior tracing no significa nt change DOCTOR: Juanis Lala Interpretating Date/Time 03/22/2017 21:22:18
--- NOTE | 2017-03-22 21:37 | EKG ---
Date Performed: 03/21/2017 Time Performed: 19:03:00 PTAGE: 86 years EKG: ELECTRONIC VENTRICULAR PACEMAKER ABNORMAL RHYTHM ECG PREVIOUS TRACING : 03/21/2017 16.39 Compared to prior tracing no significant change DOCTOR: Juanis Lala Interpretating Date/Time 03/22/2017 21:36:12
--- NOTE | 2017-03-22 21:44 | EKG ---
Date Performed: 03/21/2017 Time Performed: 16:39:24 PTAGE: 86 years EKG: ELECTRONIC VENTRICULAR PACEMAKER ABNORMAL RHYTHM ECG PREVIOUS TRACING : 03/21/2017 13.55 Compared to prior tracing no significant change DOCTOR: Juanis Lala Interpretating Date/Time 03/22/2017 21:43:22
--- NOTE | 2017-03-22 21:51 | EKG ---
Date Performed: 03/21/2017 Time Performed: 13:55:56 PTAGE: 86 years EKG: ELECTRONIC VENTRICULAR PACEMAKER ABNORMAL RHYTHM ECG PREVIOUS TRACING : 03/21/2017 09.03 Compared to prior tracing no significant change DOCTOR: Juanis Lala Interpretating Date/Time 03/22/2017 21:50:55
--- NOTE | 2017-03-22 22:04 | EKG ---
Date Performed: 03/21/2017 Time Performed: 09:03:38 PTAGE: 86 years EKG: ELECTRONIC VENTRICULAR PACEMAKER ABNORMAL RHYTHM ECG PREVIOUS TRACING : 09/09/2016 15.07 Compared to prior tracing no significant change DOCTOR: Juanis Lala Interpretating Date/Time 03/22/2017 22:03:13
[2017-03-23] VITALS (10 sets, daily range): BP systolic 141–165; BP diastolic 76–90; PULSE 63–81; RESP 16–21; TEMP 96.4–97.8; O2SAT 92–95
[2017-03-23] MEDS: HEPARIN SODIUM - SQ 10,000 UNITS/ML VIAL SQ SCH ×2 (03:50→14:28)
[2017-03-23] MEDS: RESP: ALBUTEROL 2.5 MG/IPRATROPIUM 0.5 MG NEB (SCH) INH ×6 (03:53→21:09)
[2017-03-23] MEDS: ISOSORBIDE MONONITRATE 30 MG TAB PO SCH (06:16)
[2017-03-23] MEDS ORDERED: FUROSEMIDE 20 MG/2 ML VIAL IV PUSH ONE ×2 (08:30→10:00)
[2017-03-23] MEDS: INSULIN ASPART SUPPLEMENTAL SCALE SQ SCH ×4 (08:57→21:00)
[2017-03-23] MEDS: POTASSIUM CHLORIDE 10 MEQ CONTROLLED RELEASE TAB PO SCH (10:10)
[2017-03-23] MEDS: predniSONE 20 MG TAB PO SCH (10:10)
[2017-03-23] MEDS: DOCUSATE SODIUM 50 MG/SENNA 8.6 MG TAB PO SCH ×2 (10:10→21:11)
[2017-03-23] MEDS: LISINOPRIL 5 MG TAB PO SCH (10:10)
[2017-03-23] MEDS: PANTOPRAZOLE SOD 40 MG DELAYED RELEASE TAB PO SCH (10:10)
[2017-03-23] MEDS: SODIUM CHLORIDE 0.9% FLUSH 10 ML FLUSH IV FLUSH SCH ×2 (10:11→21:12)
[2017-03-23] MEDS: BUDESONIDE-FORMOTEROL 80/4.5 MCG INHALER INH SCH ×2 (10:11→21:13)
[2017-03-23] MEDS: CARVEDILOL 6.25 MG TAB PO SCH ×2 (10:11→21:11)
[2017-03-23] MEDS: POTASSIUM CHLORIDE 20 MEQ CONTROLLED RELEASE TAB PO SCH ×2 (10:11→21:11)
[2017-03-23] MEDS ORDERED: LEVOFLOXACIN 750 MG TAB PO SCH ×2 (13:00)
--- NOTE | 2017-03-23 13:42 | HHI.FPPN ---
Subjective Remarks Switched from IV to by mouth Lasix yesterday. Patient was complaining of some shortness of breath this morning and her nurse requested Lasix IV, which was given. Patient has been mildly hypertensive and hypoxic overnight with a pulse ox of 92-94% on RA. Patient reports that she feels more short of breath today. She denies any chest pain. She still has a cough but feels like she can't bring any sputum up. (Ferny Draper MD R2) Objective Vitals Vital Signs Date Time Temp Pulse Resp B/P (MAP) Pulse Ox O2 Delivery O2 Flow Rate FiO2 03/23/17 12:23 97.3 63 20 141/83 (102) 92 03/23/17 08:20 97.8 76 21 144/76 (98) 92 03/23/17 04:08 72 03/23/17 04:00 97.3 73 18 165/90 (115) 93 03/23/17 03:55 92 03/23/17 00:06 72 03/23/17 00:00 96.4 70 18 152/77 (102) 94 03/22/17 20:06 78 03/22/17 20:00 97.3 69 18 149/76 (100) 94 03/22/17 16:16 60 03/22/17 16:01 98 21 03/22/17 16:00 96.2 60 17 129/66 (87) 95 I/O 03/22/17 03/22/17 03/22/17 03/23/17 03/23/17 03/23/17 07:00 15:00 23:00 07:00 15:00 23:00 Intake Total 50 ml 1440 ml Output Total 800 ml 1800 ml Balance -750 ml -360 ml Intake Oral 50 ml 1440 ml Output Urine Total 800 ml 1800 ml # Bowel Movements 1 (Ferny Draper MD R2) Result Diagram: 03/21/17 1003 03/22/17 1412 Imaging Last Impressions Chest X-Ray 03/21/1715 Signed Impressions: Service Date/Time: Tuesday, March 21, 2017 09:32 - CONCLUSION: 1. Compensated cardiomegaly. 2. Right mid lung zone atelectasis/scarring. 3. Mild bibasilar airspace disease, likely atelectasis. Olu Beebe MD Objective Remarks GENERAL: Well-nourished, well-developed elderly female lying in bed in mild respiratory distress. SKIN: Warm and dry. No rashes or bruises noted. HEAD: Atraumatic. Normocephalic. EYES: PERRL. Arcus senilis present bilaterally. No conjunctival pallor. No scleral icterus. No injection or drainage. ENT: No nasal bleeding or discharge. Mucous membranes pink and moist. Patient has upper dentures and is missing her lower dentures. NECK: Trachea midline. No JVD. CARDIOVASCULAR: Regular rate and rhythm, no murmurs on auscultation. Pacemaker noted in superficial left upper chest wall. RESPIRATORY: Poor air movement bilaterally, but much improved air movement relative to admission exam, still with diffuse wheezes bilaterally. GASTROINTESTINAL: Abdomen soft, non-tender, nondistended. MUSCULOSKELETAL: No LE edema. Extremities without clubbing or cyanosis. No obvious deformities. NEUROLOGICAL: Awake and alert. No obvious cranial nerve deficits. Moves all extremities well. Normal speech. PSYCHIATRIC: Appropriate mood and affect; insight and judgment normal. (Ferny Draper MD R2) A/P Assessment and Plan Mrs. Davis is an 86-year-old female with a history of CHF and COPD who presented to the emergency department with shortness of breath. History consistent with CHF exacerbation with BNP of 447. Physical exam consistent with COPD exacerbation. We will admit patient for treatment of CHF exacerbation as well as COPD exacerbation. Discharge Planning Pending improvement in dyspnea and respiratory status. (Ferny Draper MD R2) Attending Attestation Patient seen and examined. Case reviewed and discussed with the resident team. Agree with plan of care as discussed with me and documented in the resident note. she does not want aggressive treatment so will hold on extensive cardiac work up right now (Shannan Baugh MD) Problem List: (1) COPD (chronic obstructive pulmonary disease) ICD Codes: J44.9 - Chronic obstructive pulmonary disease, unspecified Status: Chronic Plan: -Admit to inpatient -Consult COPD educator -Duo Neb every 4 hours -Albuterol neb every 2 hours when necessary for shortness of breath, to be transitioned to albuterol inhaler every 4 hours when necessary for shortness of breath -Continue home medication of Symbicort -Prednisone 40 mg by mouth daily changed to Solu-Medrol 40 mg IV twice a day given c/o SOB at rest and PE c/w COPD exacerbation -Started Levaquin 750 mg by mouth daily for cough with change in sputum quality and quantity -CPT, incentive spirometry, Acapella -Monitor vital signs and pulse ox -PT consult -Oxygen as needed (2) Acute exacerbation of CHF (congestive heart failure) ICD Codes: I50.9 - Acute exacerbation of CHF (congestive heart failure) Status: Acute Plan: -Admit patient -ACS rule out until troponins trended down, which they have -Heart healthy diet with 2 L fluid restriction -Given that patient appears dry on exam today, will continue oral Lasix (home dose); patient received IV Lasix this morning -Potassium supplementation (home dose), BMP in the morning -Continue patient's home medications of carvedilol, Imdur, lisinopril -filter worker/telemetry -Monitor intake and output and daily weights -Monitor vital signs including pulse ox -Physical therapy -Oxygen as needed (3) SAUNDRA (acute kidney injury) ICD Codes: N17.9 - Acute kidney failure, unspecified Status: Acute Plan: Patient with previous creatinines ranging from 1.06-1.28 presented with creatinine of 1.36 (likely from fluid overload) trended up to 1.5 to with current BUN to creatinine ratio of greater than 20:1 (likely from fluid underload). - Continue oral Lasix (home dose) and fluid restriction (4) Elevated troponin ICD Codes: R74.8 - Abnormal levels of other serum enzymes Status: Resolved Plan: Patient with history of multiple MIs and a few episodes of troponin elevation presented with troponin elevation: 0.12, 0.30, 0.29, 0.17. She denies any chest pain. Elevations likely from fluid overload and cardiac hypoperfusion. -ACS rule out completed with troponin trended down (5) Hypertension ICD Codes: I10 - Hypertension Status: Chronic Plan: Patient presented with hypertensive urgency with blood pressure up to 190 /84, now mildly hypertensive. -Continue home blood pressure medications -Continue Lasix as above -Clonidine when necessary for hypertension (6) Diabetes mellitus ICD Codes: E11.9 - Type 2 diabetes mellitus without complications Status: Chronic Plan: Patient with a diagnosis of diabetes reports that she does not feel educated about diabetes or know how to manage her diabetes. -Consult staff development educator and dietitian -Low-dose scale insulin -Monitor blood sugar -Hold patient's home metformin (7) Nutrition, metabolism, and development symptoms ICD Codes: R63.8 - Other symptoms and signs concerning food and fluid intake Status: Acute Plan: Fluids: Fluid restrict Electrolytes: Monitor and replete as necessary Nutrition: Heart healthy diet with fluid restriction She prophylaxis: Heparin every 12 hours GI prophylaxis: Continue patient's home medication of Protonix 40 g by mouth daily Other chronic medical problems: -Continue patient's home medication calcitonin nasal spray daily for osteoporosis -Continue patient's home medication Lucrecia-Colace one tab by mouth twice a day for constipation (8) Hypertensive urgency ICD Codes: I16.0 - Hypertensive urgency Status: Resolved Plan: Patient presented with hypertensive urgency with blood pressure up to 190 /84. -Continue home blood pressure medications -Continue Lasix as above -Clonidine when necessary for hypertension (Ferny Draper MD R2) Problem Qualifiers (1) COPD (chronic obstructive pulmonary disease): Qualified Codes: J44.1 - Chronic obstructive pulmonary disease with (acute) exacerbation (2) Acute exacerbation of CHF (congestive heart failure): Qualified Codes: I50.9 - Heart failure, unspecified (3) Diabetes mellitus: Ferny Draper MD R2 Mar 23, 2017 13:42 Shannan Baugh MD Mar 25, 2017 12:57
[2017-03-23] MEDS: methylPREDNISolone SOD SUCC 40 MG/1 ML VIAL IV PUSH SCH ×2 (14:27→21:12)
[2017-03-23] MEDS: CALCITONIN SALM 200 UNIT/SPRAY 3.7 ML BTLN NASAL SCH (14:28)
[2017-03-24] VITALS (8 sets, daily range): BP systolic 133–167; BP diastolic 73–89; PULSE 62–80; RESP 16–22; TEMP 96.5–98.1; O2SAT 92–96
[2017-03-24] MEDS: RESP: ALBUTEROL 2.5 MG/IPRATROPIUM 0.5 MG NEB (SCH) INH ×6 (01:11→20:11)
[2017-03-24 03:52] LABS: AUTOMATED NEUTROPHIL # 4.7 TH/MM3 (1.8-7.7); BASOPHIL % 0.2 % (0.0-2.0); HEMATOCRIT 36.6 % (35.0-46.0); HEMO FLAGS DIFF FINAL; LYMPH % 11.6 % (9.0-44.0); LYMPHOCYTE # 0.7 TH/MM3 (1.0-4.8); MEAN CELL VOLUME 83.6 FL (80.0-100.0); MEAN CORPUSCULAR HEMOGLOBIN 26.4 PG (27.0-34.0); MEAN CORPUSCULAR HGB CONC 31.5 % (32.0-36.0); MONO % 5.3 % (0.0-8.0); NEUT % 82.9 % (16.0-70.0); PLATELET COUNT 214 TH/MM3 (150-450); RED BLOOD COUNT 4.38 MIL/MM3 (4.00-5.30); RED CELL DISTRIBUTION WIDTH 14.9 % (11.6-17.2); WHITE BLOOD COUNT 5.7 TH/MM3 (4.0-11.0)
[2017-03-24] MEDS: HEPARIN SODIUM - SQ 10,000 UNITS/ML VIAL SQ SCH ×2 (04:33→12:32)
[2017-03-24 05:08] LABS: BICARBONATE 25.9 MEQ/L (21.0-32.0); POTASSIUM 5.1 MEQ/L (3.5-5.1)
[2017-03-24] MEDS: ISOSORBIDE MONONITRATE 30 MG TAB PO SCH (06:13)
[2017-03-24 07:37] LABS: BICARBONATE 26.4 MEQ/L (21.0-32.0); POTASSIUM 4.8 MEQ/L (3.5-5.1)
[2017-03-24] MEDS: INSULIN ASPART SUPPLEMENTAL SCALE SQ SCH ×4 (08:00→21:00)
[2017-03-24] MEDS: BUDESONIDE-FORMOTEROL 80/4.5 MCG INHALER INH SCH ×2 (09:10→22:46)
[2017-03-24] MEDS: PANTOPRAZOLE SOD 40 MG DELAYED RELEASE TAB PO SCH (09:10)
[2017-03-24] MEDS: LISINOPRIL 5 MG TAB PO SCH (09:11)
[2017-03-24] MEDS: DOCUSATE SODIUM 50 MG/SENNA 8.6 MG TAB PO SCH ×2 (09:11→21:00)
[2017-03-24] MEDS: POTASSIUM CHLORIDE 20 MEQ CONTROLLED RELEASE TAB PO SCH ×2 (09:12→22:40)
[2017-03-24] MEDS: POTASSIUM CHLORIDE 10 MEQ CONTROLLED RELEASE TAB PO SCH (09:12)
[2017-03-24] MEDS: FUROSEMIDE 40 MG TAB PO SCH (09:12)
[2017-03-24] MEDS: CARVEDILOL 6.25 MG TAB PO SCH ×2 (09:13→22:40)
[2017-03-24] MEDS: SODIUM CHLORIDE 0.9% FLUSH 10 ML FLUSH IV FLUSH SCH ×2 (09:13→22:41)
[2017-03-24] MEDS: methylPREDNISolone SOD SUCC 40 MG/1 ML VIAL IV PUSH SCH ×2 (09:14→22:40)
[2017-03-24] MEDS: CALCITONIN SALM 200 UNIT/SPRAY 3.7 ML BTLN NASAL SCH (09:14)
[2017-03-24] MEDS ORDERED: CALCIUM CARBONATE 500 MG CHEWABLE TAB CHEW SCH (12:00)
--- NOTE | 2017-03-24 12:02 | HHI.FPPN ---
Subjective Remarks No acute events overnight. Mildly hypertensive overnight with intermittent hypoxia to 92% on room air. Patient still complains of wheezing and low abdominal pain, which she describes as discomfort in a band-like distribution over her lower abdomen, L>R, which has been present since her last admission. She feels that she is still not breathing normally. (Ferny Draper MD R2) Objective Vitals Vital Signs Date Time Temp Pulse Resp B/P (MAP) Pulse Ox O2 Delivery O2 Flow Rate FiO2 03/24/17 11:01 92 03/24/17 08:00 96.5 62 16 156/88 (110) 95 03/24/17 04:00 66 03/24/17 04:00 96.6 71 16 133/89 (104) 96 03/24/17 00:00 72 03/24/17 00:00 98.1 74 16 167/84 (111) 94 03/23/17 21:12 94 03/23/17 20:00 81 03/23/17 20:00 97.8 77 16 165/81 (109) 95 03/23/17 16:00 97.1 79 20 157/79 (105) 93 03/23/17 12:23 97.3 63 20 141/83 (102) 92 I/O 03/23/17 03/23/17 03/23/17 03/24/17 03/24/17 03/24/17 07:00 15:00 23:00 07:00 15:00 23:00 Intake Total 240 ml 480 ml Balance 240 ml 480 ml Intake Oral 240 ml 480 ml # Voids 2 (Ferny Draper MD R2) Result Diagram: 03/23/17 2324 03/24/17 0538 Imaging Last Impressions Chest X-Ray 03/21/17 0915 Signed Impressions: Service Date/Time: Tuesday, March 21, 2017 09:32 - CONCLUSION: 1. Compensated cardiomegaly. 2. Right mid lung zone atelectasis/scarring. 3. Mild bibasilar airspace disease, likely atelectasis. Olu Beebe MD Objective Remarks GENERAL: Well-nourished, well-developed elderly female lying in bed in mild respiratory distress. SKIN: Warm and dry. No rashes or bruises noted. HEAD: Atraumatic. Normocephalic. EYES: Arcus senilis present bilaterally. No conjunctival pallor. No scleral icterus. No injection or drainage. ENT: No nasal bleeding or discharge. Mucous membranes pink and moist. Patient has upper dentures and is missing her lower dentures. NECK: Trachea midline. No JVD. CARDIOVASCULAR: Regular rate and rhythm, no murmurs on auscultation. Pacemaker noted in superficial left upper chest wall. RESPIRATORY: Poor air movement bilaterally, but much improved air movement relative last exam, still with diffuse wheezes bilaterally. GASTROINTESTINAL: Abdomen soft, non-tender, nondistended. MUSCULOSKELETAL: No LE edema. Extremities without clubbing or cyanosis. No obvious deformities. NEUROLOGICAL: Awake and alert. No obvious cranial nerve deficits. Moves all extremities well. Normal speech. PSYCHIATRIC: Appropriate mood and affect; insight and judgment normal. (Ferny Draper MD R2) A/P Assessment and Plan Mrs. Davis is an 86-year-old female with a history of CHF and COPD who presented to the emergency department with shortness of breath. History consistent with CHF exacerbation with BNP of 447. Physical exam consistent with COPD exacerbation. We will admit patient for treatment of CHF exacerbation as well as COPD exacerbation. Discharge Planning Pending improvement in dyspnea and respiratory status. (Ferny Draper MD R2) Attending Attestation Patient seen and examined. Case reviewed and discussed with the resident team. Agree with plan of care as discussed with me and documented in the resident note. slow to improve overall. will keep thinking of her diagnosis (Shannan Baugh MD) Problem List: (1) COPD (chronic obstructive pulmonary disease) ICD Codes: J44.9 - Chronic obstructive pulmonary disease, unspecified Status: Chronic Plan: -Admit to inpatient -Consult COPD educator -Duo Neb every 4 hours -Albuterol neb every 2 hours when necessary for shortness of breath, to be transitioned to albuterol inhaler every 4 hours when necessary for shortness of breath -Continue home medication of Symbicort -Prednisone 40 mg by mouth daily changed to Solu-Medrol 40 mg IV twice a day given c/o SOB at rest and PE c/w COPD exacerbation -Started Levaquin 750 mg by mouth daily for cough with change in sputum quality and quantity (03/23 - present) -CPT, incentive spirometry, Acapella -Monitor vital signs and pulse ox -PT consult -Oxygen as needed (2) Acute exacerbation of CHF (congestive heart failure) ICD Codes: I50.9 - Acute exacerbation of CHF (congestive heart failure) Status: Acute Plan: -Admit patient -ACS rule out until troponins trended down, which they have -Heart healthy diet with 2 L fluid restriction -Given that patient appears dry on exam today, will continue oral Lasix (home dose); patient received IV Lasix this morning -Potassium supplementation (home dose), BMP in the morning -Continue patient's home medications of carvedilol, Imdur, lisinopril -gambling monitor/telemetry -Monitor intake and output and daily weights -Monitor vital signs including pulse ox -Physical therapy -Oxygen as needed (3) SAUNDRA (acute kidney injury) ICD Codes: N17.9 - Acute kidney failure, unspecified Status: Acute Plan: Patient with previous creatinines ranging from 1.06-1.28 presented with creatinine of 1.36 (likely from fluid overload) trended up to 1.5 to with current BUN to creatinine ratio of greater than 20:1 (likely from fluid underload). - Continue oral Lasix (home dose) and fluid restriction (4) Abdominal discomfort ICD Codes: R10.9 - Unspecified abdominal pain Plan: -Scheduled aluminum hydroxide, magnesium hydroxide, simethicone liquid, Tums chews, simethicone chew -Pain medications as needed (5) Elevated troponin ICD Codes: R74.8 - Abnormal levels of other serum enzymes Status: Resolved Plan: Patient with history of multiple MIs and a few episodes of troponin elevation presented with troponin elevation: 0.12, 0.30, 0.29, 0.17, 0.07. She denies any chest pain. Elevations likely from fluid overload and cardiac hypoperfusion. -ACS rule out completed with troponin trended down (6) Hypertension ICD Codes: I10 - Hypertension Status: Chronic Plan: Patient presented with hypertensive urgency with blood pressure up to 190 /84, now mildly hypertensive. -Continue home blood pressure medications -Continue Lasix as above -Clonidine when necessary for hypertension (7) Diabetes mellitus ICD Codes: E11.9 - Type 2 diabetes mellitus without complications Status: Chronic Plan: Patient with a diagnosis of diabetes reports that she does not feel educated about diabetes or know how to manage her diabetes. -Consult rate quoting operator and dietitian -Low-dose scale insulin -Monitor blood sugar -Hold patient's home metformin (8) Nutrition, metabolism, and development symptoms ICD Codes: R63.8 - Other symptoms and signs concerning food and fluid intake Status: Acute Plan: Fluids: Fluid restrict Electrolytes: Monitor and replete as necessary Nutrition: Heart healthy diet with fluid restriction She prophylaxis: Heparin every 12 hours GI prophylaxis: Continue patient's home medication of Protonix 40 g by mouth daily Other chronic medical problems: -Continue patient's home medication calcitonin nasal spray daily for osteoporosis -Continue patient's home medication Lucrecia-Colace one tab by mouth twice a day for constipation (Ferny Draper MD R2) Problem Qualifiers (1) COPD (chronic obstructive pulmonary disease): Qualified Codes: J44.1 - Chronic obstructive pulmonary disease with (acute) exacerbation (2) Acute exacerbation of CHF (congestive heart failure): Qualified Codes: I50.9 - Heart failure, unspecified (3) Diabetes mellitus: Ferny Draper MD R2 Mar 24, 2017 12:02 Shannan Baugh MD Mar 25, 2017 12:59
[2017-03-24] MEDS: CALCIUM CARBONATE 500 MG CHEWABLE TAB CHEW SCH ×2 (12:31→18:45)
[2017-03-24] MEDS: ALUMINUM/MAGNESIUM/SIMETH 30 ML CUP PO SCH ×2 (12:31→18:45)
[2017-03-24] MEDS: SIMETHICONE 125 MG CHEWABLE TAB PO SCH (12:56)
[2017-03-25] VITALS (11 sets, daily range): BP systolic 113–174; BP diastolic 54–88; PULSE 63–81; RESP 16–22; TEMP 97–98.1; O2SAT 94–100
[2017-03-25] MEDS: RESP: ALBUTEROL 2.5 MG/IPRATROPIUM 0.5 MG NEB (SCH) INH ×4 (01:12→11:21)
[2017-03-25] MEDS: HEPARIN SODIUM - SQ 10,000 UNITS/ML VIAL SQ SCH ×2 (03:03→15:58)
[2017-03-25] MEDS: ALUMINUM/MAGNESIUM/SIMETH 30 ML CUP PO SCH ×4 (06:13→18:02)
[2017-03-25] MEDS: ISOSORBIDE MONONITRATE 30 MG TAB PO SCH (06:13)
[2017-03-25 07:37] LABS: AUTOMATED NEUTROPHIL # 8.3 TH/MM3 (1.8-7.7); BASOPHIL % 0.1 % (0.0-2.0); HEMATOCRIT 36.4 % (35.0-46.0); HEMO FLAGS DIFF FINAL; LYMPH % 9.7 % (9.0-44.0); MEAN CELL VOLUME 83.2 FL (80.0-100.0); MEAN CORPUSCULAR HEMOGLOBIN 26.9 PG (27.0-34.0); MEAN CORPUSCULAR HGB CONC 32.3 % (32.0-36.0); MONO % 8.8 % (0.0-8.0); NEUT % 81.4 % (16.0-70.0); PLATELET COUNT 217 TH/MM3 (150-450); RED BLOOD COUNT 4.38 MIL/MM3 (4.00-5.30); RED CELL DISTRIBUTION WIDTH 14.7 % (11.6-17.2); WHITE BLOOD COUNT 10.3 TH/MM3 (4.0-11.0)
[2017-03-25 07:57] LABS: BICARBONATE 26.4 MEQ/L (21.0-32.0); POTASSIUM 5.1 MEQ/L (3.5-5.1)
[2017-03-25] MEDS: INSULIN ASPART SUPPLEMENTAL SCALE SQ SCH ×4 (08:00→21:00)
[2017-03-25] MEDS ORDERED: FUROSEMIDE 40 MG/4 ML VIAL IV PUSH ONE (11:00)
--- NOTE | 2017-03-25 11:04 | HHI.FPPN ---
Subjective Remarks Ms Davis gave a slightly different history today as far as her initial SOB. She stated "I have never had this type of problem before. I got so short of breath suddenly." She still is not back to baseline. She is SOB today and feels even a little worse than yesterday. She has not had chest pain nor edematous legs but is still coughing and wheezing. Objective Vitals Vital Signs Date Time Temp Pulse Resp B/P (MAP) Pulse Ox O2 Delivery O2 Flow Rate FiO2 03/25/17 08:00 97.4 68 16 147/88 (107) 100 03/25/17 08:00 68 03/25/17 04:40 97.9 80 22 135/80 (98) 98 03/25/17 04:00 64 03/25/17 01:15 94 03/25/17 00:00 97.3 63 20 174/82 (112) 94 03/25/17 00:00 70 03/24/17 20:00 98.0 80 22 138/78 (98) 96 03/24/17 20:00 73 03/24/17 16:34 92 21 03/24/17 16:00 96.9 66 18 145/80 (101) 95 03/24/17 12:00 97.0 68 18 141/73 (95) 94 I/O 03/24/17 03/24/17 03/24/17 03/25/17 03/25/17 03/25/17 07:00 15:00 23:00 07:00 15:00 23:00 Intake Total 840 ml 360 ml 800 ml Output Total 1250 ml 800 ml Balance -410 ml 360 ml 0 ml Intake Oral 840 ml 360 ml 800 ml Output Urine Total 1250 ml 800 ml # Voids 2 # Bowel Movements 0 0 Result Diagram: 03/25/17 0630 03/25/17 0630 Objective Remarks GENERAL: Well-nourished, well-developed elderly female lying in bed in mild respiratory distress. SKIN: Warm and dry. No rashes or bruises noted. HEAD: Atraumatic. Normocephalic. EYES: Arcus senilis present bilaterally. No conjunctival pallor. No scleral icterus. No injection or drainage. ENT: No nasal bleeding or discharge. Mucous membranes pink and moist. Patient has upper dentures and is missing her lower dentures. NECK: Trachea midline. No JVD. CARDIOVASCULAR: Regular rate and rhythm, no murmurs on auscultation. Pacemaker noted in superficial left upper chest wall. RESPIRATORY: Poor air movement bilaterally, still with diffuse wheezes bilaterally. Some basilar rales today. GASTROINTESTINAL: Abdomen soft, non-tender, nondistended. MUSCULOSKELETAL: No LE edema. Extremities without clubbing or cyanosis. No obvious deformities. NEUROLOGICAL: Awake and alert. No obvious cranial nerve deficits. Moves all extremities well. Normal speech. PSYCHIATRIC: Appropriate mood and affect; insight and judgment normal. Urinary Catheter: No Vascular Central Line Catheter: No A/P Assessment and Plan Mrs. Davis is an 86-year-old female with a history of CHF and COPD who presented to the emergency department with shortness of breath. History consistent with CHF exacerbation with BNP of 447. Physical exam consistent with COPD exacerbation. We will admit patient for treatment of CHF exacerbation as well as COPD exacerbation. She is slow to improve despite treatment for both COPD and CHF. Discharge Planning Pending improvement in dyspnea and respiratory status.will check to see if she could have a PE Problem List: (1) COPD (chronic obstructive pulmonary disease) ICD Codes: J44.9 - Chronic obstructive pulmonary disease, unspecified Status: Chronic Plan: -Admit to inpatient -Consulted COPD educator -Duo Neb every 4 hours -Albuterol neb every 2 hours when necessary for shortness of breath, to be transitioned to albuterol inhaler every 4 hours when necessary for shortness of breath -Continue home medication of Symbicort -Prednisone 40 mg by mouth daily changed to Solu-Medrol 40 mg IV twice a day given c/o SOB at rest and PE c/w COPD exacerbation -Started Levaquin 750 mg by mouth daily for cough with change in sputum quality and quantity (03/23 - present). levaquin changed to q 24 because of her age and renal fxn -CPT, incentive spirometry, Acapella -Monitor vital signs and pulse ox -PT consult -Oxygen as needed (2) Acute exacerbation of CHF (congestive heart failure) ICD Codes: I50.9 - Acute exacerbation of CHF (congestive heart failure) Status: Acute Plan: -Admit patient -ACS rule out until troponins trended down, which they have -Heart healthy diet with 2 L fluid restriction -will give a dose of iv lasix today as her BNP was up on last draw. believe there is a mixed picture of COPD plus CHF. -Potassium supplementation (home dose), BMP in the morning -Continue patient's home medications of carvedilol, Imdur, lisinopril -groundwater monitoring technician/telemetry -Monitor intake and output and daily weights -Monitor vital signs including pulse ox -Physical therapy -Oxygen as needed will check VQ as she has a history today of sudden onset of her SOB plus she has had elevated troponins and some CHF which could be PE. would not want to give therapeutic anticoagulation unless she definitely had a PE as she has a history of a GI bleed (3) SAUNDRA (acute kidney injury) ICD Codes: N17.9 - Acute kidney failure, unspecified Status: Acute Plan: Patient with previous creatinines ranging from 1.06-1.28 presented with creatinine of 1.36 (likely from fluid overload) trended up to 1.5 to with current BUN to creatinine ratio of greater than 20:1 (likely from fluid underload). - Continue lasix, will need to watch creatinine. per her weights and Is and Os she has not diuresed much at all. if her creatinine increases too much, her lasix can be held and it should correct (4) Elevated troponin ICD Codes: R74.8 - Abnormal levels of other serum enzymes Status: Resolved Plan: Patient with history of multiple MIs and a few episodes of troponin elevation presented with troponin elevation: 0.12, 0.30, 0.29, 0.17, 0.07. She denies any chest pain. Elevations likely from fluid overload and cardiac hypoperfusion. -ACS rule out completed with troponin trended down (5) Hypertension ICD Codes: I10 - Hypertension Status: Chronic Plan: Patient presented with hypertensive urgency with blood pressure up to 190 /84, now mildly hypertensive. -Continue home blood pressure medications -Continue Lasix as above -Clonidine when necessary for hypertension (6) Diabetes mellitus ICD Codes: E11.9 - Type 2 diabetes mellitus without complications Status: Chronic Plan: Patient with a diagnosis of diabetes reports that she does not feel educated about diabetes or know how to manage her diabetes. -Consult outreach educator and dietitian, they may not see her in hospital but this can be done as an outpt if not able to do here -Low-dose scale insulin -Monitor blood sugar -Hold patient's home metformin (7) Nutrition, metabolism, and development symptoms ICD Codes: R63.8 - Other symptoms and signs concerning food and fluid intake Status: Acute Plan: Fluids: Fluid restrict Electrolytes: Monitor and replete as necessary Nutrition: Heart healthy diet with fluid restriction She prophylaxis: Heparin every 12 hours GI prophylaxis: Continue patient's home medication of Protonix 40 g by mouth daily Other chronic medical problems: -Continue patient's home medication calcitonin nasal spray daily for osteoporosis -Continue patient's home medication Lucrecia-Colace one tab by mouth twice a day for constipation (8) Abdominal discomfort ICD Codes: R10.9 - Unspecified abdominal pain Plan: -Scheduled aluminum hydroxide, magnesium hydroxide, simethicone liquid, Tums chews, simethicone chew -Pain medications as needed not complaining of this today Problem Qualifiers (1) COPD (chronic obstructive pulmonary disease): Qualified Codes: J44.1 - Chronic obstructive pulmonary disease with (acute) exacerbation (2) Acute exacerbation of CHF (congestive heart failure): Qualified Codes: I50.9 - Heart failure, unspecified (3) Diabetes mellitus: Shannan Baugh MD Mar 25, 2017 11:04
[2017-03-25] MEDS: CARVEDILOL 6.25 MG TAB PO SCH ×2 (11:28→21:11)
[2017-03-25] MEDS: PANTOPRAZOLE SOD 40 MG DELAYED RELEASE TAB PO SCH (11:28)
[2017-03-25] MEDS: SIMETHICONE 125 MG CHEWABLE TAB PO SCH (11:28)
[2017-03-25] MEDS: CALCIUM CARBONATE 500 MG CHEWABLE TAB CHEW SCH ×3 (11:28→18:02)
[2017-03-25] MEDS: LISINOPRIL 5 MG TAB PO SCH (11:28)
[2017-03-25] MEDS: POTASSIUM CHLORIDE 20 MEQ CONTROLLED RELEASE TAB PO SCH ×2 (11:29→21:11)
[2017-03-25] MEDS: methylPREDNISolone SOD SUCC 40 MG/1 ML VIAL IV PUSH SCH ×2 (11:29→21:11)
[2017-03-25] MEDS: FUROSEMIDE 40 MG TAB PO SCH (11:29)
[2017-03-25] MEDS: POTASSIUM CHLORIDE 10 MEQ CONTROLLED RELEASE TAB PO SCH (11:29)
[2017-03-25] MEDS: CALCITONIN SALM 200 UNIT/SPRAY 3.7 ML BTLN NASAL SCH (11:30)
[2017-03-25] MEDS: BUDESONIDE-FORMOTEROL 80/4.5 MCG INHALER INH SCH ×2 (11:30→21:12)
[2017-03-25] MEDS: SODIUM CHLORIDE 0.9% FLUSH 10 ML FLUSH IV FLUSH SCH ×2 (11:30→21:11)
[2017-03-25] MEDS: DOCUSATE SODIUM 50 MG/SENNA 8.6 MG TAB PO SCH ×2 (11:33→21:00)
--- NOTE | 2017-03-25 15:47 | RADRPT ---
EXAM DATE/TIME: 03/25/2017 15:19 [facility] COMPARISON: No previous studies available for comparison. INDICATIONS : Dyspnea. DOSE: 8.7 mCi Tc99m MAA IV 0.60 mCi Tc99m DTPA aerosol MEDICAL HISTORY : Chronic obstructive pulmonary disease. Hypertension. Congestive heart failure. Myocardial infarction. SURGICAL HISTORY : Appendectomy. Cholecystectomy. Hysterectomy. ENCOUNTER: Initial ACUITY: 1 day PAIN SCALE: 0/10 LOCATION: chest TECHNIQUE: Following five minutes of tidal breathing of DTPA aerosol, planar images of the lungs were performed in eight projections. The patient was then injected with MAA, and eight-view perfusion scan was perf ormed. FINDINGS: Chest radiograph demonstrates cardiomegaly with mild bibasilar airspace disease. There is a heterogeneous central deposition of aerosol on the ventilatory scan. The perfusion lung scan demonstrates no significant perfusion defects. CONCLUSION: 1. Low probability VQ scan. 2. Findings consistent with obstructive pulmonary disease Olu Beebe MD on March 25, 2017 at 15:39 Board Certified Radiologist. This report was verified electronically.
[2017-03-25] MEDS: LEVOFLOXACIN 750 MG TAB PO SCH (15:57)
[2017-03-26] VITALS (9 sets, daily range): BP systolic 115–134; BP diastolic 60–73; PULSE 59–76; RESP 18–20; TEMP 97.4–98.4; O2SAT 94–95
[2017-03-26] MEDS: HEPARIN SODIUM - SQ 10,000 UNITS/ML VIAL SQ SCH ×2 (03:06→14:59)
[2017-03-26] MEDS: ISOSORBIDE MONONITRATE 30 MG TAB PO SCH (05:00)
[2017-03-26] MEDS: ALUMINUM/MAGNESIUM/SIMETH 30 ML CUP PO SCH ×5 (05:00→22:35)
[2017-03-26 07:27] LABS: HEMATOCRIT 37.9 % (35.0-46.0); MEAN CELL VOLUME 82.7 FL (80.0-100.0); MEAN CORPUSCULAR HEMOGLOBIN 26.7 PG (27.0-34.0); MEAN CORPUSCULAR HGB CONC 32.3 % (32.0-36.0); PLATELET COUNT 241 TH/MM3 (150-450); RED BLOOD COUNT 4.59 MIL/MM3 (4.00-5.30); RED CELL DISTRIBUTION WIDTH 14.7 % (11.6-17.2); REVIEW FLAG FINAL; WHITE BLOOD COUNT 12.3 TH/MM3 (4.0-11.0)
[2017-03-26 08:02] LABS: BICARBONATE 28.4 MEQ/L (21.0-32.0); POTASSIUM 5.2 MEQ/L (3.5-5.1)
[2017-03-26] MEDS: INSULIN ASPART SUPPLEMENTAL SCALE SQ SCH ×4 (08:46→21:00)
[2017-03-26] MEDS: SIMETHICONE 125 MG CHEWABLE TAB PO SCH (08:58)
[2017-03-26] MEDS: CARVEDILOL 6.25 MG TAB PO SCH ×2 (08:58→22:35)
[2017-03-26] MEDS: FUROSEMIDE 40 MG TAB PO SCH (08:59)
[2017-03-26] MEDS: LISINOPRIL 5 MG TAB PO SCH (08:59)
[2017-03-26] MEDS: SODIUM CHLORIDE 0.9% FLUSH 10 ML FLUSH IV FLUSH SCH ×2 (09:00→22:36)
[2017-03-26] MEDS: methylPREDNISolone SOD SUCC 40 MG/1 ML VIAL IV PUSH SCH ×2 (09:00→22:36)
[2017-03-26] MEDS: PANTOPRAZOLE SOD 40 MG DELAYED RELEASE TAB PO SCH (09:00)
[2017-03-26] MEDS: CALCIUM CARBONATE 500 MG CHEWABLE TAB CHEW SCH ×3 (09:01→17:55)
[2017-03-26] MEDS: CALCITONIN SALM 200 UNIT/SPRAY 3.7 ML BTLN NASAL SCH (09:01)
[2017-03-26] MEDS: BUDESONIDE-FORMOTEROL 80/4.5 MCG INHALER INH SCH ×2 (09:01→22:36)
[2017-03-26] MEDS: DOCUSATE SODIUM 50 MG/SENNA 8.6 MG TAB PO SCH ×2 (09:01→21:00)
[2017-03-26] MEDS: POTASSIUM CHLORIDE 10 MEQ CONTROLLED RELEASE TAB PO SCH (09:02)
[2017-03-26] MEDS: POTASSIUM CHLORIDE 20 MEQ CONTROLLED RELEASE TAB PO SCH ×2 (09:02→22:35)
[2017-03-26] MEDS: guaiFENesin SOLUTION 200 MG/10 ML CUP PO SCH ×4 (11:48→22:35)
--- NOTE | 2017-03-26 12:01 | HHI.FPPN ---
Subjective Remarks No acute events overnight. Afebrile and vital signs stable overnight. Patient reports that she couldn't eat her breakfast this morning. Partially because of lack of appetite and partially because she doesn't like it. Patient still feels like she has a cough and is unable to cough up any sputum. She has tried hot coffee to loosen her phlegm. Patient complains of right lower quadrant discomfort today. She initially presented with left lower quadrant discomfort. She reports that the pain medications we are giving help with this. Patient reports that she feels too weak to go home today. (Ferny Draper MD R2) Objective Vitals Vital Signs Date Time Temp Pulse Resp B/P (MAP) Pulse Ox O2 Delivery O2 Flow Rate FiO2 03/26/17 07:49 68 03/26/17 04:09 98.1 73 18 134/73 (93) 95 03/26/17 00:20 75 03/25/17 22:00 98.0 81 18 141/83 (102) 97 03/25/17 20:27 98.1 78 20 113/54 (73) 94 03/25/17 20:00 78 03/25/17 16:30 76 03/25/17 16:00 97.9 77 16 125/70 (88) 100 03/25/17 12:00 97.0 80 18 114/67 (83) 97 03/25/17 12:00 77 I/O 03/25/17 03/25/17 03/25/17 03/26/17 03/26/17 03/26/17 07:00 15:00 23:00 07:00 15:00 23:00 Intake Total 800 ml 840 ml Output Total 800 ml 1000 ml Balance 0 ml 840 ml -1000 ml Intake Oral 800 ml 840 ml Output Urine Total 800 ml 1000 ml # Voids 3 3 # Bowel Movements 0 0 1 (Ferny Draper MD R2) Result Diagram: 03/26/17 0635 03/26/17 0635 Imaging Last Impressions Lung Scan-VQ Nuclear Medicine 03/25/17 0000 Signed Impressions: Service Date/Time: Saturday, March 25, 2017 14:35 - CONCLUSION: 1. Low probability VQ scan. 2. Findings consistent with obstructive pulmonary disease Olu Beebe MD Chest X-Ray 03/25/17 0000 Signed Impressions: Service Date/Time: Saturday, March 25, 2017 15:19 - CONCLUSION: 1. Low probability VQ scan. 2. Findings consistent with obstructive pulmonary disease Olu Beebe MD Objective Remarks GENERAL: Well-nourished, well-developed elderly female lying in bed without respiratory distress. SKIN: Warm and dry. No rashes or bruises noted. HEAD: Atraumatic. Normocephalic. EYES: Arcus senilis present bilaterally. No conjunctival pallor. No scleral icterus. No injection or drainage. ENT: No nasal bleeding or discharge. Mucous membranes pink and moist. Patient has upper dentures and is missing her lower dentures. NECK: Trachea midline. No JVD. CARDIOVASCULAR: Regular rate and rhythm, no murmurs on auscultation. Pacemaker noted in superficial left upper chest wall. RESPIRATORY: Improved air movement bilaterally, still with diffuse wheezes bilaterally. GASTROINTESTINAL: Abdomen soft, mildly TTP in RLQ, but no rebounding or guarding , nondistended. MUSCULOSKELETAL: No LE edema. Extremities without clubbing or cyanosis. No obvious deformities. NEUROLOGICAL: Awake and alert. No obvious cranial nerve deficits. Moves all extremities well. Normal speech. PSYCHIATRIC: Appropriate mood and affect; insight and judgment normal. (Ferny Draper MD R2) A/P Assessment and Plan Mrs. Davis is an 86-year-old female with a history of CHF and COPD who presented to the emergency department with shortness of breath. History consistent with CHF exacerbation with BNP of 447. Physical exam consistent with COPD exacerbation. We will admit patient for treatment of CHF exacerbation as well as COPD exacerbation. She is slow to improve despite treatment for both COPD and CHF. Discharge Planning Pending improvement in dyspnea and respiratory status. (Ferny Draper MD R2) Attending Attestation Patient seen and examined. Case reviewed and discussed with the resident team. Agree with plan of care as discussed with me and documented in the resident note. she is elderly and frail and lives alone. she is requesting rehab as she has continued weakness form her medical conditions she has been hospitalized for. (Shannan Baugh MD) Problem List: (1) COPD (chronic obstructive pulmonary disease) ICD Codes: J44.9 - Chronic obstructive pulmonary disease, unspecified Status: Chronic Plan: -Admit to inpatient -Consulted by COPD educator -Duo Neb every 4 hours -Albuterol neb every 2 hours when necessary for shortness of breath, to be transitioned to albuterol inhaler every 4 hours when necessary for shortness of breath -Continue home medication of Symbicort -Prednisone 40 mg by mouth daily changed to Solu-Medrol 40 mg IV twice a day given for c/o SOB at rest and PE c/w COPD exacerbation; will d/c with steroid taper -Started Levaquin 750 mg by mouth q48h (renally dosed) for cough with change in sputum quality and quantity (03/23 - present). levaquin changed to q 48h because of her age and renal fxn -CPT, incentive spirometry, Acapella -Monitor vital signs and pulse ox -PT consult, OT today prior to d/c -Oxygen as needed -VQ scan negative (2) Acute exacerbation of CHF (congestive heart failure) ICD Codes: I50.9 - Acute exacerbation of CHF (congestive heart failure) Status: Acute Plan: -Admit patient -ACS rule out until troponins trended down, which they have -Heart healthy diet with 2 L fluid restriction -Potassium supplementation (home dose), BMP in the morning -Continue patient's home medications of carvedilol, Imdur, lisinopril -electronic device monitor/telemetry -Monitor intake and output and daily weights -Monitor vital signs including pulse ox -Physical therapy, OT today prior to d/c -Oxygen as needed -VQ negative (3) SAUNDRA (acute kidney injury) ICD Codes: N17.9 - Acute kidney failure, unspecified Status: Acute Plan: Patient with previous creatinines ranging from 1.06-1.28 presented with creatinine of 1.36 (likely from fluid overload) trended up to 1.86 with current BUN to creatinine ratio of greater than 20:1 (likely prerenal). - Continue lasix, will need to watch creatinine. per her weights and Is and Os she has not diuresed much at all. if her creatinine increases too much, her lasix can be held and it should correct - small IVF bolus (4) Abdominal discomfort ICD Codes: R10.9 - Unspecified abdominal pain Status: Acute Plan: Abdominal discomfort has moved from left lower quadrant on initial presentation to right lower quadrant today. Based on recent CT, most likely etiology is from constipation. Patient has had a bowel movement today, about every other day. -Scheduled aluminum hydroxide, magnesium hydroxide, simethicone liquid, Tums chews, simethicone chew -Pain medications as needed (5) Cough ICD Codes: R05 - Cough Plan: Patient complains of cough and feeling like there is phlegm that she just can't cough up. 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 She denies any chest pain. Elevations likely from fluid overload and cardiac hypoperfusion. -ACS rule out completed with troponin trended down (7) Hypertension ICD Codes: I10 - Hypertension Status: Chronic Plan: Patient presented with hypertensive urgency with blood pressure up to 190 /84, now mildly hypertensive. -Continue home blood pressure medications -Continue Lasix as above -Clonidine when necessary for hypertension (8) Diabetes mellitus ICD Codes: E11.9 - Type 2 diabetes mellitus without complications Status: Chronic Plan: Patient with a diagnosis of diabetes reports that she does not feel educated about diabetes or know how to manage her diabetes. -Consult primary special educator and dietitian, they may not see her in hospital but this can be done as an outpt if not able to do here -Low-dose scale insulin -Monitor blood sugar -Hold patient's home metformin (9) Nutrition, metabolism, and development symptoms ICD Codes: R63.8 - Other symptoms and signs concerning food and fluid intake Status: Acute Plan: Fluids: Fluid restrict Electrolytes: Monitor and replete as necessary Nutrition: Heart healthy diet with fluid restriction She prophylaxis: Heparin every 12 hours GI prophylaxis: Continue patient's home medication of Protonix 40 g by mouth daily Other chronic medical problems: -Continue patient's home medication calcitonin nasal spray daily for osteoporosis -Continue patient's home medication Lucrecia-Colace one tab by mouth twice a day for constipation (Ferny Draper MD R2) Problem Qualifiers (1) COPD (chronic obstructive pulmonary disease): Qualified Codes: J44.1 - Chronic obstructive pulmonary disease with (acute) exacerbation (2) Acute exacerbation of CHF (congestive heart failure): Qualified Codes: I50.9 - Heart failure, unspecified (3) Diabetes mellitus: Ferny Draper MD R2 Mar 26, 2017 12:01 Shannan Baugh MD Mar 27, 2017 13:41
[2017-03-26] MEDS ORDERED: SODIUM CHLOR 0.9% 250 ML INJ 250 ML IV ONE (13:30)
[2017-03-27] VITALS (7 sets, daily range): BP systolic 111–137; BP diastolic 57–76; PULSE 61–77; RESP 16–18; TEMP 96.5–98.6; O2SAT 92–99
[2017-03-27] MEDS: HEPARIN SODIUM - SQ 10,000 UNITS/ML VIAL SQ SCH ×2 (02:00→14:10)
[2017-03-27] MEDS: guaiFENesin SOLUTION 200 MG/10 ML CUP PO SCH ×6 (03:00→21:32)
[2017-03-27] MEDS: ALUMINUM/MAGNESIUM/SIMETH 30 ML CUP PO SCH ×4 (06:00→21:32)
[2017-03-27] MEDS: ISOSORBIDE MONONITRATE 30 MG TAB PO SCH (06:00)
[2017-03-27] MEDS: INSULIN ASPART SUPPLEMENTAL SCALE SQ SCH ×4 (08:10→21:30)
[2017-03-27] MEDS: CALCIUM CARBONATE 500 MG CHEWABLE TAB CHEW SCH ×3 (08:11→17:19)
[2017-03-27] MEDS: POTASSIUM CHLORIDE 20 MEQ CONTROLLED RELEASE TAB PO SCH ×2 (08:11→21:31)
[2017-03-27] MEDS: POTASSIUM CHLORIDE 10 MEQ CONTROLLED RELEASE TAB PO SCH (08:12)
[2017-03-27] MEDS: LISINOPRIL 5 MG TAB PO SCH (08:12)
[2017-03-27] MEDS: methylPREDNISolone SOD SUCC 40 MG/1 ML VIAL IV PUSH SCH ×2 (08:12→21:30)
[2017-03-27] MEDS: SIMETHICONE 125 MG CHEWABLE TAB PO SCH ×2 (08:12→21:32)
[2017-03-27] MEDS: PANTOPRAZOLE SOD 40 MG DELAYED RELEASE TAB PO SCH (08:12)
[2017-03-27] MEDS: SODIUM CHLORIDE 0.9% FLUSH 10 ML FLUSH IV FLUSH SCH ×2 (08:13→21:29)
[2017-03-27] MEDS: BUDESONIDE-FORMOTEROL 80/4.5 MCG INHALER INH SCH ×2 (08:13→21:29)
[2017-03-27] MEDS: FUROSEMIDE 40 MG TAB PO SCH (08:13)
[2017-03-27] MEDS: CARVEDILOL 6.25 MG TAB PO SCH ×2 (08:13→21:30)
[2017-03-27] MEDS: CALCITONIN SALM 200 UNIT/SPRAY 3.7 ML BTLN NASAL SCH (08:14)
[2017-03-27] MEDS: DOCUSATE SODIUM 50 MG/SENNA 8.6 MG TAB PO SCH ×2 (08:14→21:00)
[2017-03-27 09:13] LABS: AUTOMATED NEUTROPHIL # 10.9 TH/MM3 (1.8-7.7); BASOPHIL % 0.2 % (0.0-2.0); EOSINOPHIL % 0.1 % (0.0-4.0); HEMATOCRIT 41.4 % (35.0-46.0); HEMO FLAGS DIFF FINAL; LYMPHOCYTE # 1.7 TH/MM3 (1.0-4.8); MEAN CELL VOLUME 83.8 FL (80.0-100.0); MEAN CORPUSCULAR HEMOGLOBIN 26.6 PG (27.0-34.0); MEAN CORPUSCULAR HGB CONC 31.8 % (32.0-36.0); MONO % 8.7 % (0.0-8.0); PLATELET COUNT 255 TH/MM3 (150-450); RED BLOOD COUNT 4.94 MIL/MM3 (4.00-5.30); RED CELL DISTRIBUTION WIDTH 15.2 % (11.6-17.2); WHITE BLOOD COUNT 13.8 TH/MM3 (4.0-11.0)
[2017-03-27 11:24] LABS: BICARBONATE 27.8 MEQ/L (21.0-32.0); POTASSIUM 4.6 MEQ/L (3.5-5.1)
[2017-03-27] MEDS: LEVOFLOXACIN 750 MG TAB PO SCH (14:10)
--- NOTE | 2017-03-27 14:34 | HHI.FPPN ---
Subjective Remarks Mrs. Davis was afebrile with stable vital signs overnight. Mrs. Davis reports that she felt hot flush sensation when in the bathroom this morning; patient did not report chest pain, shortness of breath, or other symptoms. Patient reports weakness and states that she feels as if she would benefit from assistance at shelter facility. (Christophe Schmidt MD, R3) Objective Vitals Vital Signs Date Time Temp Pulse Resp B/P (MAP) Pulse Ox O2 Delivery O2 Flow Rate FiO2 03/27/17 12:00 96.5 61 16 133/67 (89) 92 03/27/17 08:00 97.6 72 16 112/74 (87) 93 03/27/17 04:20 97.7 68 17 137/64 (88) 98 03/27/17 00:15 98.0 63 17 132/76 (94) 99 03/26/17 20:15 98.4 74 18 120/63 (82) 94 03/26/17 20:08 76 03/26/17 16:06 62 03/26/17 16:00 97.8 64 20 130/60 (83) 94 I/O 03/26/17 03/26/17 03/26/17 03/27/17 03/27/17 03/27/17 07:00 15:00 23:00 07:00 15:00 23:00 Intake Total 1090 ml 240 ml Output Total 1050 ml 1050 ml Balance 40 ml -810 ml Intake Oral 840 ml 240 ml IV Total 250 ml Output Urine Total 1050 ml 1050 ml # Voids 3 (Christophe Schmidt MD, R3) Result Diagram: 03/27/17 0826 03/27/17 1050 Imaging Last Impressions Lung Scan-VQ Nuclear Medicine 03/25/17 0000 Signed Impressions: Service Date/Time: Saturday, March 25, 2017 14:35 - CONCLUSION: 1. Low probability VQ scan. 2. Findings consistent with obstructive pulmonary disease Olu Beebe MD Chest X-Ray 03/25/17 0000 Signed Impressions: Service Date/Time: Saturday, March 25, 2017 15:19 - CONCLUSION: 1. Low probability VQ scan. 2. Findings consistent with obstructive pulmonary disease Olu Beebe MD Objective Remarks GENERAL: Well-nourished, well-developed elderly female lying in bed without respiratory distress. SKIN: Warm and dry. No rashes or bruises noted. CARDIOVASCULAR: Regular rate and rhythm, no murmurs on auscultation. Pacemaker noted in superficial left upper chest wall. RESPIRATORY: Mild crackling and expiratory wheezing bilaterally; normal rate GASTROINTESTINAL: Abdomen soft, no distension or significant tenderness MUSCULOSKELETAL: No LE edema. Extremities without cyanosis. No obvious deformities. NEUROLOGICAL: Awake and alert. No obvious cranial nerve deficits. Peripheral motor/sensory function not assessed. Normal speech. PSYCHIATRIC: Appropriate mood and affect; insight and judgment normal. (Christophe Schmidt MD, R3) A/P Assessment and Plan Mrs. Davis is an 86-year-old female with a history of CHF and COPD who presented to the emergency department with shortness of breath. History consistent with CHF exacerbation with BNP of 447. Physical exam consistent with COPD exacerbation. We will admit patient for treatment of CHF exacerbation as well as COPD exacerbation. She is slow to improve despite treatment for both COPD and CHF. Discharge Planning Will attempt to place patient in nursing assisted facility (Christophe Schmidt MD, R3) Attending Attestation Patient seen and examined. Case reviewed and discussed with the resident team. Agree with plan of care as discussed with me and documented in the resident note. as she is elderly and frail, she will benefit from SNF placement for strengthening (Shannan Baugh MD) Problem List: (1) COPD (chronic obstructive pulmonary disease) ICD Codes: J44.9 - Chronic obstructive pulmonary disease, unspecified Status: Chronic Plan: -Duo Neb every 4 hours -Albuterol neb every 2 hours when necessary for shortness of breath, to be transitioned to albuterol inhaler every 4 hours when necessary for shortness of breath -Continue home medication of Symbicort -CPT, incentive spirometry, Acapella -Monitor vital signs and pulse ox -PT consult, OT today prior to d/c -Oxygen as needed Continue treatment for suspected exacerbation: -Continue systemic steroids -Solu-Medrol 40 mg IV twice a day given for c/o SOB at rest and PE c/w COPD exacerbation; will d/c with steroid taper -s/p Prednisone 40 mg by mouth daily 03/22-03/23 -Continue antibiotic therapy -Levaquin 750 mg by mouth q48h (renally dosed) for cough with (03/23 - present ). Impression: History of COPD; recent change in sputum quality and quantity. O2 saturation of 90% on RA at admission. CXR 03/21 with compensated cardiomegaly, R mid lung atelectasis/scarring. Mild bibasilar airspace disease; likely atelectasis. VQ scan negative (2) Acute exacerbation of CHF (congestive heart failure) ICD Codes: I50.9 - Acute exacerbation of CHF (congestive heart failure) Status: Acute Plan: Impression: BNP on admission 447. Initial troponin 0.29; ACS ruled out with downtrending troponins. VQ negative -Heart healthy diet with 2 L fluid restriction -Continue diuresis -Potassium supplementation (home dose) -Lasix 40mg daily -Continue to monitor BMP -Continue patient's home medications of carvedilol, Imdur, lisinopril -radiation monitor/telemetry -Monitor intake and output and daily weights -Monitor vital signs including pulse ox -Physical therapy, OT today prior to d/c -Oxygen as needed (3) SAUNDRA (acute kidney injury) ICD Codes: N17.9 - Acute kidney failure, unspecified Status: Acute Plan: Impression: Patient with previous creatinines ranging from 1.06-1.28 presented with creatinine of 1.36 (likely from fluid overload); trended up to 1.86 with current BUN to creatinine ratio of greater than 20:1 (likely prerenal) . 03/27: Mild improvement in Cr 1.86 (03/26) -> 1.71 (03/27). Patient has negative I/ O for past several days; unclear how much patient is eating - Continue lasix 40mg daily - continue watch creatinine. per her weights and Is and Os she has not diuresed much at all. if her creatinine increases too much, her lasix can be held and it should correct (4) Abdominal discomfort ICD Codes: R10.9 - Unspecified abdominal pain Status: Acute Plan: Abdominal discomfort has moved from left lower quadrant on initial presentation to right lower quadrant today. Based on recent CT, most likely etiology is from constipation. Patient has had a bowel movement today, about every other day. -Scheduled aluminum hydroxide, magnesium hydroxide, simethicone liquid, Tums chews, simethicone chew -Pain medications as needed (5) Elevated troponin ICD Codes: R74.8 - Abnormal levels of other serum enzymes Status: Resolved Plan: Patient with history of multiple MIs and a few episodes of troponin elevation presented with troponin elevation: 0.12, 0.30, 0.29, 0.17, 0.07. She denies any chest pain. Elevations likely from fluid overload and cardiac hypoperfusion. -ACS rule out completed with troponin trended down (6) Hypertension ICD Codes: I10 - Hypertension Status: Chronic Plan: Patient presented with hypertensive urgency with blood pressure up to 190 /84, now normotensive -Continue home blood pressure medications -Continue Lasix as above -Clonidine when necessary for hypertension (7) Diabetes mellitus ICD Codes: E11.9 - Type 2 diabetes mellitus without complications Status: Chronic Plan: Patient with a diagnosis of diabetes reports that she does not feel educated about diabetes or know how to manage her diabetes. -Consult health promotion educator and dietitian, they may not see her in hospital but this can be done as an outpt if not able to do here -Low-dose scale insulin -Monitor blood sugar -Hold patient's home metformin (8) Nutrition, metabolism, and development symptoms ICD Codes: R63.8 - Other symptoms and signs concerning food and fluid intake Status: Acute Plan: Fluids: Fluid restrict Electrolytes: Monitor and replete as necessary Nutrition: Heart healthy diet with fluid restriction DVT prophylaxis: Heparin every 12 hours GI prophylaxis: Continue patient's home medication of Protonix 40 g by mouth daily Other chronic medical problems: -Continue patient's home medication calcitonin nasal spray daily for osteoporosis -Continue patient's home medication Lucrecia-Colace one tab by mouth twice a day for constipation (Christophe Schmidt MD, R3) Problem Qualifiers (1) COPD (chronic obstructive pulmonary disease): Qualified Codes: J44.1 - Chronic obstructive pulmonary disease with (acute) exacerbation (2) Acute exacerbation of CHF (congestive heart failure): Qualified Codes: I50.9 - Heart failure, unspecified (3) Diabetes mellitus: Christophe Schmidt MD, R3 Mar 27, 2017 14:33 Shannan Baugh MD Mar 29, 2017 11:28
[2017-03-28] VITALS (8 sets, daily range): BP systolic 105–144; BP diastolic 54–72; PULSE 67–86; RESP 16–20; TEMP 96.9–98.4; O2SAT 91–96
[2017-03-28] MEDS: guaiFENesin SOLUTION 200 MG/10 ML CUP PO SCH ×6 (03:00→21:12)
[2017-03-28] MEDS: HEPARIN SODIUM - SQ 10,000 UNITS/ML VIAL SQ SCH ×2 (04:06→13:57)
[2017-03-28] MEDS: ALUMINUM/MAGNESIUM/SIMETH 30 ML CUP PO SCH ×3 (05:40→17:51)
[2017-03-28] MEDS: ISOSORBIDE MONONITRATE 30 MG TAB PO SCH (06:32)
[2017-03-28 08:40] LABS: HEMATOCRIT 38.7 % (35.0-46.0); MEAN CORPUSCULAR HEMOGLOBIN 26.7 PG (27.0-34.0); MEAN CORPUSCULAR HGB CONC 32.1 % (32.0-36.0); PLATELET COUNT 255 TH/MM3 (150-450); RED BLOOD COUNT 4.66 MIL/MM3 (4.00-5.30); RED CELL DISTRIBUTION WIDTH 14.8 % (11.6-17.2); REVIEW FLAG FINAL; WHITE BLOOD COUNT 14.6 TH/MM3 (4.0-11.0)
[2017-03-28] MEDS: INSULIN ASPART SUPPLEMENTAL SCALE SQ SCH ×4 (08:42→21:00)
[2017-03-28] MEDS: DOCUSATE SODIUM 50 MG/SENNA 8.6 MG TAB PO SCH ×2 (08:43→21:13)
[2017-03-28] MEDS: BUDESONIDE-FORMOTEROL 80/4.5 MCG INHALER INH SCH ×2 (08:43→21:15)
[2017-03-28] MEDS: CALCITONIN SALM 200 UNIT/SPRAY 3.7 ML BTLN NASAL SCH (08:43)
[2017-03-28] MEDS: FUROSEMIDE 40 MG TAB PO SCH (08:44)
[2017-03-28] MEDS: POTASSIUM CHLORIDE 10 MEQ CONTROLLED RELEASE TAB PO SCH (08:44)
[2017-03-28] MEDS: LISINOPRIL 5 MG TAB PO SCH (08:44)
[2017-03-28] MEDS: CARVEDILOL 6.25 MG TAB PO SCH ×2 (08:44→21:14)
[2017-03-28] MEDS: POTASSIUM CHLORIDE 20 MEQ CONTROLLED RELEASE TAB PO SCH ×2 (08:44→21:00)
[2017-03-28] MEDS: PANTOPRAZOLE SOD 40 MG DELAYED RELEASE TAB PO SCH (08:44)
[2017-03-28] MEDS: methylPREDNISolone SOD SUCC 40 MG/1 ML VIAL IV PUSH SCH (08:45)
[2017-03-28] MEDS: CALCIUM CARBONATE 500 MG CHEWABLE TAB CHEW SCH ×3 (08:45→17:50)
[2017-03-28] MEDS: SODIUM CHLORIDE 0.9% FLUSH 10 ML FLUSH IV FLUSH SCH ×2 (08:45→21:14)
[2017-03-28 09:03] LABS: BICARBONATE 26.1 MEQ/L (21.0-32.0); POTASSIUM 4.9 MEQ/L (3.5-5.1)
[2017-03-28] MEDS ORDERED: PRED20 PO (10:43)
--- NOTE | 2017-03-28 10:57 | HHI.FPPN ---
Subjective Remarks Ms Davis had no acute events overnight. Assessed by OT yesterday and will require rehab at a SNF; spoke to Case Management this morning to find a bed. Patient feels better today but still feels like she has a cough with congestion , and sometimes feels short of breath. Patient denies chest pain, nausea, vomiting, and diarrhea, and DVT pain. (Yoni Swenson MD R1) Objective Vitals Vital Signs Date Time Temp Pulse Resp B/P (MAP) Pulse Ox O2 Delivery O2 Flow Rate FiO2 03/28/17 09:00 98.4 67 20 105/65 (78) 93 03/28/17 04:00 97.0 72 17 127/68 (87) 93 03/28/17 00:00 96.9 71 17 144/71 (95) 96 03/27/17 20:00 98.6 76 17 119/62 (81) 94 03/27/17 16:00 98.1 75 18 114/59 (77) 92 111/57 (75) 133/66 (88) 03/27/17 12:00 96.5 61 16 133/67 (89) 92 I/O 03/27/17 03/27/17 03/27/17 03/28/17 03/28/17 03/28/17 07:00 15:00 23:00 07:00 15:00 23:00 Intake Total 240 ml 720 ml Output Total 1050 ml Balance -810 ml 720 ml Intake Oral 240 ml 720 ml Output Urine Total 1050 ml # Voids 3 3 (Yoni Swenson MD R1) Result Diagram: 03/28/1772403/28/17 0725 Objective Remarks GENERAL: Well-nourished, well-developed elderly female lying in bed without respiratory distress. SKIN: Warm and dry. No rashes or bruises noted. CARDIOVASCULAR: Regular rate and rhythm, no murmurs on auscultation. Pacemaker noted in superficial left upper chest wall. RESPIRATORY: Mild bibasilar crackling and expiratory wheezing bilaterally; normal rate; no increased WOB. GASTROINTESTINAL: Abdomen soft, no distension or significant tenderness. Normal BS. No guarding or rebound. MUSCULOSKELETAL: No LE edema. Extremities without cyanosis. No obvious deformities. NEUROLOGICAL: Awake and alert. No obvious cranial nerve deficits. Peripheral motor/sensory function not assessed. Normal speech. PSYCHIATRIC: Appropriate mood and affect; insight and judgment normal. Medications and IVs Current Medications Medications (Trade) Dose Ordered Sig/Michael Route Start Time Stop Time Status Last Admin (NS Flush) 2 ml BID IV FLUSH 03/21/17 21:00 03/28/17 08:45 (NS Flush) 2 ml UNSCH PRN IV FLUSH 03/21/17 13:30 (KCl) 20 meq BID PO 03/21/17 13:30 03/28/17 08:44 (Heparin Inj) 5,000 units Q12H SQ 03/21/17 14:00 03/28/17 04:06 (Albuterol Neb) 2.5 mg Q2HR NEB PRN INH 03/21/17 13:30 (D50w (Vial) Inj) 50 ml UNSCH PRN IV 03/21/17 13:30 (Glucagon Inj) 1 mg UNSCH PRN OTHER 03/21/17 13:30 (NovoLOG SUPPLEMENTAL SCALE) 1 ACHS SLIDING SCALE SQ 03/21/17 16:00 03/27/17 21:30 (Proair Hfa Inh) 2 puff Q4HR PRN INH 03/21/17 13:45 (Symbicort 80-4.5 Mcg Inh) 2 puff BID INH 03/21/17 21:00 03/28/17 08:43 (Coreg) 6.25 mg BID PO 03/21/17 21:00 03/28/17 08:44 (Imdur) 30 mg DAILY@0700 PO 03/22/17 07:00 03/28/17 06:32 (Prinivil) 5 mg DAILY PO 03/22/17 09:00 03/28/17 08:44 (Protonix) 40 mg DAILY PO 03/22/17 09:00 03/28/17 08:44 (Lucrecia-Colace) 1 tab BID PO 03/21/17 21:00 03/28/17 08:43 (Catapres) 0.1 mg Q6H PRN PO 03/21/17 13:45 03/21/17 20:40 (Zofran Inj) 4 mg Q6H PRN IV 03/21/17 17:15 (Tylenol) 650 mg Q6H PRN PO 03/21/17 17:15 ([place] 5-325 Mg) 1 tab Q4H PRN PO 03/21/17 17:15 03/23/17 21:23 ([place] 7.5-325 Mg) 1 tab Q4H PRN PO 03/21/17 17:15 03/22/17 22:26 (Morphine Inj) 1 mg Q3H PRN IV 03/21/17 17:15 (Narcan Inj) 0.4 mg UNSCH PRN IV 03/21/17 17:15 (Milk Of Magnesia Liq) 30 ml Q12H PRN PO 03/21/17 17:15 (Senokot) 17.2 mg Q12H PRN PO 03/21/17 17:15 (Dulcolax Supp) 10 mg DAILY PRN RECTAL 03/21/17 17:15 (Lactulose Liq) 30 ml DAILY PRN PO 03/21/17 17:15 (Lasix) 40 mg DAILY PO 03/23/17 09:00 Future hold 03/28/17 08:44 (KCl) 10 meq DAILY PO 03/23/17 09:00 03/28/17 08:44 (SoluMEDROL INJ) 40 mg Q12HR IV PUSH 03/23/17 12:30 03/28/17 08:45 (Mag-Al Plus Susp Liq) 30 ml Q6H PO 03/24/17 12:00 03/27/17 06:00 (Phazyme Chew) 125 mg DAILY PO 03/24/17 12:00 03/27/17 21:32 (Levaquin) 750 mg Q48H PO 03/25/17 15:00 03/27/17 14:10 (Tums Chew) 1,000 mg TID CHEW 03/24/17 13:00 03/28/17 08:45 (Robitussin Liq) 200 mg Q4H PO 03/26/17 11:00 03/28/17 08:45 (Yoni Swenson MD R1) Urinary Catheter: No (Yoni Swenson MD R1) A/P Assessment and Plan Mrs. Davis is an 86-year-old female with a history of CHF and COPD who presented to the emergency department with shortness of breath. History consistent with CHF exacerbation with BNP of 447. Physical exam consistent with COPD exacerbation. We will admit patient for treatment of CHF exacerbation as well as COPD exacerbation. She is slow to improve despite treatment for both COPD and CHF. PT/OT assessment reinforce our assessment that pt needs rehab in a SNF, and pt would [facility] to [facility] Discharge Planning Will attempt to place patient in nursing assisted facility (Yoni Swenson MD R1) Attending Attestation Patient seen and examined. Case reviewed and discussed with the resident team. Agree with plan of care as discussed with me and documented in the resident note. agree with this pleasant, kind lady going to a snf. she did not want any aggressive cardiac evaluation or workup during this hospitalization but she does have known CAD (Shannan Baugh MD) Problem List: (1) Bronchitis ICD Codes: J40 - Bronchitis, not specified as acute or chronic Status: Acute Plan: Pt with continued cough and upper respiratory wheezing on auscultation-- COPD exacerbation resolving/resolved, but still with airway irritation and cough -Levaquin 750 mg PO q48h (renally dosed) for cough with (03/23 - present). (2) COPD (chronic obstructive pulmonary disease) ICD Codes: J44.9 - Chronic obstructive pulmonary disease, unspecified Status: Chronic Plan: -Duo Neb every 4 hours -Albuterol neb every 2 hours when necessary for shortness of breath, to be transitioned to albuterol inhaler every 4 hours when necessary for shortness of breath -Continue home medication of Symbicort -CPT, incentive spirometry, Acapella -Monitor vital signs and pulse ox -PT consult, OT today prior to d/c -Oxygen as needed Continue treatment for suspected exacerbation: -Continue systemic steroids -Solu-Medrol 40 mg IV twice a day given for c/o SOB at rest and PE c/w COPD exacerbation 03/23-03/28; will d/c with steroid taper (prednisone 40 x 3 days, 20 x 3 days, and 10 x 3 days) -s/p Prednisone 40 mg by mouth daily 03/22-03/23 -Continue antibiotic therapy -Levaquin 750 mg by mouth q48h (renally dosed) for cough with (03/23 - present ). Impression: History of COPD; recent change in sputum quality and quantity. O2 saturation of 90% on RA at admission. CXR 03/21 with compensated cardiomegaly, R mid lung atelectasis/scarring. Mild bibasilar airspace disease; likely atelectasis. VQ scan negative (3) Acute exacerbation of CHF (congestive heart failure) ICD Codes: I50.9 - Acute exacerbation of CHF (congestive heart failure) Status: Acute Plan: Impression: BNP on admission 447. Initial troponin 0.29; ACS ruled out with downtrending troponins. VQ negative -Heart healthy diet with 2 L fluid restriction -Continue diuresis -Potassium supplementation (home dose) -Lasix 40mg daily -Continue to monitor BMP -Continue patient's home medications of carvedilol, Imdur, lisinopril -research and development researcher/telemetry -Monitor intake and output and daily weights -Monitor vital signs including pulse ox -Physical therapy, OT today prior to d/c -Oxygen as needed (4) SAUNDRA (acute kidney injury) ICD Codes: N17.9 - Acute kidney failure, unspecified Status: Acute Plan: Impression: Patient with previous creatinines ranging from 1.06-1.28 presented with creatinine of 1.36 (likely from fluid overload); trended up to 1.86 with current BUN to creatinine ratio of greater than 20:1 (likely prerenal) . Mild improvement in Cr 1.86 (03/26) -> 1.71 (03/27)--> 1.67 (03/28). Patient has negative I/O for past several days; pt is eating well - Continue lasix 40mg daily - continue watch creatinine. per her weights and Is and Os she has not diuresed much at all. if her creatinine increases too much, her lasix can be held and it should correct (5) Diabetes mellitus ICD Codes: E11.9 - Type 2 diabetes mellitus without complications Status: Chronic Plan: Patient with a diagnosis of diabetes reports that she does not feel educated about diabetes or know how to manage her diabetes. -Consult prosthodontist/educator and dietitian, they may not see her in hospital but this can be done as an outpt if not able to do here -Blood glucose has been in the 99-142 range over the past 4-5 days, and 110 this morning -Low-dose scale insulin -Monitor blood sugar -Hold patient's home metformin (6) Abdominal discomfort ICD Codes: R10.9 - Unspecified abdominal pain Status: Acute Plan: Abdominal discomfort has resolved today. Based on recent CT, most likely etiology is from constipation. Patient has had a bowel movement about every other day. -Scheduled aluminum hydroxide, magnesium hydroxide, simethicone liquid, Tums chews, simethicone chew -Pain medications as needed (7) Hypertension ICD Codes: I10 - Hypertension Status: Chronic Plan: Patient presented with hypertensive urgency with blood pressure up to 190 /84, now normotensive w/one isolated BP of 144/71 overnight--controlled -Continue home blood pressure medications -Continue Lasix as above -Clonidine when necessary for hypertension (8) Elevated troponin ICD Codes: R74.8 - Abnormal levels of other serum enzymes Status: Resolved Plan: Patient with history of multiple MIs and a few episodes of troponin elevation presented with troponin elevation: 0.12, 0.30, 0.29, 0.17, 0.07. She denies any chest pain. Elevations likely from fluid overload and cardiac hypoperfusion. -ACS rule out completed with troponin trended down (9) Nutrition, metabolism, and development symptoms ICD Codes: R63.8 - Other symptoms and signs concerning food and fluid intake Status: Acute Plan: Fluids: Fluid restriction discontinued 03/28 Electrolytes: Monitor and replete as necessary Nutrition: Heart healthy diet DVT prophylaxis: Heparin every 12 hours GI prophylaxis: Continue patient's home medication of Protonix 40 g by mouth daily Activity restriction: PT and OT recommend OOB with assistance Other chronic medical problems: -Continue patient's home medication calcitonin nasal spray daily for osteoporosis -Continue patient's home medication Lucrecia-Colace one tab by mouth twice a day for constipation (Yoni Swenson MD R1) Problem Qualifiers (1) COPD (chronic obstructive pulmonary disease): Qualified Codes: J44.1 - Chronic obstructive pulmonary disease with (acute) exacerbation (2) Acute exacerbation of CHF (congestive heart failure): Qualified Codes: I50.9 - Heart failure, unspecified (3) Diabetes mellitus: Yoni Swenson MD R1 Mar 28, 2017 10:57 Shannan Baugh MD Mar 29, 2017 11:30
[2017-03-28] MEDS ORDERED: SIME1CHW11 PO (16:51)
[2017-03-28] MEDS ORDERED: LEVA750T9 PO (16:51)
[2017-03-28] MEDS ORDERED: COUG100S PO (16:51)
[2017-03-28] MEDS ORDERED: Calcium Carbonate Chew CHEW (16:51)
--- NOTE | 2017-03-28 16:53 | HHI.DCPOC ---
Discharge Care Plan Diagnosis: (1) CHF (NYHA class III, ACC/AHA stage C) (2) COPD (chronic obstructive pulmonary disease) (3) Acute exacerbation of CHF (congestive heart failure) (4) Elevated troponin (5) Hypertensive urgency (6) SAUNDRA (acute kidney injury) Goals to Promote Your Health * To prevent worsening of your condition and complications, please take medications as prescribed. * To maintain your health at the optimal level, please follow up with your doctors. Directions to Meet Your Goals Take your medications as prescribed Follow your dietary instruction Follow activity as directed Keep your appointments as scheduled Take your immunizations and boosters as scheduled If your symptoms worsen call your PCP, if no PCP go to Urgent Care Center or Emergency Room Smoking is Dangerous to Your Health. Avoid second hand smoke Call the 24-hour hour crisis hotline for domestic abuse at Ferny Draper MD R2 Mar 28, 2017 16:53
[2017-03-29 00:16] VITALS: PULSE 73
[2017-03-29 00:39] VITALS: BP 108/59; PULSE 66; RESP 16; TEMP 96.6; O2SAT 96
[2017-03-29] MEDS: ALUMINUM/MAGNESIUM/SIMETH 30 ML CUP PO SCH ×2 (01:52→07:22)
[2017-03-29] MEDS: guaiFENesin SOLUTION 200 MG/10 ML CUP PO SCH ×3 (01:53→09:41)
[2017-03-29] MEDS: HEPARIN SODIUM - SQ 10,000 UNITS/ML VIAL SQ SCH (01:53)
[2017-03-29 04:00] VITALS: BP 110/60; PULSE 71; RESP 16; TEMP 96.7; O2SAT 93
[2017-03-29 04:39] VITALS: PULSE 75
[2017-03-29] MEDS: ISOSORBIDE MONONITRATE 30 MG TAB PO SCH (07:22)
[2017-03-29 07:50] VITALS: BP 102/59; PULSE 72; RESP 20; TEMP 98.1; O2SAT 92
[2017-03-29 08:00] VITALS: PULSE 68
--- NOTE | 2017-03-29 08:29 | HHI.FPPN ---
Subjective Remarks No acute events overnight. Afebrile and vital signs stable overnight. Patient reports that she is breathing pretty good. She denies any chest pain or shortness of breath. She reports eating, drinking, moving bowels, getting up and using walker to get to bathroom. She is ready to go to a SNF to get stronger. Patient reports that drinking hot coffee resolved her upper respiratory wheezing. (Ferny Draper MD R2) Objective Vitals Vital Signs Date Time Temp Pulse Resp B/P (MAP) Pulse Ox O2 Delivery O2 Flow Rate FiO2 03/29/17 04:39 75 03/29/17 04:00 96.7 71 16 110/60 (77) 93 03/29/17 00:39 96.6 66 16 108/59 (75) 96 03/29/17 00:16 73 03/28/17 21:30 68 03/28/17 20:17 97.5 77 16 106/54 (71) 92 03/28/17 16:00 98.1 76 18 109/56 (73) 91 03/28/17 12:00 97.1 72 18 131/72 (91) 94 03/28/17 09:00 98.4 67 20 105/65 (78) 93 03/28/17 08:37 86 I/O 03/28/17 03/28/17 03/28/17 03/29/17 03/29/17 03/29/17 07:00 15:00 23:00 07:00 15:00 23:00 Intake Total 600 ml 240 ml Balance 600 ml 240 ml Intake Oral 600 ml 240 ml # Voids 5 2 (Ferny Draper MD R2) Result Diagram: 03/28/17 0725 03/28/17 0725 Imaging Last Impressions Lung Scan-VQ Nuclear Medicine 03/25/17 0000 Signed Impressions: Service Date/Time: Saturday, March 25, 2017 14:35 - CONCLUSION: 1. Low probability VQ scan. 2. Findings consistent with obstructive pulmonary disease Olu Beebe MD Chest X-Ray 03/25/17 0000 Signed Impressions: Service Date/Time: Saturday, March 25, 2017 15:19 - CONCLUSION: 1. Low probability VQ scan. 2. Findings consistent with obstructive pulmonary disease Olu Beebe MD Objective Remarks GENERAL: Well-nourished, well-developed elderly female lying in bed without respiratory distress. SKIN: Warm and dry. No rashes or bruises noted. HEENT: Arcus senilis noted bilaterally CARDIOVASCULAR: Regular rate and rhythm, no murmurs on auscultation. Pacemaker noted in superficial left upper chest wall. RESPIRATORY: Clear to auscultation bilaterally; normal rate; no increased WOB. No wheezes today. GASTROINTESTINAL: Abdomen soft, no distension or significant tenderness. Normal BS. No guarding or rebound. MUSCULOSKELETAL: No LE edema. Extremities without cyanosis. No obvious deformities. NEUROLOGICAL: Awake and alert. No obvious cranial nerve deficits. Grossly normal motor/sensory function. Normal speech. PSYCHIATRIC: Appropriate mood and affect; insight and judgment normal. (Ferny Draper MD R2) A/P Assessment and Plan Mrs. Davis is an 86-year-old female with a history of CHF who presented to the emergency department with shortness of breath. History consistent with CHF exacerbation with BNP of 447. Physical exam with diffuse wheezing. We will admit patient for treatment of CHF exacerbation as well as treat for a possible COPD exacerbation. She is slow to improve despite treatment for both COPD and CHF. OT assessment reinforced our assessment that pt needs rehab in a SNF, and pt would like to go back to the [facility]. Discharge Planning Will attempt to place patient in halfway facility (Ferny Draper MD R2) Attending Attestation Patient seen and examined. Case reviewed and discussed with the resident team. Agree with plan of care as discussed with me and documented in the resident note. she is slow to improve and needs rehab to build her strength (Shannan Baugh MD) Problem List: (1) Bronchitis ICD Codes: J40 - Bronchitis, not specified as acute or chronic Status: Acute Plan: Pt with continued cough and resolved upper respiratory wheezing on auscultation--history inconsistent with COPD exacerbation -Levaquin 750 mg PO q48h (renally dosed) for cough with (03/23 - present). -Discharge on Steroid taper -Duo Neb every 4 hours -Albuterol neb every 2 hours when necessary for shortness of breath, to be transitioned to albuterol inhaler every 4 hours when necessary for shortness of breath -Continue home medication of Symbicort -CPT, incentive spirometry, Acapella -Monitor vital signs and pulse ox -PT consult, OT today prior to d/c -Oxygen as needed Continue treatment for suspected exacerbation: -Continue systemic steroids -Solu-Medrol 40 mg IV twice a day given for c/o SOB at rest and PE c/w COPD exacerbation 03/23-03/28; will d/c with steroid taper (prednisone 40 x 3 days, 20 x 3 days, and 10 x 3 days) -s/p Prednisone 40 mg by mouth daily 03/22-03/23 -Continue antibiotic therapy -Levaquin 750 mg by mouth q48h (renally dosed) for cough with (03/23 - present ). Impression: NO history of COPD; recent change in sputum quality and quantity. O2 saturation of 90% on RA at admission. CXR 03/21 with compensated cardiomegaly, R mid lung atelectasis/scarring. Mild bibasilar airspace disease; likely atelectasis. VQ scan negative (2) Acute exacerbation of CHF (congestive heart failure) ICD Codes: I50.9 - Acute exacerbation of CHF (congestive heart failure) Status: Resolved Plan: Impression: BNP on admission 447. Initial troponin 0.29; ACS ruled out with downtrending troponins. VQ negative -Heart healthy diet -Continue diuresis -Potassium supplementation (home dose) -Lasix 40mg daily -Continue to monitor BMP -Continue patient's home medications of carvedilol, Imdur, lisinopril -conveyor monitor/telemetry -Monitor intake and output and daily weights -Monitor vital signs including pulse ox -Physical therapy, OT recommended OT rehab at SNF -Oxygen as needed (3) SAUNDRA (acute kidney injury) ICD Codes: N17.9 - Acute kidney failure, unspecified Status: Acute Plan: Impression: Patient with previous creatinines ranging from 1.06-1.28 presented with creatinine of 1.36 (likely from fluid overload); trended up to 1.86 on 03/26with current BUN to creatinine ratio of greater than 20:1 (likely prerenal). Subsequently trending down . Mild improvement in Cr 1.86 (03/26) -> 1.71 (03/27)--> 1.67 (03/28). Patient is eating well - Continue lasix 40mg daily without fluid restriction (4) Diabetes mellitus ICD Codes: E11.9 - Type 2 diabetes mellitus without complications Status: Chronic Plan: Patient with a diagnosis of diabetes reports that she does not feel educated about diabetes or know how to manage her diabetes. Blood glucose has been well controlled here in the hospital. -Consult community health educator and dietitian, they may not see her in hospital but this can be done as an outpt if not able to do here -Low-dose scale insulin; discontinue upon d/c -Monitor blood sugar -Hold patient's home metformin; can resume upon d/c (5) Abdominal discomfort ICD Codes: R10.9 - Unspecified abdominal pain Status: Acute Plan: Abdominal discomfort has resolved today. Based on recent CT, most likely etiology is from constipation. Patient has had a bowel movement about every other day. -Scheduled aluminum hydroxide, magnesium hydroxide, simethicone liquid, Tums chews, simethicone chew, which seem to have helped -Pain medications as needed (6) Hypertension ICD Codes: I10 - Hypertension Status: Chronic Plan: Patient presented with hypertensive urgency with blood pressure up to 190 /84, now normotensive and well controlled. -Continue home blood pressure medications -Continue Lasix as above -Clonidine when necessary for hypertension (7) Elevated troponin ICD Codes: R74.8 - Abnormal levels of other serum enzymes Status: Resolved Plan: Patient with history of multiple MIs and a few episodes of troponin elevation presented with troponin elevation: 0.12, 0.30, 0.29, 0.17, 0.07. She denies any chest pain. Elevations likely from fluid overload and cardiac hypoperfusion. -ACS rule out completed with troponin trended down (8) Nutrition, metabolism, and development symptoms ICD Codes: R63.8 - Other symptoms and signs concerning food and fluid intake Status: Acute Plan: Fluids: Fluid restriction discontinued 03/28 Electrolytes: Monitor and replete as necessary Nutrition: Heart healthy diet DVT prophylaxis: Heparin every 12 hours GI prophylaxis: Continue patient's home medication of Protonix 40 g by mouth daily Activity restriction: PT and OT recommend OOB with assistance Other chronic medical problems: -Continue patient's home medication calcitonin nasal spray daily for osteoporosis -Continue patient's home medication Lucrecia-Colace one tab by mouth twice a day for constipation (Ferny Draper MD R2) Problem Qualifiers (1) Acute exacerbation of CHF (congestive heart failure): Qualified Codes: I50.9 - Heart failure, unspecified (2) Diabetes mellitus: Ferny Draper MD R2 Mar 29, 2017 08:29 Shannan Baugh MD Mar 31, 2017 15:56
[2017-03-29] MEDS ORDERED: predniSONE 20 MG TAB PO SCH (09:00)
[2017-03-29] MEDS: LISINOPRIL 5 MG TAB PO SCH (09:39)
[2017-03-29] MEDS: POTASSIUM CHLORIDE 10 MEQ CONTROLLED RELEASE TAB PO SCH (09:39)
[2017-03-29] MEDS: DOCUSATE SODIUM 50 MG/SENNA 8.6 MG TAB PO SCH (09:39)
[2017-03-29] MEDS: FUROSEMIDE 40 MG TAB PO SCH (09:39)
[2017-03-29] MEDS: SIMETHICONE 125 MG CHEWABLE TAB PO SCH (09:40)
[2017-03-29] MEDS: POTASSIUM CHLORIDE 20 MEQ CONTROLLED RELEASE TAB PO SCH (09:40)
[2017-03-29] MEDS: CARVEDILOL 6.25 MG TAB PO SCH (09:40)
[2017-03-29] MEDS: CALCIUM CARBONATE 500 MG CHEWABLE TAB CHEW SCH (09:40)
[2017-03-29] MEDS: PANTOPRAZOLE SOD 40 MG DELAYED RELEASE TAB PO SCH (09:40)
[2017-03-29] MEDS: CALCITONIN SALM 200 UNIT/SPRAY 3.7 ML BTLN NASAL SCH (09:41)
[2017-03-29] MEDS: BUDESONIDE-FORMOTEROL 80/4.5 MCG INHALER INH SCH (09:41)
[2017-03-29] MEDS: SODIUM CHLORIDE 0.9% FLUSH 10 ML FLUSH IV FLUSH SCH (09:51)
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
[2017-04-07] MEDS ORDERED: PANT40TA3 PO (19:48)
== END 2017-03-29 12:03 | DRG 292 ==
LOC: NEPC 08:51 → NEDA 12:39 → HOCB 17:04
PROVIDERS: ADMIT Family Medicine; ATTEND Family Medicine
DX: I11.0 Hypertensive heart disease with heart failure (principal); N17.9 Acute kidney failure, unspecified; J98.11 Atelectasis; I50.9 Heart failure, unspecified; J40 Bronchitis, not specified as acute or chronic; E11.9 Type 2 diabetes mellitus without complications; I16.0 Hypertensive urgency; M19.90 Unspecified osteoarthritis, unspecified site; I25.2 Old myocardial infarction; E78.00 Pure hypercholesterolemia, unspecified; Z86.73 Personal history of transient ischemic attack (TIA), and cerebral infarction without residual deficits; I25.10 Atherosclerotic heart disease of native coronary artery without angina pectoris; H91.90 Unspecified hearing loss, unspecified ear; K21.9 Gastro-esophageal reflux disease without esophagitis; Z95.810 Presence of automatic (implantable) cardiac defibrillator; F32.9 Major depressive disorder, single episode, unspecified; Z87.891 Personal history of nicotine dependence; Z80.1 Family history of malignant neoplasm of trachea, bronchus and lung; M81.0 Age-related osteoporosis without current pathological fracture; K59.00 Constipation, unspecified; R74.8 Abnormal levels of other serum enzymes; H18.413 Arcus senilis, bilateral
CPT/HCPCS: 71010; 71020; 76937; 78582; 80048; 80053; 82948; 83880; 84484; 85025; 85027; 93005; 94150; 94640; 94664; 94667; 96374; A9540; A9567; J1644; J1815; J1940; J2920; J7050; J7512; J7613